=== PATIENT | female | born 1955 | race Caucasian/White ===

== ENCOUNTER 2018-11-06 07:09 | Emergency (ER) | payer MEDICARE, MEDICAID ==
--- NOTE | 2018-11-06 07:17 | EDM.PDOC ---
ED HPI GENERAL MEDICAL PROBLEM - General Chief Complaint: Lower Extremity Injury/Pain Stated Complaint: LEFT FOOT SWOLLEN Time Seen by Provider: 11/06/18 07:16 Source of Information: Reports: EMS History Limitations: Reports: No Limitations, Altered Mental Status - History of Present Illness INITIAL COMMENTS - FREE TEXT/NARRATIVE: History of present illness: []Patient is a resident at [facility] who was sent over on the [employer] [employer] for evaluation of her left foot has swelling. Review of systems: As per history of present illness and below otherwise all systems reviewed and negative. Past medical history: As per history of present illness and as reviewed below otherwise noncontributory. Surgical history: As per history of present illness and as reviewed below otherwise noncontributory. Social history: No reported history of drug or alcohol abuse. Family history: As per history of present illness and as reviewed below otherwise noncontributory. Physical exam: General: Well developed, thin in NAD HEENT: Atraumatic, normocephalic, pupils reactive, negative for conjunctival pallor or scleral icterus, mucous membranes moist, throat clear, neck supple, nontender, trachea midline. Lungs: Clear to auscultation, breath sounds equal bilaterally, chest nontender. Heart: S1S2, regular, negative for clicks, rubs, or JVD. Abdomen: NABS, Soft, nondistended, nontender. Negative for masses or hepatosplenomegaly. Negative for costovertebral tenderness. Pelvis: Stable nontender. Genitourinary: Deferred. Rectal: Deferred. Extremities: Ecchymosis on right big toe, left foot is edematous and mildly erythematous not warm to touch pulses are and visible contractures Neuro: Awake, Motor and sensory unremarkable throughout. Exam nonfocal. Skin:warm and dry Diagnostics: Signs stable, x-ray left foot-rays -achilles bursitis no acute fracture on throughout , CBC Therapeutics: Tylenol with Codeine ED Course: Stable Impression: Left swelling, Prescriptions: none Plan: Take meds as directed, follow up with your primary care physician, return to ER if symptoms worsen or change. Definitive disposition and diagnosis as appropriate pending reevaluation and review of above. - Related Data Allergies Allergy/AdvReac Type Severity Reaction Status Date / Time Penicillins Allergy Rash Verified 11/06/18 07:16 venom-honey bee Allergy Anaphylactic Verified 11/06/18 07:16 [bee venom (honey bee)] Shock Home Meds: Home Meds Polyethylene Glycol 3350 [Miralax] 17 g PO BID 11/20/14 [History] fluvoxaMINE Maleate [Fluvoxamine Maleate] 50 mg PO BID 11/20/14 [History] Acetaminophen [Arthritis Pain Relief] 650 mg PO Q4HR PRN 11/06/18 [History] Bisacodyl [Gentle Laxative] 10 mg RC ASDIRECTED PRN 11/06/18 [History] Cholecalciferol (Vitamin D3) [Vitamin D3] 1,000 unit PO DAILY 11/06/18 [History] ClonazePAM [KlonoPIN] 1 tab PO BID 11/06/18 [History] Docusate Sodium [Colace] 100 mg PO DAILY 11/06/18 [History] Multivitamin [Multivitamins] 1 each PO DAILY 11/06/18 [History] traZODone HCl [Trazodone HCl] 25 mg PO BEDTIME 11/06/18 [History] Review of Systems - Review of Systems Review Of Systems: See Below ED EXAM, GENERAL - Physical Exam Exam: See Below Course - Vital Signs Last Recorded V/S: Last Vital Signs Temp 98.3 F 11/06/18 07:14 Pulse 98 11/06/18 07:14 Resp 20 11/06/18 07:14 BP 130/56 L 11/06/18 07:14 Pulse Ox 92 L 11/06/18 07:14 - Orders/Labs/Meds Labs: Laboratory Tests 11/06/18 Range/Units 07:36 WBC 10.89 (4.0-11.0) K/uL RBC 4.21 L (4.30-5.90) M/uL Hgb 13.2 (12.0-16.0) g/dL Hct 40.8 (36.0-46.0) % MCV 96.9 (80.0-98.0) fL MCH 31.4 (27.0-32.0) pg MCHC 32.4 (31.0-37.0) g/dL RDW Std Deviation 46.6 (28.0-62.0) fl RDW Coeff of John 13 (11.0-15.0) % Plt Count 123 L (150-400) K/uL MPV 10.00 (7.40-12.00) fL Neut % (Auto) 71.6 (48.0-80.0) % Lymph % (Auto) 17.6 (16.0-40.0) % [place] % (Auto) 7.3 (0.0-15.0) % Eos % (Auto) 3.2 (0.0-7.0) % Baso % (Auto) 0.3 (0.0-1.5) % Neut # (Auto) 7.8 H (1.4-5.7) K/uL Lymph # (Auto) 1.9 (0.6-2.4) K/uL [place] # (Auto) 0.8 (0.0-0.8) K/uL Eos # (Auto) 0.4 (0.0-0.7) K/uL Baso # (Auto) 0.0 (0.0-0.1) K/uL Nucleated RBC % 0.0 /100WBC Nucleated RBCs # 0 K/uL Meds: Medications Discontinued Medications Generic Name Dose Route Start Last Admin Trade Name Freq PRN Reason Stop Dose Admin Acetaminophen/Codeine Phosphate 15 ml 11/06/18 08:35 Tylenol/Codeine 120-12 Mg/5 Ml PO 11/06/18 08:36 ONETIME ONE Departure - Departure Time of Disposition: 08:40 Disposition: DC/Tfer to [facility] Condition: Good, Fair Clinical Impression: Swelling of left foot - Discharge Information *PRESCRIPTION DRUG MONITORING PROGRAM REVIEWED*: Not Applicable *COPY OF PRESCRIPTION DRUG MONITORING REPORT IN PATIENT [place]: Not Applicable Referrals: PCP,None [Primary Care Provider] - Forms: ED Department Discharge Additional Instructions: The following information is given to patients seen in the emergency department who are being discharged to home. This information is to outline your options for follow-up care. We provide all patients seen in our emergency department with a follow-up referral. The need for follow-up, as well as the timing and circumstances, are variable depending upon the specifics of your emergency department visit. If you don't have a primary care physician on staff, we will provide you with a referral. We always advise you to contact your personal physician following an emergency department visit to inform them of the circumstance of the visit and for follow-up with them and/or the need for any referrals to a consulting specialist. The emergency department will also refer you to a specialist when appropriate. This referral assures that you have the opportunity for follow-up care with a specialist. All of these measure are taken in an effort to provide you with optimal care, which includes your follow-up. Under all circumstances we always encourage you to contact your private physician who remains a resource for coordinating your care. When calling for follow-up care, please make the office aware that this follow-up is from your recent emergency room visit. If for any reason you are refused follow-up, please contact the [facility] Emergency Department at and asked to speak to the emergency department charge nurse. Take meds as directed, follow up with your primary care physician, return to ER if symptoms worsen or change. [facility] [address] [place] [id number]
--- NOTE | 2018-11-06 08:24 | CR ---
INDICATION: Left foot pain and swelling. COMPARISON: None. TECHNIQUE: Two views of the left foot. FINDINGS: The bones are demineralized. Small plantar calcaneal spur. No acute fracture or dislocation. Swelling in the region of the distal Achilles tendon could be due to bursitis or Achilles tendon pathology. Diffuse soft tissue swelling. IMPRESSION: 1. Opacity/swelling in the region of the distal Achilles tendon could be due to bursitis or perhaps Achilles tendon pathology. 2. Diffuse soft tissue swelling and markedly demineralized bones. 3. No acute fracture. Dictated by Christopher Pérez MD @ Nov 06 2018 8:19AM Signed by Dr. Christopher Pérez @ Nov 06 2018 8:22AM
[2018-11-06] MEDS ORDERED: Acetaminophen/Codeine 120-12 MG/5 ML Soln 5 ML UD Cup PO ONE (08:35)
[2018-11-06 09:23] VITALS: BP 107/52; PULSE 94
== END 2018-11-06 09:17 ==
LOC: MW.ED 07:09
DX: M79.89 Other specified soft tissue disorders (principal); M79.81 Nontraumatic hematoma of soft tissue; Z88.0 Allergy status to penicillin; Z91.030 Bee allergy status; Z79.899 Other long term (current) drug therapy
CPT/HCPCS: 36415; 73620; 85025; 99283; A9270

== ENCOUNTER 2019-12-29 15:23 | Inpatient (IN) | payer MEDICARE, MEDICAID ==
--- NOTE | 2019-12-29 16:06 | EDM.PDOC ---
<Jj Tarango - Last Filed: 12/29/19 20:24> ED HPI GENERAL MEDICAL PROBLEM - General Chief Complaint: Respiratory Problem Stated Complaint: UNKNOWN BELKIS PATIENT Time Seen by Provider: 12/29/19 15:53 - Related Data Allergies Allergy/AdvReac Type Severity Reaction Status Date / Time Penicillins Allergy Rash Verified 11/06/18 07:16 venom-honey bee Allergy Anaphylactic Verified 11/06/18 07:16 [bee venom (honey bee)] Shock Home Meds: Home Meds fluvoxaMINE Maleate [Fluvoxamine Maleate] 50 mg PO BID 11/20/14 [History] polyethylene glycoL 3350 [Miralax] 17 g PO BID 11/20/14 [History] Acetaminophen [Arthritis Pain Relief] 650 mg PO Q4HR PRN 11/06/18 [History] Bisacodyl [Gentle Laxative] 10 mg RC ASDIRECTED PRN 11/06/18 [History] Cholecalciferol (Vitamin D3) [Vitamin D3] 1,000 unit PO DAILY 11/06/18 [History] ClonazePAM [KlonoPIN] 1 tab PO BID 11/06/18 [History] Docusate Sodium [Colace] 100 mg PO DAILY 11/06/18 [History] Multivitamin [Multivitamins] 1 each PO DAILY 11/06/18 [History] traZODone HCl [Trazodone HCl] 25 mg PO BEDTIME 11/06/18 [History] Departure - Departure Time of Disposition: 20:24 Disposition: Admitted As Inpatient 67 Condition: Good Clinical Impression: UTI (urinary tract infection), Hypoxia - Discharge Information *PRESCRIPTION DRUG MONITORING PROGRAM REVIEWED*: Not Applicable *COPY OF PRESCRIPTION DRUG MONITORING REPORT IN PATIENT [place]: Not Applicable <Ricardo Slater - Last Filed: 12/30/19 06:59> ED HPI GENERAL MEDICAL PROBLEM - General Source of Information: Reports: Patient History Limitations: Reports: Other (dementia) - History of Present Illness INITIAL COMMENTS - FREE TEXT/NARRATIVE: 63-year-old female past medical history bipolar disorder, anxiety, depression, PTSD, intellectual disability presents from [facility] for fever, tac hypnea, tachycardia, rash to abdomen. Patient answers yes when asked her name, but does not answer any other questions. Past Medical History Psychiatric History: Reports: Anxiety, Bipolar, Mood Swings, PTSD Endocrine/Metabolic History: Reports: Hypothyroidism Hematologic History: Reports: Anemia Social & Family History - Family History Family Medical History: No Pertinent Family History ED ROS GENERAL - Review of Systems Review Of Systems: Unable To Obtain Reason Not Obtained: nonverbal ED EXAM, GENERAL - Physical Exam Exam: See Below Exam Limited By: Other (intellectual disability) General Appearance: Alert, No Apparent Distress Throat/Mouth: No Airway Compromise Head: Atraumatic, Normocephalic Neck: Normal Inspection Respiratory/Chest: No Respiratory Distress, Lungs Clear, Normal Breath Sounds, No Accessory Muscle Use Cardiovascular: Normal Peripheral Pulses, Regular Rate, Rhythm GI/Abdominal: Soft, Non-Tender Extremities: Normal Inspection Neurological: Alert Skin Exam: Warm, Dry, Intact, Normal Color #1 Interpretation EKG Date: 12/29/19 Time: 16:52 Rhythm: Other (sinus tach) Rate (Beats/Min): 101 [place]: Normal P-Wave: Present QRS: Normal ST-T: Normal QT: Prolonged (514) UT/PQ Interval: 142 Comparison: NA - No Prior EKG Course - Vital Signs Last Recorded V/S: Last Vital Signs Temp 98.1 F 12/30/19 04:40 Pulse 108 H 12/30/19 04:40 Resp 26 H 12/30/19 04:40 BP 122/56 L 12/30/19 04:40 Pulse Ox 91 L 12/30/19 04:40 - Orders/Labs/Meds Orders: Active Orders 24 hr Category Date Time Status Patient Status [ADT] Routine ADT 12/29/19 20:23 Active Cardiac Monitoring [RC] . DIRECTED Care 12/29/19 16:20 Active EKG Documentation Completion [RC] STAT Care 12/29/19 16:20 Active Buckner Catheter Insertion [Insert Urinary Catheter] [OM. Care 12/29/19 18:45 Ordered PC] Q24H Pulse Oximetry [RC] ASDIRECTED Care 12/29/19 16:20 Active Urinary Catheter Assessment [RC] ASDIRECTED Care 12/29/19 18:41 Active CULTURE BLOOD [BC] Stat Lab 12/29/19 17:01 Results CULTURE BLOOD [BC] Stat Lab 12/29/19 17:06 Received Sodium Chloride 0.9% [Saline Flush] Med 12/29/19 16:20 Active 10 ml FLUSH ASDIRECTED PRN Sodium Chloride 0.9% [Saline Flush] Med 12/29/19 16:20 Active 2.5 ml FLUSH ASDIRECTED PRN Blood Culture x2 Reflex Set [OM.PC] Stat Ot 12/29/19 16:21 Ordered Saline Lock Insert [OM.PC] Stat Ot 12/29/19 16:20 Ordered Medication Orders Bisacodyl (Dulcolax) 10 mg RECTAL Q3D PRN PRN Reason: Constipation Cholecalciferol (Vitamin D3) 25 mcg PO DAILY [facility] Clonazepam (Klonopin) 0.5 mg PO BID [facility] Docusate Sodium (Colace) 100 mg PO DAILY [facility] Fluvoxamine Maleate (Fluvoxamine) 50 mg PO BID [facility] Heparin Sodium (Porcine) (Heparin Sodium) 5,000 units SUBCUT Q8H [facility] Last Admin: 12/30/19 02:46 Dose: 5,000 units Documented by: BART Azithromycin 500 mg/ Sodium (Chloride) 250 mls @ 250 mls/hr IV Q24H [facility] Last Admin: 12/30/19 02:46 Dose: 250 mls/hr Documented by: BART Cefepime HCl 1 gm/ Premix 50 mls @ 100 mls/hr IV Q8H [facility] Last Admin: 12/30/19 02:46 Dose: 100 mls/hr Documented by: BART Non-Formulary Medication (Acetaminophen) 650 mg PO Q4HR PRN PRN Reason: Pain Polyethylene Glycol (Miralax) 17 gm PO BID [facility] Sodium Chloride (Saline Flush) 10 ml FLUSH ASDIRECTED PRN PRN Reason: Keep Vein Open Last Admin: 12/29/19 16:44 Dose: 10 ml Documented by: SAL Sodium Chloride (Saline Flush) 2.5 ml FLUSH ASDIRECTED PRN PRN Reason: Keep Vein Open Last Admin: 12/29/19 16:44 Dose: 2.5 ml Documented by: SAL Trazodone HCl (Trazodone) 25 mg PO BEDTIME [facility] Labs: Laboratory Tests 12/29/19 12/29/19 12/29/19 Range/Units 16:43 16:43 16:43 WBC 11.94 H (4.0-11.0) K/uL RBC 4.28 L (4.30-5.90) M/uL Hgb 13.7 (12.0-16.0) g/dL Hct 41.6 (36.0-46.0) % MCV 97.2 (80.0-98.0) fL MCH 32.0 (27.0-32.0) pg MCHC 32.9 (31.0-37.0) g/dL RDW Std Deviation 46.4 (28.0-62.0) fl RDW Coeff of John 13 (11.0-15.0) % Plt Count 104 L (150-400) K/uL MPV 10.70 (7.40-12.00) fL Neut % (Auto) 84.6 H (48.0-80.0) % Lymph % (Auto) 9.4 L (16.0-40.0) % [place] % (Auto) 5.2 (0.0-15.0) % Eos % (Auto) 0.5 (0.0-7.0) % Baso % (Auto) 0.3 (0.0-1.5) % Neut # (Auto) 10.1 H (1.4-5.7) K/uL Lymph # (Auto) 1.1 (0.6-2.4) K/uL [place] # (Auto) 0.6 (0.0-0.8) K/uL Eos # (Auto) 0.1 (0.0-0.7) K/uL Baso # (Auto) 0.0 (0.0-0.1) K/uL Nucleated RBC % 0.0 /100WBC Nucleated RBCs # 0 K/uL INR 1.01 APTT 23.3 (18.6-31.3) SEC Lactate 1.5 (0.20-2.00) mmol/L Sodium (136-145) mmol/L Potassium (3.5-5.1) mmol/L Chloride (98-107) mmol/L Carbon Dioxide (21.0-32.0) mmol/L BUN (7.0-18.0) mg/dL Creatinine (0.6-1.0) mg/dL Est Cr Clr Drug Dosing Estimated GFR (MDRD) ml/min Glucose (74-106) mg/dL Calcium (8.5-10.1) mg/dL Magnesium (1.8-2.4) mg/dL Total Bilirubin (0.2-1.0) mg/dL AST (15-37) IU/L ALT (14-63) IU/L Alkaline Phosphatase (46-116) U/L Troponin I (0.000-0.056) ng/mL C-Reactive Protein (0.00-0.90) mg/dL B-Natriuretic Peptide (<100) PG/ML Total Protein (6.4-8.2) g/dL Albumin (3.4-5.0) g/dL Globulin (2.6-4.0) g/dL Albumin/Globulin Ratio (0.9-1.6) Lipase (73-393) U/L Urine Color Urine Appearance Urine pH (5.0-8.0) Ur Specific [place] (1.001-1.035) Urine Protein (NEGATIVE) mg/dL Urine Glucose (UA) (NEGATIVE) mg/dL Urine Ketones (NEGATIVE) mg/dL Urine Occult Blood (NEGATIVE) Urine Nitrite (NEGATIVE) Urine Bilirubin (NEGATIVE) Urine Urobilinogen (<2.0) EU/dL Ur Leukocyte Esterase (NEGATIVE) Urine RBC (0-2/HPF) Urine WBC (0-5/HPF) Ur Epithelial Cells (NONE-FEW) Urine Bacteria (NEGATIVE) SARS-CoV-2 RNA ([place]) (NEGATIVE) 12/29/19 12/29/19 12/29/19 Range/Units 16:43 16:43 18:44 WBC (4.0-11.0) K/uL RBC (4.30-5.90) M/uL Hgb (12.0-16.0) g/dL Hct (36.0-46.0) % MCV (80.0-98.0) fL MCH (27.0-32.0) pg MCHC (31.0-37.0) g/dL RDW Std Deviation (28.0-62.0) fl RDW Coeff of John (11.0-15.0) % Plt Count (150-400) K/uL MPV (7.40-12.00) fL Neut % (Auto) (48.0-80.0) % Lymph % (Auto) (16.0-40.0) % [place] % (Auto) (0.0-15.0) % Eos % (Auto) (0.0-7.0) % Baso % (Auto) (0.0-1.5) % Neut # (Auto) (1.4-5.7) K/uL Lymph # (Auto) (0.6-2.4) K/uL [place] # (Auto) (0.0-0.8) K/uL Eos # (Auto) (0.0-0.7) K/uL Baso # (Auto) (0.0-0.1) K/uL Nucleated RBC % /100WBC Nucleated RBCs # K/uL INR APTT (18.6-31.3) SEC Lactate (0.20-2.00) mmol/L Sodium 142 (136-145) mmol/L Potassium 4.2 (3.5-5.1) mmol/L Chloride 108 H (98-107) mmol/L Carbon Dioxide 26.3 (21.0-32.0) mmol/L BUN 18 (7.0-18.0) mg/dL Creatinine 0.7 (0.6-1.0) mg/dL Est Cr Clr Drug Dosing TNP Estimated GFR (MDRD) > 60.0 ml/min Glucose 126 H (74-106) mg/dL Calcium 9.0 (8.5-10.1) mg/dL Magnesium 2.2 (1.8-2.4) mg/dL Total Bilirubin 0.7 (0.2-1.0) mg/dL AST 65 H (15-37) IU/L ALT 40 (14-63) IU/L Alkaline Phosphatase 70 (46-116) U/L Troponin I 0.554 H* (0.000-0.056) ng/mL C-Reactive Protein 21.40 H (0.00-0.90) mg/dL B-Natriuretic Peptide 426 H (<100) PG/ML Total Protein 7.6 (6.4-8.2) g/dL Albumin 3.4 (3.4-5.0) g/dL Globulin 4.2 H (2.6-4.0) g/dL Albumin/Globulin Ratio 0.8 L (0.9-1.6) Lipase 109 (73-393) U/L Urine Color YELLOW Urine Appearance CLEAR Urine pH 6.5 (5.0-8.0) Ur Specific [place] 1.025 (1.001-1.035) Urine Protein 30 H (NEGATIVE) mg/dL Urine Glucose (UA) 100 H (NEGATIVE) mg/dL Urine Ketones 15 H (NEGATIVE) mg/dL Urine Occult Blood SMALL H (NEGATIVE) Urine Nitrite POSITIVE H (NEGATIVE) Urine Bilirubin NEGATIVE (NEGATIVE) Urine Urobilinogen 0.2 (<2.0) EU/dL Ur Leukocyte Esterase TRACE H (NEGATIVE) Urine RBC 2-3 (0-2/HPF) Urine WBC 2-3 (0-5/HPF) Ur Epithelial Cells RARE (NONE-FEW) Urine Bacteria 3+ H (NEGATIVE) SARS-CoV-2 RNA ([place]) (NEGATIVE) 12/29/19 12/29/19 Range/Units 18:52 18:57 WBC (4.0-11.0) K/uL RBC (4.30-5.90) M/uL Hgb (12.0-16.0) g/dL Hct (36.0-46.0) % MCV (80.0-98.0) fL MCH (27.0-32.0) pg MCHC (31.0-37.0) g/dL RDW Std Deviation (28.0-62.0) fl RDW Coeff of John (11.0-15.0) % Plt Count (150-400) K/uL MPV (7.40-12.00) fL Neut % (Auto) (48.0-80.0) % Lymph % (Auto) (16.0-40.0) % [place] % (Auto) (0.0-15.0) % Eos % (Auto) (0.0-7.0) % Baso % (Auto) (0.0-1.5) % Neut # (Auto) (1.4-5.7) K/uL Lymph # (Auto) (0.6-2.4) K/uL [place] # (Auto) (0.0-0.8) K/uL Eos # (Auto) (0.0-0.7) K/uL Baso # (Auto) (0.0-0.1) K/uL Nucleated RBC % /100WBC Nucleated RBCs # K/uL INR APTT (18.6-31.3) SEC Lactate (0.20-2.00) mmol/L Sodium (136-145) mmol/L Potassium (3.5-5.1) mmol/L Chloride (98-107) mmol/L Carbon Dioxide (21.0-32.0) mmol/L BUN (7.0-18.0) mg/dL Creatinine (0.6-1.0) mg/dL Est Cr Clr Drug Dosing Estimated GFR (MDRD) ml/min Glucose (74-106) mg/dL Calcium (8.5-10.1) mg/dL Magnesium (1.8-2.4) mg/dL Total Bilirubin (0.2-1.0) mg/dL AST (15-37) IU/L ALT (14-63) IU/L Alkaline Phosphatase (46-116) U/L Troponin I 0.498 H* (0.000-0.056) ng/mL C-Reactive Protein (0.00-0.90) mg/dL B-Natriuretic Peptide (<100) PG/ML Total Protein (6.4-8.2) g/dL Albumin (3.4-5.0) g/dL Globulin (2.6-4.0) g/dL Albumin/Globulin Ratio (0.9-1.6) Lipase (73-393) U/L Urine Color Urine Appearance Urine pH (5.0-8.0) Ur Specific [place] (1.001-1.035) Urine Protein (NEGATIVE) mg/dL Urine Glucose (UA) (NEGATIVE) mg/dL Urine Ketones (NEGATIVE) mg/dL Urine Occult Blood (NEGATIVE) Urine Nitrite (NEGATIVE) Urine Bilirubin (NEGATIVE) Urine Urobilinogen (<2.0) EU/dL Ur Leukocyte Esterase (NEGATIVE) Urine RBC (0-2/HPF) Urine WBC (0-5/HPF) Ur Epithelial Cells (NONE-FEW) Urine Bacteria (NEGATIVE) SARS-CoV-2 RNA ([place]) NEGATIVE (NEGATIVE) Meds: Medications Generic Name Dose Route Start Last Admin Trade Name Freq PRN Reason Stop Dose Admin Bisacodyl 10 mg 12/29/19 23:18 Dulcolax RECTAL Q3D PRN Constipation Cholecalciferol 25 mcg 12/30/19 09:00 Vitamin D3 PO DAILY [facility] Clonazepam 0.5 mg 12/30/19 09:00 Klonopin PO BID [facility] Docusate Sodium 100 mg 12/30/19 09:00 Colace PO DAILY [facility] Fluvoxamine Maleate 50 mg 12/30/19 09:00 Fluvoxamine PO BID [facility] Heparin Sodium (Porcine) 5,000 units 12/30/19 00:00 12/30/19 02:46 Heparin Sodium SUBCUT 5,000 units Q8H ANDREZ Administration Azithromycin 500 mg/ Sodium 250 mls @ 250 mls/hr 12/29/19 23:00 12/30/19 02:46 Chloride IV 250 mls/hr Q24H ANDREZ Administration Cefepime HCl 1 gm/ Premix 50 mls @ 100 mls/hr 12/30/19 01:00 12/30/19 02:46 IV 100 mls/hr Q8H ANDREZ Administration Non-Formulary Medication 650 mg 12/29/19 23:18 Acetaminophen PO Q4HR PRN Pain Polyethylene Glycol 17 gm 12/30/19 09:00 Miralax PO BID ANDREZ Sodium Chloride 10 ml 12/29/19 16:20 12/29/19 16:44 Saline Flush FLUSH 10 ml ASDIRECTED PRN Administration Keep Vein Open Sodium Chloride 2.5 ml 12/29/19 16:20 12/29/19 16:44 Saline Flush FLUSH 2.5 ml ASDIRECTED PRN Administration Keep Vein Open Trazodone HCl 25 mg 12/30/19 21:00 Trazodone PO BEDTIME ANDREZ Discontinued Medications Generic Name Dose Route Start Last Admin Trade Name Freq PRN Reason Stop Dose Admin Azithromycin 500 mg 12/29/19 23:00 Zithromax IV Q24H ANDREZ Sodium Chloride 1,000 mls @ 999 mls/hr 12/29/19 16:20 12/29/19 16:43 Normal Saline IV 12/29/19 17:20 999 mls/hr .Bolus ONE Administration Cefepime HCl 2 gm/ Premix 50 mls @ 100 mls/hr 12/29/19 17:10 12/29/19 18:32 IV 12/29/19 17:39 100 mls/hr ONETIME ONE Administration - Re-Assessments/Exams Free Text/Narrative Re-Assessment/Exam: 12/29/19 18:44 Labs remarkable for elevated troponin, leukocytosis, chest x-ray is remarkable for developing infiltrate. We will follow up urinalysis and Covid swab. Second troponin ordered to make sure that it is not uptrending. If troponin remains stable, patient should be able to be admitted at our hospital for IV antibiotics and work-up of likely sepsis. 12/29/19 18:45 Of note patient does become hypoxic to the low 80s anytime she ripped off her nasal cannula. She easily oxygen needs to 94-95% w/ 4-L nc in place 12/29/19 19:05 Patient care signed out to night team physician pending repeat troponin, COVID- 19 testing, urinalysis, disposition. Sepsis Event Note (ED) - Evaluation Sepsis Screening Result: No Definite Risk - My Orders Last 24 Hours: My Active Orders 12/29/19 16:20 Cardiac Monitoring [RC] . DIRECTED EKG Documentation Completion [RC] STAT Pulse Oximetry [RC] ASDIRECTED Sodium Chloride 0.9% [Saline Flush] 10 ml FLUSH ASDIRECTED PRN Sodium Chloride 0.9% [Saline Flush] 2.5 ml FLUSH ASDIRECTED PRN Saline Lock Insert [OM.PC] Stat 12/29/19 16:21 Blood Culture x2 Reflex Set [OM.PC] Stat 12/29/19 17:01 CULTURE BLOOD [BC] Stat 12/29/19 17:06 CULTURE BLOOD [BC] Stat 12/29/19 18:41 Urinary Catheter Assessment [RC] ASDIRECTED 12/29/19 18:45 Buckner Catheter Insertion [Insert Urinary Catheter] [OM.PC] Q24H - Assessment/Plan Last 24 Hours: My Active Orders 12/29/19 16:20 Cardiac Monitoring [RC] . DIRECTED EKG Documentation Completion [RC] STAT Pulse Oximetry [RC] ASDIRECTED Sodium Chloride 0.9% [Saline Flush] 10 ml FLUSH ASDIRECTED PRN Sodium Chloride 0.9% [Saline Flush] 2.5 ml FLUSH ASDIRECTED PRN Saline Lock Insert [OM.PC] Stat 12/29/19 16:21 Blood Culture x2 Reflex Set [OM.PC] Stat 12/29/19 17:01 CULTURE BLOOD [BC] Stat 12/29/19 17:06 CULTURE BLOOD [BC] Stat 12/29/19 18:41 Urinary Catheter Assessment [RC] ASDIRECTED 12/29/19 18:45 Buckner Catheter Insertion [Insert Urinary Catheter] [OM.PC] Q24H
[2019-12-29] MEDS ORDERED: Sodium Chloride 0.9% 1,000 ML IV ONE (16:20)
[2019-12-29] MEDS ORDERED: Sodium Chloride 0.9% 10 ML Syringe FLUSH PRN (16:20)
[2019-12-29] MEDS ORDERED: Sodium Chloride 0.9% 2.5 ML Syringe FLUSH PRN (16:20)
--- NOTE | 2019-12-29 16:50 | CR ---
Indication: Tachypnea and fever Comparison: Single view chest April 03, 2014 Technique: Single AP view chest Findings: There is hyperinflation and chronic interstitial change. There are increased interstitial markings likely representing pulmonary edema. Airspace opacity in the left lung base is appreciated which may represent developing infiltrate. The cardiomediastinal silhouette is within normal limits. The bony thorax is grossly intact. Impression: Increased interstitial markings likely representing pulmonary edema with questionable developing infiltrate within the left lung base. Dictated by Bill Holt MD @ Dec 29 2019 4:46PM Signed by Dr. iBll Holt @ Dec 29 2019 4:48PM
[2019-12-29] MEDS ORDERED: Cefepime 2 GM in Premix Bag 1 BAG IV ONE (17:10)
[2019-12-29 17:25] LABS: BLOOD UREA NITROGEN,BUN 18 mg/dL (7.0-18.0); CARBON DIOXIDE,CO2 26.3 mmol/L (21.0-32.0); CHLORIDE,CL 108 mmol/L (98-107); GLUCOSE RANDOM 126 mg/dL (74-106); LIPASE 109 U/L (73-393); POTASSIUM,K 4.2 mmol/L (3.5-5.1); SODIUM,NA 142 mmol/L (136-145)
--- NOTE | 2019-12-29 20:26 | PCM.SN.2 ---
- Free Text/Narrative Note: Patient signed out to me from previous provider. Patient admitted for fever tachycardia tachypnea. Patient was found to have a UTI was started on antibiotics by previous provider. Patient also had elevated troponin. Troponin is downtrending. Previous provider believe this is demand ischemia has no EKG changes. We spoke to the hospitalist who will admit patient. We may hospitalist aware of positive troponins again patient has no EKG changes and troponin again is downtrending. Patient remained stable at this time.
[2019-12-29] MEDS ORDERED: Azithromycin 500 MG Vial IV SCH (23:00)
[2019-12-29] MEDS ORDERED: Bisacodyl 10 MG Supp RECTAL PRN (23:18)
--- NOTE | 2019-12-29 23:41 | PCM.HP.2 ---
H&P History of Present Illness - General Date of Service: 12/29/19 Admit Problem/Dx: Admission Diagnosis/Problem Admission Diagnosis/Problem UTI, Urinary tract infectious disease - History of Present Illness Initial Comments - Free Text/Narative: 64 yo female with pmh of bipolar disorder and intellectual disability, nonverbal at baseline who presents to the ED from [facility] with complaint of fever. In the ED patient was discovered to have UTI and given cefepime - Related Data Allergies/Adverse Reactions: Allergies Allergy/AdvReac Type Severity Reaction Status Date / Time Penicillins Allergy Rash Verified 11/06/18 07:16 venom-honey bee Allergy Anaphylactic Verified 11/06/18 07:16 [bee venom (honey bee)] Shock Home Medications: Home Meds fluvoxaMINE Maleate [Fluvoxamine Maleate] 50 mg PO BID 11/20/14 [History] polyethylene glycoL 3350 [Miralax] 17 g PO BID 11/20/14 [History] Acetaminophen [Arthritis Pain Relief] 650 mg PO Q4HR PRN 11/06/18 [History] Bisacodyl [Gentle Laxative] 10 mg RC ASDIRECTED PRN 11/06/18 [History] Cholecalciferol (Vitamin D3) [Vitamin D3] 1,000 unit PO DAILY 11/06/18 [History] Docusate Sodium [Colace] 100 mg PO DAILY 11/06/18 [History] Multivitamin [Multivitamins] 1 each PO DAILY 11/06/18 [History] RX: ClonazePAM [KlonoPIN] 1 tab PO BID 11/06/18 [History] traZODone HCl [Trazodone HCl] 25 mg PO BEDTIME 11/06/18 [History] Past Medical History Musculoskeletal History: Reports: Osteoarthritis Other Musculoskeletal History: difficulty walking,muscle weakness,hip pain Psychiatric History: Reports: Anxiety, Bipolar, Mood Swings, PTSD Other Psychiatric History: insomnia, restless legs syndrome Endocrine/Metabolic History: Reports: Hypothyroidism Hematologic History: Reports: Anemia Social & Family History - Family History Family Medical History: No Pertinent Family History - Caffeine Use Caffeine Use: Reports: None - Recreational Drug Use Recreational Drug Use: No H&P Review of Systems - Review of Systems: Review Of Systems: Comprehensive ROS is negative, except as noted in HPI. Exam - Exam Exam: See Below - Vital Signs Vital Signs: Last Vital Signs Temp 36.7 C 12/29/19 21:57 Pulse 105 H 12/29/19 21:57 Resp 40 H 12/29/19 21:57 BP 125/63 12/29/19 21:57 Pulse Ox 92 L 12/29/19 21:57 Weight: 55.338 kg - Exam General: Alert, Oriented HEENT: Mucosa Moist & [place] Lungs: Clear to Auscultation, Normal Respiratory Effort Cardiovascular: Regular Rate, Regular Rhythm GI/Abdominal Exam: Normal Bowel Sounds, Soft, Non-Tender Extremities: Non-Tender, No Pedal Edema Skin: Warm, Dry, Rash (petichial rash on trunk) - Patient Data Lab Results Last 24 hrs: Laboratory Results - last 24 hr 12/29/19 12/29/19 12/29/19 Range/Units 16:43 16:43 16:43 WBC 11.94 H (4.0-11.0) K/uL RBC 4.28 L (4.30-5.90) M/uL Hgb 13.7 (12.0-16.0) g/dL Hct 41.6 (36.0-46.0) % MCV 97.2 (80.0-98.0) fL MCH 32.0 (27.0-32.0) pg MCHC 32.9 (31.0-37.0) g/dL RDW Std Deviation 46.4 (28.0-62.0) fl RDW Coeff of John 13 (11.0-15.0) % Plt Count 104 L (150-400) K/uL MPV 10.70 (7.40-12.00) fL Neut % (Auto) 84.6 H (48.0-80.0) % Lymph % (Auto) 9.4 L (16.0-40.0) % [place] % (Auto) 5.2 (0.0-15.0) % Eos % (Auto) 0.5 (0.0-7.0) % Baso % (Auto) 0.3 (0.0-1.5) % Neut # (Auto) 10.1 H (1.4-5.7) K/uL Lymph # (Auto) 1.1 (0.6-2.4) K/uL [place] # (Auto) 0.6 (0.0-0.8) K/uL Eos # (Auto) 0.1 (0.0-0.7) K/uL Baso # (Auto) 0.0 (0.0-0.1) K/uL Nucleated RBC % 0.0 /100WBC Nucleated RBCs # 0 K/uL INR 1.01 APTT 23.3 (18.6-31.3) SEC Lactate 1.5 (0.20-2.00) mmol/L Sodium (136-145) mmol/L Potassium (3.5-5.1) mmol/L Chloride (98-107) mmol/L Carbon Dioxide (21.0-32.0) mmol/L BUN (7.0-18.0) mg/dL Creatinine (0.6-1.0) mg/dL Est Cr Clr Drug Dosing Estimated GFR (MDRD) ml/min Glucose (74-106) mg/dL Calcium (8.5-10.1) mg/dL Magnesium (1.8-2.4) mg/dL Total Bilirubin (0.2-1.0) mg/dL AST (15-37) IU/L ALT (14-63) IU/L Alkaline Phosphatase (46-116) U/L Troponin I (0.000-0.056) ng/mL C-Reactive Protein (0.00-0.90) mg/dL B-Natriuretic Peptide (<100) PG/ML Total Protein (6.4-8.2) g/dL Albumin (3.4-5.0) g/dL Globulin (2.6-4.0) g/dL Albumin/Globulin Ratio (0.9-1.6) Lipase (73-393) U/L Urine Color Urine Appearance Urine pH (5.0-8.0) Ur Specific [place] (1.001-1.035) Urine Protein (NEGATIVE) mg/dL Urine Glucose (UA) (NEGATIVE) mg/dL Urine Ketones (NEGATIVE) mg/dL Urine Occult Blood (NEGATIVE) Urine Nitrite (NEGATIVE) Urine Bilirubin (NEGATIVE) Urine Urobilinogen (<2.0) EU/dL Ur Leukocyte Esterase (NEGATIVE) Urine RBC (0-2/HPF) Urine WBC (0-5/HPF) Ur Epithelial Cells (NONE-FEW) Urine Bacteria (NEGATIVE) SARS-CoV-2 RNA ([place]) (NEGATIVE) 12/29/19 12/29/19 12/29/19 Range/Units 16:43 16:43 18:44 WBC (4.0-11.0) K/uL RBC (4.30-5.90) M/uL Hgb (12.0-16.0) g/dL Hct (36.0-46.0) % MCV (80.0-98.0) fL MCH (27.0-32.0) pg MCHC (31.0-37.0) g/dL RDW Std Deviation (28.0-62.0) fl RDW Coeff of John (11.0-15.0) % Plt Count (150-400) K/uL MPV (7.40-12.00) fL Neut % (Auto) (48.0-80.0) % Lymph % (Auto) (16.0-40.0) % [place] % (Auto) (0.0-15.0) % Eos % (Auto) (0.0-7.0) % Baso % (Auto) (0.0-1.5) % Neut # (Auto) (1.4-5.7) K/uL Lymph # (Auto) (0.6-2.4) K/uL [place] # (Auto) (0.0-0.8) K/uL Eos # (Auto) (0.0-0.7) K/uL Baso # (Auto) (0.0-0.1) K/uL Nucleated RBC % /100WBC Nucleated RBCs # K/uL INR APTT (18.6-31.3) SEC Lactate (0.20-2.00) mmol/L Sodium 142 (136-145) mmol/L Potassium 4.2 (3.5-5.1) mmol/L Chloride 108 H (98-107) mmol/L Carbon Dioxide 26.3 (21.0-32.0) mmol/L BUN 18 (7.0-18.0) mg/dL Creatinine 0.7 (0.6-1.0) mg/dL Est Cr Clr Drug Dosing TNP Estimated GFR (MDRD) > 60.0 ml/min Glucose 126 H (74-106) mg/dL Calcium 9.0 (8.5-10.1) mg/dL Magnesium 2.2 (1.8-2.4) mg/dL Total Bilirubin 0.7 (0.2-1.0) mg/dL AST 65 H (15-37) IU/L ALT 40 (14-63) IU/L Alkaline Phosphatase 70 (46-116) U/L Troponin I 0.554 H* (0.000-0.056) ng/mL C-Reactive Protein 21.40 H (0.00-0.90) mg/dL B-Natriuretic Peptide 426 H (<100) PG/ML Total Protein 7.6 (6.4-8.2) g/dL Albumin 3.4 (3.4-5.0) g/dL Globulin 4.2 H (2.6-4.0) g/dL Albumin/Globulin Ratio 0.8 L (0.9-1.6) Lipase 109 (73-393) U/L Urine Color YELLOW Urine Appearance CLEAR Urine pH 6.5 (5.0-8.0) Ur Specific [place] 1.025 (1.001-1.035) Urine Protein 30 H (NEGATIVE) mg/dL Urine Glucose (UA) 100 H (NEGATIVE) mg/dL Urine Ketones 15 H (NEGATIVE) mg/dL Urine Occult Blood SMALL H (NEGATIVE) Urine Nitrite POSITIVE H (NEGATIVE) Urine Bilirubin NEGATIVE (NEGATIVE) Urine Urobilinogen 0.2 (<2.0) EU/dL Ur Leukocyte Esterase TRACE H (NEGATIVE) Urine RBC 2-3 (0-2/HPF) Urine WBC 2-3 (0-5/HPF) Ur Epithelial Cells RARE (NONE-FEW) Urine Bacteria 3+ H (NEGATIVE) SARS-CoV-2 RNA ([place]) (NEGATIVE) 12/29/19 12/29/19 Range/Units 18:52 18:57 WBC (4.0-11.0) K/uL RBC (4.30-5.90) M/uL Hgb (12.0-16.0) g/dL Hct (36.0-46.0) % MCV (80.0-98.0) fL MCH (27.0-32.0) pg MCHC (31.0-37.0) g/dL RDW Std Deviation (28.0-62.0) fl RDW Coeff of John (11.0-15.0) % Plt Count (150-400) K/uL MPV (7.40-12.00) fL Neut % (Auto) (48.0-80.0) % Lymph % (Auto) (16.0-40.0) % [place] % (Auto) (0.0-15.0) % Eos % (Auto) (0.0-7.0) % Baso % (Auto) (0.0-1.5) % Neut # (Auto) (1.4-5.7) K/uL Lymph # (Auto) (0.6-2.4) K/uL [place] # (Auto) (0.0-0.8) K/uL Eos # (Auto) (0.0-0.7) K/uL Baso # (Auto) (0.0-0.1) K/uL Nucleated RBC % /100WBC Nucleated RBCs # K/uL INR APTT (18.6-31.3) SEC Lactate (0.20-2.00) mmol/L Sodium (136-145) mmol/L Potassium (3.5-5.1) mmol/L Chloride (98-107) mmol/L Carbon Dioxide (21.0-32.0) mmol/L BUN (7.0-18.0) mg/dL Creatinine (0.6-1.0) mg/dL Est Cr Clr Drug Dosing Estimated GFR (MDRD) ml/min Glucose (74-106) mg/dL Calcium (8.5-10.1) mg/dL Magnesium (1.8-2.4) mg/dL Total Bilirubin (0.2-1.0) mg/dL AST (15-37) IU/L ALT (14-63) IU/L Alkaline Phosphatase (46-116) U/L Troponin I 0.498 H* (0.000-0.056) ng/mL C-Reactive Protein (0.00-0.90) mg/dL B-Natriuretic Peptide (<100) PG/ML Total Protein (6.4-8.2) g/dL Albumin (3.4-5.0) g/dL Globulin (2.6-4.0) g/dL Albumin/Globulin Ratio (0.9-1.6) Lipase (73-393) U/L Urine Color Urine Appearance Urine pH (5.0-8.0) Ur Specific [place] (1.001-1.035) Urine Protein (NEGATIVE) mg/dL Urine Glucose (UA) (NEGATIVE) mg/dL Urine Ketones (NEGATIVE) mg/dL Urine Occult Blood (NEGATIVE) Urine Nitrite (NEGATIVE) Urine Bilirubin (NEGATIVE) Urine Urobilinogen (<2.0) EU/dL Ur Leukocyte Esterase (NEGATIVE) Urine RBC (0-2/HPF) Urine WBC (0-5/HPF) Ur Epithelial Cells (NONE-FEW) Urine Bacteria (NEGATIVE) SARS-CoV-2 RNA ([place]) NEGATIVE (NEGATIVE) Result Diagrams: 01/02/20 05:30 01/02/20 05:30 Tj Results Last 24 hrs: Microbiology 12/29/19 17:01 Anaerobic Blood Culture - Final Blood - Venous Sepsis Event Note - Evaluation Sepsis Screening Result: Sepsis Risk - Focused Exam Vital Signs: Vital Signs Temp Pulse Resp BP Pulse Ox 12/29/19 21:57 36.7 C 105 H 40 H 125/63 92 L 12/29/19 20:35 36.7 C 103 H 20 116/76 94 L 12/29/19 18:47 102 H 95 12/29/19 18:12 106 H 94 L 12/29/19 16:57 103 H 88 L 12/29/19 16:00 94 L 12/29/19 15:56 99 122/65 96 12/29/19 15:48 36.7 C 99 16 122/65 88 L Problem List Initiated/Reviewed/Updated: Yes Orders Last 24hrs: Active Orders 24 hr Category Date Time Status Patient Status [ADT] Routine ADT 12/29/19 20:23 Active Cardiac Monitoring [RC] . DIRECTED Care 12/29/19 16:20 Active EKG Documentation Completion [RC] STAT Care 12/29/19 16:20 Active [place] Catheter Insertion [Insert Urinary Catheter] [OM. Care 12/29/19 18:45 Ordered PC] Q24H Pulse Oximetry [RC] ASDIRECTED Care 12/29/19 16:20 Active Urinary Catheter Assessment [RC] ASDIRECTED Care 12/29/19 18:41 Active CULTURE BLOOD [BC] Stat Lab 12/29/19 17:01 Results CULTURE BLOOD [BC] Stat Lab 12/29/19 17:06 Received Acetaminophen Med 12/29/19 23:18 Ordered 650 mg PO Q4HR PRN Azithromycin [Zithromax] Med 12/29/19 23:30 Ordered 500 mg IV Q24H Cholecalciferol (Vitamin D3) [Vitamin D3] Med 12/30/19 09:00 Ordered 1,000 unit PO DAILY ClonazePAM [KlonoPIN] Med 12/30/19 09:00 Ordered 0.5 mg PO BID Docusate Sodium [Colace] Med 12/30/19 09:00 Ordered 100 mg PO DAILY Sodium Chloride 0.9% [Saline Flush] Med 12/29/19 16:20 Active 10 ml FLUSH ASDIRECTED PRN Sodium Chloride 0.9% [Saline Flush] Med 12/29/19 16:20 Active 2.5 ml FLUSH ASDIRECTED PRN bisacodyL [Dulcolax] Med 12/29/19 23:18 Ordered 10 mg RECTAL ASDIRECTED PRN fluvoxaMINE Maleate [Fluvoxamine Maleate] Med 12/30/19 09:00 Ordered 50 mg PO BID polyethylene glycoL 3350 [MiraLAX] Med 12/30/19 09:00 Ordered 17 gm PO BID traZODone Med 12/30/19 21:00 Ordered 25 mg PO BEDTIME Blood Culture x2 Reflex Set [OM.PC] Stat Oth 12/29/19 16:21 Ordered Saline Lock Insert [OM.PC] Stat Oth 12/29/19 16:20 Ordered Medication Orders Azithromycin (Zithromax) 500 mg IV Q24H ANDREZ Bisacodyl (Dulcolax) 10 mg RECTAL ASDIRECTED PRN PRN Reason: Constipation Clonazepam (Klonopin) 0.5 mg PO BID ANDREZ Docusate Sodium (Colace) 100 mg PO DAILY ANDREZ Non-Formulary Medication (Acetaminophen) 650 mg PO Q4HR PRN PRN Reason: Pain Non-Formulary Medication (Fluvoxamine Maleate [Fluvoxamine Maleate]) 50 mg PO BID ANDREZ Non-Formulary Medication (Cholecalciferol (Vitamin D3) [Vitamin D3]) 1,000 unit PO DAILY ANDREZ Polyethylene Glycol (Miralax) 17 gm PO BID ANDREZ Sodium Chloride (Saline Flush) 10 ml FLUSH ASDIRECTED PRN PRN Reason: Keep Vein Open Last Admin: 12/29/19 16:44 Dose: 10 ml Documented by: SAL Sodium Chloride (Saline Flush) 2.5 ml FLUSH ASDIRECTED PRN PRN Reason: Keep Vein Open Last Admin: 12/29/19 16:44 Dose: 2.5 ml Documented by: SAL Trazodone HCl (Trazodone) 25 mg PO BEDTIME [facility] Assessment/Plan Comment:: 66 yo female admitted for sepsis with UTI and suspected pneumonia. Treating with cefepime and azithromycin.
[2019-12-30] MEDS: Azithromycin 500 MG in Sodium Chloride 0.9% 250 ML IV SCH (02:46)
[2019-12-30] MEDS: Cefepime 1 GM in Premix Bag 1 BAG IV SCH ×3 (02:46→16:29)
[2019-12-30] MEDS: Heparin Sodium 5,000 Units/ML Vial SUBCUT SCH ×3 (02:46→16:29)
[2019-12-30 08:08] LABS: BLOOD UREA NITROGEN,BUN 16 mg/dL (7.0-18.0); CARBON DIOXIDE,CO2 26.6 mmol/L (21.0-32.0); CHLORIDE,CL 112 mmol/L (98-107); GLUCOSE RANDOM 103 mg/dL (74-106); POTASSIUM,K 4.1 mmol/L (3.5-5.1); SODIUM,NA 145 mmol/L (136-145)
[2019-12-30] MEDS ORDERED: Sodium Chloride 0.45% 1,000 ML IV SCH (08:15)
[2019-12-30] MEDS ORDERED: Sodium Chloride 0.9% 1,000 ML IV SCH (08:15)
--- NOTE | 2019-12-30 08:18 | PCM.PN ---
- General Info Date of Service: 12/30/19 Admission Dx/Problem (Free Text): Admission Diagnosis/Problem Admission Diagnosis/Problem UTI, Urinary tract infectious disease Subjective Update: Patient answering yes and no this morning but does not appear to understand que stions as she is not answering appropriately. Unable to obtain ROS. - Patient Data Vitals - Most Recent: Last Vital Signs Temp 98.1 F 12/30/19 04:40 Pulse 108 H 12/30/19 04:40 Resp 26 H 12/30/19 04:40 BP 122/56 L 12/30/19 04:40 Pulse Ox 91 L 12/30/19 04:40 Weight - Most Recent: 55.338 kg I&O - Last 24 Hours: Intake & Output 12/29/19 12/30/19 12/30/19 22:59 06:59 14:59 Intake Total 300 Output Total 200 Balance 100 Lab Results Last 24 Hours: Laboratory Results - last 24 hr 12/29/19 12/29/19 12/29/19 Range/Units 16:43 16:43 16:43 WBC 11.94 H (4.0-11.0) K/uL RBC 4.28 L (4.30-5.90) M/uL Hgb 13.7 (12.0-16.0) g/dL Hct 41.6 (36.0-46.0) % MCV 97.2 (80.0-98.0) fL MCH 32.0 (27.0-32.0) pg MCHC 32.9 (31.0-37.0) g/dL RDW Std Deviation 46.4 (28.0-62.0) fl RDW Coeff of John 13 (11.0-15.0) % Plt Count 104 L (150-400) K/uL MPV 10.70 (7.40-12.00) fL Neut % (Auto) 84.6 H (48.0-80.0) % Lymph % (Auto) 9.4 L (16.0-40.0) % [place] % (Auto) 5.2 (0.0-15.0) % Eos % (Auto) 0.5 (0.0-7.0) % Baso % (Auto) 0.3 (0.0-1.5) % Neut # (Auto) 10.1 H (1.4-5.7) K/uL Lymph # (Auto) 1.1 (0.6-2.4) K/uL [place] # (Auto) 0.6 (0.0-0.8) K/uL Eos # (Auto) 0.1 (0.0-0.7) K/uL Baso # (Auto) 0.0 (0.0-0.1) K/uL Nucleated RBC % 0.0 /100WBC Nucleated RBCs # 0 K/uL INR 1.01 APTT 23.3 (18.6-31.3) SEC Lactate 1.5 (0.20-2.00) mmol/L Sodium (136-145) mmol/L Potassium (3.5-5.1) mmol/L Chloride (98-107) mmol/L Carbon Dioxide (21.0-32.0) mmol/L BUN (7.0-18.0) mg/dL Creatinine (0.6-1.0) mg/dL Est Cr Clr Drug Dosing Estimated GFR (MDRD) ml/min Glucose (74-106) mg/dL Calcium (8.5-10.1) mg/dL Magnesium (1.8-2.4) mg/dL Total Bilirubin (0.2-1.0) mg/dL AST (15-37) IU/L ALT (14-63) IU/L Alkaline Phosphatase (46-116) U/L Troponin I (0.000-0.056) ng/mL C-Reactive Protein (0.00-0.90) mg/dL B-Natriuretic Peptide (<100) PG/ML Total Protein (6.4-8.2) g/dL Albumin (3.4-5.0) g/dL Globulin (2.6-4.0) g/dL Albumin/Globulin Ratio (0.9-1.6) Lipase (73-393) U/L Urine Color Urine Appearance Urine pH (5.0-8.0) Ur Specific [place] (1.001-1.035) Urine Protein (NEGATIVE) mg/dL Urine Glucose (UA) (NEGATIVE) mg/dL Urine Ketones (NEGATIVE) mg/dL Urine Occult Blood (NEGATIVE) Urine Nitrite (NEGATIVE) Urine Bilirubin (NEGATIVE) Urine Urobilinogen (<2.0) EU/dL Ur Leukocyte Esterase (NEGATIVE) Urine RBC (0-2/HPF) Urine WBC (0-5/HPF) Ur Epithelial Cells (NONE-FEW) Urine Bacteria (NEGATIVE) SARS-CoV-2 RNA ([place]) (NEGATIVE) 12/29/19 12/29/19 12/29/19 Range/Units 16:43 16:43 18:44 WBC (4.0-11.0) K/uL RBC (4.30-5.90) M/uL Hgb (12.0-16.0) g/dL Hct (36.0-46.0) % MCV (80.0-98.0) fL MCH (27.0-32.0) pg MCHC (31.0-37.0) g/dL RDW Std Deviation (28.0-62.0) fl RDW Coeff of John (11.0-15.0) % Plt Count (150-400) K/uL MPV (7.40-12.00) fL Neut % (Auto) (48.0-80.0) % Lymph % (Auto) (16.0-40.0) % [place] % (Auto) (0.0-15.0) % Eos % (Auto) (0.0-7.0) % Baso % (Auto) (0.0-1.5) % Neut # (Auto) (1.4-5.7) K/uL Lymph # (Auto) (0.6-2.4) K/uL [place] # (Auto) (0.0-0.8) K/uL Eos # (Auto) (0.0-0.7) K/uL Baso # (Auto) (0.0-0.1) K/uL Nucleated RBC % /100WBC Nucleated RBCs # K/uL INR APTT (18.6-31.3) SEC Lactate (0.20-2.00) mmol/L Sodium 142 (136-145) mmol/L Potassium 4.2 (3.5-5.1) mmol/L Chloride 108 H (98-107) mmol/L Carbon Dioxide 26.3 (21.0-32.0) mmol/L BUN 18 (7.0-18.0) mg/dL Creatinine 0.7 (0.6-1.0) mg/dL Est Cr Clr Drug Dosing TNP Estimated GFR (MDRD) > 60.0 ml/min Glucose 126 H (74-106) mg/dL Calcium 9.0 (8.5-10.1) mg/dL Magnesium 2.2 (1.8-2.4) mg/dL Total Bilirubin 0.7 (0.2-1.0) mg/dL AST 65 H (15-37) IU/L ALT 40 (14-63) IU/L Alkaline Phosphatase 70 (46-116) U/L Troponin I 0.554 H* (0.000-0.056) ng/mL C-Reactive Protein 21.40 H (0.00-0.90) mg/dL B-Natriuretic Peptide 426 H (<100) PG/ML Total Protein 7.6 (6.4-8.2) g/dL Albumin 3.4 (3.4-5.0) g/dL Globulin 4.2 H (2.6-4.0) g/dL Albumin/Globulin Ratio 0.8 L (0.9-1.6) Lipase 109 (73-393) U/L Urine Color YELLOW Urine Appearance CLEAR Urine pH 6.5 (5.0-8.0) Ur Specific [place] 1.025 (1.001-1.035) Urine Protein 30 H (NEGATIVE) mg/dL Urine Glucose (UA) 100 H (NEGATIVE) mg/dL Urine Ketones 15 H (NEGATIVE) mg/dL Urine Occult Blood SMALL H (NEGATIVE) Urine Nitrite POSITIVE H (NEGATIVE) Urine Bilirubin NEGATIVE (NEGATIVE) Urine Urobilinogen 0.2 (<2.0) EU/dL Ur Leukocyte Esterase TRACE H (NEGATIVE) Urine RBC 2-3 (0-2/HPF) Urine WBC 2-3 (0-5/HPF) Ur Epithelial Cells RARE (NONE-FEW) Urine Bacteria 3+ H (NEGATIVE) SARS-CoV-2 RNA ([place]) (NEGATIVE) 12/29/19 12/29/19 12/30/19 Range/Units 18:52 18:57 01:12 WBC (4.0-11.0) K/uL RBC (4.30-5.90) M/uL Hgb (12.0-16.0) g/dL Hct (36.0-46.0) % MCV (80.0-98.0) fL MCH (27.0-32.0) pg MCHC (31.0-37.0) g/dL RDW Std Deviation (28.0-62.0) fl RDW Coeff of John (11.0-15.0) % Plt Count (150-400) K/uL MPV (7.40-12.00) fL Neut % (Auto) (48.0-80.0) % Lymph % (Auto) (16.0-40.0) % [place] % (Auto) (0.0-15.0) % Eos % (Auto) (0.0-7.0) % Baso % (Auto) (0.0-1.5) % Neut # (Auto) (1.4-5.7) K/uL Lymph # (Auto) (0.6-2.4) K/uL [place] # (Auto) (0.0-0.8) K/uL Eos # (Auto) (0.0-0.7) K/uL Baso # (Auto) (0.0-0.1) K/uL Nucleated RBC % /100WBC Nucleated RBCs # K/uL INR APTT (18.6-31.3) SEC Lactate (0.20-2.00) mmol/L Sodium (136-145) mmol/L Potassium (3.5-5.1) mmol/L Chloride (98-107) mmol/L Carbon Dioxide (21.0-32.0) mmol/L BUN (7.0-18.0) mg/dL Creatinine (0.6-1.0) mg/dL Est Cr Clr Drug Dosing Estimated GFR (MDRD) ml/min Glucose (74-106) mg/dL Calcium (8.5-10.1) mg/dL Magnesium (1.8-2.4) mg/dL Total Bilirubin (0.2-1.0) mg/dL AST (15-37) IU/L ALT (14-63) IU/L Alkaline Phosphatase (46-116) U/L Troponin I 0.498 H* 0.405 H* (0.000-0.056) ng/mL C-Reactive Protein (0.00-0.90) mg/dL B-Natriuretic Peptide (<100) PG/ML Total Protein (6.4-8.2) g/dL Albumin (3.4-5.0) g/dL Globulin (2.6-4.0) g/dL Albumin/Globulin Ratio (0.9-1.6) Lipase (73-393) U/L Urine Color Urine Appearance Urine pH (5.0-8.0) Ur Specific [place] (1.001-1.035) Urine Protein (NEGATIVE) mg/dL Urine Glucose (UA) (NEGATIVE) mg/dL Urine Ketones (NEGATIVE) mg/dL Urine Occult Blood (NEGATIVE) Urine Nitrite (NEGATIVE) Urine Bilirubin (NEGATIVE) Urine Urobilinogen (<2.0) EU/dL Ur Leukocyte Esterase (NEGATIVE) Urine RBC (0-2/HPF) Urine WBC (0-5/HPF) Ur Epithelial Cells (NONE-FEW) Urine Bacteria (NEGATIVE) SARS-CoV-2 RNA ([place]) NEGATIVE (NEGATIVE) 12/30/19 12/30/19 12/30/19 Range/Units 07:18 07:18 07:18 WBC 9.37 (4.0-11.0) K/uL RBC 3.81 L (4.30-5.90) M/uL Hgb 12.2 (12.0-16.0) g/dL Hct 37.4 (36.0-46.0) % MCV 98.2 H (80.0-98.0) fL MCH 32.0 (27.0-32.0) pg MCHC 32.6 (31.0-37.0) g/dL RDW Std Deviation 47.0 (28.0-62.0) fl RDW Coeff of John 13 (11.0-15.0) % Plt Count 91 L (150-400) K/uL MPV 10.60 (7.40-12.00) fL Neut % (Auto) 77.5 (48.0-80.0) % Lymph % (Auto) 14.1 L (16.0-40.0) % [place] % (Auto) 5.1 (0.0-15.0) % Eos % (Auto) 3.1 (0.0-7.0) % Baso % (Auto) 0.2 (0.0-1.5) % Neut # (Auto) 7.3 H (1.4-5.7) K/uL Lymph # (Auto) 1.3 (0.6-2.4) K/uL [place] # (Auto) 0.5 (0.0-0.8) K/uL Eos # (Auto) 0.3 (0.0-0.7) K/uL Baso # (Auto) 0.0 (0.0-0.1) K/uL Nucleated RBC % 0.0 /100WBC Nucleated RBCs # 0 K/uL INR APTT (18.6-31.3) SEC Lactate (0.20-2.00) mmol/L Sodium 145 (136-145) mmol/L Potassium 4.1 (3.5-5.1) mmol/L Chloride 112 H (98-107) mmol/L Carbon Dioxide 26.6 (21.0-32.0) mmol/L BUN 16 (7.0-18.0) mg/dL Creatinine 0.6 (0.6-1.0) mg/dL Est Cr Clr Drug Dosing TNP Estimated GFR (MDRD) > 60.0 ml/min Glucose 103 (74-106) mg/dL Calcium 8.3 L (8.5-10.1) mg/dL Magnesium (1.8-2.4) mg/dL Total Bilirubin 0.7 (0.2-1.0) mg/dL AST 55 H (15-37) IU/L ALT 38 (14-63) IU/L Alkaline Phosphatase 59 (46-116) U/L Troponin I 0.257 H* (0.000-0.056) ng/mL C-Reactive Protein (0.00-0.90) mg/dL B-Natriuretic Peptide (<100) PG/ML Total Protein 6.1 L (6.4-8.2) g/dL Albumin 2.8 L (3.4-5.0) g/dL Globulin 3.3 (2.6-4.0) g/dL Albumin/Globulin Ratio 0.9 (0.9-1.6) Lipase (73-393) U/L Urine Color Urine Appearance Urine pH (5.0-8.0) Ur Specific [place] (1.001-1.035) Urine Protein (NEGATIVE) mg/dL Urine Glucose (UA) (NEGATIVE) mg/dL Urine Ketones (NEGATIVE) mg/dL Urine Occult Blood (NEGATIVE) Urine Nitrite (NEGATIVE) Urine Bilirubin (NEGATIVE) Urine Urobilinogen (<2.0) EU/dL Ur Leukocyte Esterase (NEGATIVE) Urine RBC (0-2/HPF) Urine WBC (0-5/HPF) Ur Epithelial Cells (NONE-FEW) Urine Bacteria (NEGATIVE) SARS-CoV-2 RNA ([place]) (NEGATIVE) Tj Results Last 24 Hours: Microbiology 12/29/19 17:01 Anaerobic Blood Culture - Final Blood - Venous Med Orders - Current: Current Medications Acetaminophen (Tylenol) 650 mg PO Q4HR PRN PRN Reason: Pain Bisacodyl (Dulcolax) 10 mg RECTAL Q3D PRN PRN Reason: Constipation Cholecalciferol (Vitamin D3) 25 mcg PO DAILY [facility] Clonazepam (Klonopin) 0.5 mg PO BID [facility] Docusate Sodium (Colace) 100 mg PO DAILY [facility] Fluvoxamine Maleate (Fluvoxamine) 50 mg PO BID [facility] Heparin Sodium (Porcine) (Heparin Sodium) 5,000 units SUBCUT Q8H [facility] Last Admin: 12/30/19 02:46 Dose: 5,000 units Documented by: Azithromycin 500 mg/ Sodium (Chloride) 250 mls @ 250 mls/hr IV Q24H [facility] Last Admin: 12/30/19 02:46 Dose: 250 mls/hr Documented by: Cefepime HCl 1 gm/ Premix 50 mls @ 100 mls/hr IV Q8H [facility] Last Admin: 12/30/19 02:46 Dose: 100 mls/hr Documented by: Sodium Chloride (Sodium Chloride 0.45%) 1,000 mls @ 100 mls/hr IV Q10H [facility] Polyethylene Glycol (Miralax) 17 gm PO BID [facility] Sodium Chloride (Saline Flush) 2.5 ml FLUSH ASDIRECTED PRN PRN Reason: Keep Vein Open Trazodone HCl (Trazodone) 25 mg PO BEDTIME [facility] Discontinued Medications Azithromycin (Zithromax) 500 mg IV Q24H [facility] Sodium Chloride (Normal Saline) 1,000 mls @ 999 mls/hr IV .Bolus ONE Stop: 12/29/19 17:20 Last Admin: 12/29/19 16:43 Dose: 999 mls/hr Documented by: Cefepime HCl 2 gm/ Premix 50 mls @ 100 mls/hr IV ONETIME ONE Stop: 12/29/19 17:39 Last Admin: 12/29/19 18:32 Dose: 100 mls/hr Documented by: Sodium Chloride (Normal Saline) 1,000 mls @ 100 mls/hr IV Q10H [facility] Sodium Chloride (Saline Flush) 10 ml FLUSH ASDIRECTED PRN PRN Reason: Keep Vein Open Last Admin: 12/29/19 16:44 Dose: 10 ml Documented by: Sodium Chloride (Saline Flush) 2.5 ml FLUSH ASDIRECTED PRN PRN Reason: Keep Vein Open Last Admin: 12/29/19 16:44 Dose: 2.5 ml Documented by: - Exam Quality Assessment: Supplemental Oxygen, Urine Catheter, DVT Prophylaxis General: Alert, Cooperative, No Acute Distress. No: Oriented Lungs: Normal Respiratory Effort, Crackles (Noted to left upper and lower lobes along with right lower). No: Wheezing Cardiovascular: Regular Rate, Regular Rhythm, No Murmurs GI/Abdominal Exam: Normal Bowel Sounds, Soft, Non-Tender Extremities: Normal Inspection, Normal Range of Motion, Non-Tender, No Pedal Edema Skin: Warm Wound/Incisions: Healing Well Neurological: No New Focal Deficit Psy/Mental Status: Alert, Normal Affect, Normal Mood Sepsis Event Note - Evaluation Sepsis Screening Result: No Definite Risk - Focused Exam Vital Signs: Vital Signs Temp Pulse Resp BP Pulse Ox Pulse Ox 12/30/19 04:40 98.1 F 108 H 26 H 122/56 L 91 L 12/29/19 23:52 97.1 F 113 H 28 H 127/63 91 L 12/29/19 23:42 92 L 12/29/19 21:57 98.1 F 105 H 40 H 125/63 92 L 12/29/19 20:35 98.1 F 103 H 20 116/76 94 L - Problem List & Annotations (1) Acute respiratory failure with hypoxia SNOMED Code(s): 50388915, 164500360 Code(s): J96.01 - ACUTE RESPIRATORY FAILURE WITH HYPOXIA Status: Acute Current Visit: Yes (2) Community acquired pneumonia SNOMED Code(s): 274139882 Code(s): J18.9 - PNEUMONIA, UNSPECIFIED ORGANISM Status: Acute Current Visit: Yes (3) UTI (urinary tract infection) SNOMED Code(s): 19971956 Code(s): N39.0 - URINARY TRACT INFECTION, SITE NOT SPECIFIED Status: Acute Current Visit: Yes (4) Altered mental status SNOMED Code(s): 768300930 Code(s): R41.82 - ALTERED MENTAL STATUS, UNSPECIFIED Status: Acute Current Visit: No Onset Date: 04/03/14 (5) Hypothyroidism SNOMED Code(s): 66459874 Code(s): E03.9 - HYPOTHYROIDISM, UNSPECIFIED Status: Acute Current Visit: Yes (6) Intellectual disability SNOMED Code(s): 972408228 Code(s): F79 - UNSPECIFIED INTELLECTUAL DISABILITIES Status: Acute Current Visit: Yes (7) Bipolar 1 disorder SNOMED Code(s): 151217743 Code(s): F31.9 - BIPOLAR DISORDER, UNSPECIFIED Status: Acute Current Visit: Yes - Problem List Review Problem List Initiated/Reviewed/Updated: Yes - My Orders Last 24 Hours: My Active Orders 12/30/19 08:09 Sodium Chloride 0.9% [Saline Flush] 2.5 ml FLUSH ASDIRECTED PRN Saline Lock Insert [OM.PC] Routine 12/30/19 08:10 Intake and Output [RC] QSHIFT 12/30/19 08:15 Sodium Chloride 0.45% 1,000 ml IV Q10H - Plan Plan:: 66 yo female admitted for sepsis with UTI and suspected pneumonia. 1. Sepsis secondary to UTI and suspected severe CAP - Continue treating with cefepime and azithromycin. - Repeat lactic acid 0.7 down from 1.5 - Blood cultures and urine culture pending - Chest x-ray revealed signs of pulmonary edema, will monitor fluid status closely - Continues to be on 2 to 2-1/2 L nasal cannula of oxygen - Unable to meaningfully perform I-S or cough and deep breathe due to intellectual disabilities - Thrombocytopenia noted does have petechial rash on abdomen. Will monitor closely -Buckner catheter in for close monitoring of urine output. Had approximately 200 mls out since admission. 2. Pulmonary edema - Monitor fluid status closely hold off on IV fluids unless needed for hypotension. - Obtain ECHO -No history of CHF noted. 3. Bipolar/intellectual disability -Continue home medications VTE prophylaxis: Heparin CODE STATUS DNR/DNI Dispo 2 to 3 days
[2019-12-30] MEDS ORDERED: Docusate Sodium 100 MG Cap PO SCH (09:00)
[2019-12-30] MEDS: Docusate Sodium Liquid 100 MG/10 ML UD Cup PO SCH ×2 (09:10→11:51)
[2019-12-30] MEDS: Polyethylene Glycol 3350 Powder 17 GM Packet PO SCH ×3 (09:10→22:07)
[2019-12-30] MEDS: Cholecalciferol (Vitamin D3) 25 MCG Tab PO SCH ×2 (09:11→11:52)
[2019-12-30] MEDS: fluvoxaMINE 50 MG Tab PO SCH ×3 (09:11→22:07)
[2019-12-30] MEDS: ClonazePAM 0.5 MG Tab PO SCH ×3 (09:11→22:07)
[2019-12-30] MEDS ORDERED: Sodium Chloride 0.9% 250 ML IV SCH (13:00)
--- NOTE | 2019-12-30 15:49 | PCM.SN.2 ---
- Free Text/Narrative Note: Repeat blood pressure after receiving 250 mL normal saline bolus was 115/60, heart rate remained slightly tachycardic at 106. Patient remained alert. Perfusing well cap refill less than 3 seconds. No significant tachypnea noted.
[2019-12-30] MEDS: traZODone 50 MG Tab PO SCH (22:07)
[2019-12-31] MEDS: Azithromycin 500 MG in Sodium Chloride 0.9% 250 ML IV SCH (00:01)
[2019-12-31] MEDS: Heparin Sodium 5,000 Units/ML Vial SUBCUT SCH ×3 (00:11→18:00)
[2019-12-31] MEDS: Cefepime 1 GM in Premix Bag 1 BAG IV SCH ×3 (01:25→17:59)
[2019-12-31 06:19] LABS: BLOOD UREA NITROGEN,BUN 22 mg/dL (7.0-18.0); CARBON DIOXIDE,CO2 23.3 mmol/L (21.0-32.0); CHLORIDE,CL 111 mmol/L (98-107); GLUCOSE RANDOM 83 mg/dL (74-106); POTASSIUM,K 3.7 mmol/L (3.5-5.1); SODIUM,NA 144 mmol/L (136-145)
--- NOTE | 2019-12-31 07:58 | PCM.PN ---
- General Info Date of Service: 12/31/19 Admission Dx/Problem (Free Text): Admission Diagnosis/Problem Admission Diagnosis/Problem UTI, Urinary tract infectious disease Subjective Update: Nonverbal. Does not appear to be in distress. Awake and alert this morning - Patient Data Vitals - Most Recent: Last Vital Signs Temp 98.2 F 12/31/19 04:00 Pulse 103 H 12/31/19 04:00 Resp 20 12/31/19 04:00 BP 119/59 L 12/31/19 04:00 Pulse Ox 93 L 12/31/19 04:00 Weight - Most Recent: 55.338 kg I&O - Last 24 Hours: Intake & Output 12/30/19 12/31/19 12/31/19 22:59 06:59 14:59 Intake Total 50 300 Output Total 200 250 Balance -150 50 Lab Results Last 24 Hours: Laboratory Results - last 24 hr 12/30/19 12/30/19 12/30/19 Range/Units 07:18 07:18 11:25 WBC (4.0-11.0) K/uL RBC (4.30-5.90) M/uL Hgb (12.0-16.0) g/dL Hct (36.0-46.0) % MCV (80.0-98.0) fL MCH (27.0-32.0) pg MCHC (31.0-37.0) g/dL RDW Std Deviation (28.0-62.0) fl RDW Coeff of John (11.0-15.0) % Plt Count (150-400) K/uL MPV (7.40-12.00) fL Neut % (Auto) (48.0-80.0) % Lymph % (Auto) (16.0-40.0) % [place] % (Auto) (0.0-15.0) % Eos % (Auto) (0.0-7.0) % Baso % (Auto) (0.0-1.5) % Neut # (Auto) (1.4-5.7) K/uL Lymph # (Auto) (0.6-2.4) K/uL [place] # (Auto) (0.0-0.8) K/uL Eos # (Auto) (0.0-0.7) K/uL Baso # (Auto) (0.0-0.1) K/uL Nucleated RBC % /100WBC Nucleated RBCs # K/uL Lactate 0.7 (0.20-2.00) mmol/L Sodium 145 (136-145) mmol/L Potassium 4.1 (3.5-5.1) mmol/L Chloride 112 H (98-107) mmol/L Carbon Dioxide 26.6 (21.0-32.0) mmol/L BUN 16 (7.0-18.0) mg/dL Creatinine 0.6 (0.6-1.0) mg/dL Est Cr Clr Drug Dosing TNP Estimated GFR (MDRD) > 60.0 ml/min Glucose 103 (74-106) mg/dL Calcium 8.3 L (8.5-10.1) mg/dL Total Bilirubin 0.7 (0.2-1.0) mg/dL AST 55 H (15-37) IU/L ALT 38 (14-63) IU/L Alkaline Phosphatase 59 (46-116) U/L Troponin I 0.257 H* (0.000-0.056) ng/mL Total Protein 6.1 L (6.4-8.2) g/dL Albumin 2.8 L (3.4-5.0) g/dL Globulin 3.3 (2.6-4.0) g/dL Albumin/Globulin Ratio 0.9 (0.9-1.6) SARS-CoV-2 RNA ([place]) (NEGATIVE) 12/30/19 12/31/19 12/31/19 Range/Units 21:00 05:31 05:31 WBC 7.73 (4.0-11.0) K/uL RBC 3.62 L (4.30-5.90) M/uL Hgb 11.5 L (12.0-16.0) g/dL Hct 35.4 L (36.0-46.0) % MCV 97.8 (80.0-98.0) fL MCH 31.8 (27.0-32.0) pg MCHC 32.5 (31.0-37.0) g/dL RDW Std Deviation 46.2 (28.0-62.0) fl RDW Coeff of John 13 (11.0-15.0) % Plt Count 115 L (150-400) K/uL MPV 11.10 (7.40-12.00) fL Neut % (Auto) 74.8 (48.0-80.0) % Lymph % (Auto) 16.4 (16.0-40.0) % [place] % (Auto) 5.4 (0.0-15.0) % Eos % (Auto) 3.0 (0.0-7.0) % Baso % (Auto) 0.4 (0.0-1.5) % Neut # (Auto) 5.8 H (1.4-5.7) K/uL Lymph # (Auto) 1.3 (0.6-2.4) K/uL [place] # (Auto) 0.4 (0.0-0.8) K/uL Eos # (Auto) 0.2 (0.0-0.7) K/uL Baso # (Auto) 0.0 (0.0-0.1) K/uL Nucleated RBC % 0.0 /100WBC Nucleated RBCs # 0 K/uL Lactate (0.20-2.00) mmol/L Sodium 144 (136-145) mmol/L Potassium 3.7 (3.5-5.1) mmol/L Chloride 111 H (98-107) mmol/L Carbon Dioxide 23.3 (21.0-32.0) mmol/L BUN 22 H (7.0-18.0) mg/dL Creatinine 0.6 (0.6-1.0) mg/dL Est Cr Clr Drug Dosing TNP Estimated GFR (MDRD) > 60.0 ml/min Glucose 83 (74-106) mg/dL Calcium 8.7 (8.5-10.1) mg/dL Total Bilirubin (0.2-1.0) mg/dL AST (15-37) IU/L ALT (14-63) IU/L Alkaline Phosphatase (46-116) U/L Troponin I (0.000-0.056) ng/mL Total Protein (6.4-8.2) g/dL Albumin (3.4-5.0) g/dL Globulin (2.6-4.0) g/dL Albumin/Globulin Ratio (0.9-1.6) SARS-CoV-2 RNA ([place]) NEGATIVE (NEGATIVE) Tj Results Last 24 Hours: Microbiology 12/29/19 17:06 Aerobic Blood Culture - Preliminary Blood - Venous - Lab Draw NO GROWTH AFTER 1 DAY Anaerobic Blood Culture - Preliminary NO GROWTH AFTER 1 DAY 12/29/19 17:01 Aerobic Blood Culture - Preliminary Blood - Venous NO GROWTH AFTER 1 DAY Anaerobic Blood Culture - Final Med Orders - Current: Current Medications Acetaminophen (Tylenol) 650 mg PO Q4HR PRN PRN Reason: Pain Bisacodyl (Dulcolax) 10 mg RECTAL Q3D PRN PRN Reason: Constipation Cholecalciferol (Vitamin D3) 25 mcg PO DAILY [facility] [place] Last Admin: 12/30/19 11:52 Dose: Not Given Documented by: Clonazepam (Klonopin) 0.5 mg PO BID [facility] [place] Last Admin: 12/30/19 22:07 Dose: Not Given Documented by: Docusate Sodium (Colace 50 Mg/5 Ml Liquid) 100 mg PO DAILY [facility] [place] Last Admin: 12/30/19 11:51 Dose: Not Given Documented by: Fluvoxamine Maleate (Fluvoxamine) 50 mg PO BID [facility] [place] Last Admin: 12/30/19 22:07 Dose: Not Given Documented by: Heparin Sodium (Porcine) (Heparin Sodium) 5,000 units SUBCUT Q8H [facility] [place] Last Admin: 12/31/19 00:11 Dose: 5,000 units Documented by: Azithromycin 500 mg/ Sodium (Chloride) 250 mls @ 250 mls/hr IV Q24H [facility] [place] Last Admin: 12/31/19 00:01 Dose: 250 mls/hr Documented by: Cefepime HCl 1 gm/ Premix 50 mls @ 100 mls/hr IV Q8H [facility] [place] Last Admin: 12/31/19 01:25 Dose: 100 mls/hr Documented by: Polyethylene Glycol (Miralax) 17 gm PO BID [facility] [place] Last Admin: 12/30/19 22:07 Dose: Not Given Documented by: Sodium Chloride (Saline Flush) 2.5 ml FLUSH ASDIRECTED PRN PRN Reason: Keep Vein Open Trazodone HCl (Trazodone) 25 mg PO BEDTIME [facility] [place] Last Admin: 12/30/19 22:07 Dose: Not Given Documented by: Discontinued Medications Azithromycin (Zithromax) 500 mg IV Q24H [facility] [place] Docusate Sodium (Colace) 100 mg PO DAILY [facility] [place] Sodium Chloride (Normal Saline) 1,000 mls @ 999 mls/hr IV .Bolus ONE Stop: 12/29/19 17:20 Last Admin: 12/29/19 16:43 Dose: 999 mls/hr Documented by: Cefepime HCl 2 gm/ Premix 50 mls @ 100 mls/hr IV ONETIME ONE Stop: 12/29/19 17:39 Last Admin: 12/29/19 18:32 Dose: 100 mls/hr Documented by: Sodium Chloride (Normal Saline) 1,000 mls @ 100 mls/hr IV Q10H [facility] Sodium Chloride (Sodium Chloride 0.45%) 1,000 mls @ 100 mls/hr IV Q10H [facility] Last Admin: 12/30/19 09:12 Dose: 100 mls/hr Documented by: Sodium Chloride (Normal Saline) 250 mls @ 999 mls/hr IV BOLUS [facility]REZ Stop: 12/30/19 13:16 Last Admin: 12/30/19 13:08 Dose: 999 mls/hr Documented by: Sodium Chloride (Saline Flush) 10 ml FLUSH ASDIRECTED PRN PRN Reason: Keep Vein Open Last Admin: 12/29/19 16:44 Dose: 10 ml Documented by: Sodium Chloride (Saline Flush) 2.5 ml FLUSH ASDIRECTED PRN PRN Reason: Keep Vein Open Last Admin: 12/29/19 16:44 Dose: 2.5 ml Documented by: - Exam General: Alert, Cooperative, No Acute Distress. No: Oriented Lungs: Crackles (Left upper and lower lobes), Other (Noted to not have oxygen on appears she had taken this off. Oxygen sats noted to be 82% oxygen replaced and sats improved to mid 90s.) Cardiovascular: Regular Rate, Regular Rhythm, No Murmurs GI/Abdominal Exam: Normal Bowel Sounds, Soft, Non-Tender Back Exam: Normal Inspection, Full Range of Motion Extremities: Normal Inspection, Normal Range of Motion, Non-Tender, No Pedal Edema Skin: Rash (Petechial rash to abdomen improving) Neurological: No New Focal Deficit Psy/Mental Status: Alert, Normal Affect, Normal Mood Sepsis Event Note - Evaluation Sepsis Screening Result: Sepsis Risk - Focused Exam Vital Signs: Vital Signs Temp Pulse Resp BP Pulse Ox Pulse Ox 12/31/19 04:00 98.2 F 103 H 20 119/59 L 93 L 12/31/19 00:00 36.7 F L 104 H 20 123/60 96 12/30/19 21:24 82 L 12/30/19 20:30 96.7 F L 108 H 20 131/61 92 L - Problem List & Annotations (1) Acute respiratory failure with hypoxia SNOMED Code(s): 31131655, 049204000 Code(s): J96.01 - ACUTE RESPIRATORY FAILURE WITH HYPOXIA Status: Acute Current Visit: Yes (2) Community acquired pneumonia SNOMED Code(s): 620599908 Code(s): J18.9 - PNEUMONIA, UNSPECIFIED ORGANISM Status: Acute Current Visit: Yes (3) UTI (urinary tract infection) SNOMED Code(s): 76020172 Code(s): N39.0 - URINARY TRACT INFECTION, SITE NOT SPECIFIED Status: Acute Current Visit: Yes (4) Altered mental status SNOMED Code(s): 965555292 Code(s): R41.82 - ALTERED MENTAL STATUS, UNSPECIFIED Status: Acute Current Visit: No Onset Date: 04/03/14 (5) Hypothyroidism SNOMED Code(s): 66223142 Code(s): E03.9 - HYPOTHYROIDISM, UNSPECIFIED Status: Acute Current Visit: Yes (6) Intellectual disability SNOMED Code(s): 336951655 Code(s): F79 - UNSPECIFIED INTELLECTUAL DISABILITIES Status: Acute Current Visit: Yes (7) Bipolar 1 disorder SNOMED Code(s): 481315719 Code(s): F31.9 - BIPOLAR DISORDER, UNSPECIFIED Status: Acute Current Visit: Yes (8) Sepsis SNOMED Code(s): 91050228 Code(s): A41.9 - SEPSIS, UNSPECIFIED ORGANISM Status: Acute Current Visit: Yes - Problem List Review Problem List Initiated/Reviewed/Updated: Yes - My Orders Last 24 Hours: My Active Orders 12/30/19 08:09 Sodium Chloride 0.9% [Saline Flush] 2.5 ml FLUSH ASDIRECTED PRN Saline Lock Insert [OM.PC] Routine 12/30/19 08:10 Intake and Output [RC] Q12H 12/30/19 11:20 Echo Comp wo Cont [US] Urgent 01/01/20 05:11 BMP [BASIC METABOLIC PANEL,BMP] [CHEM] AM CBC WITH AUTO DIFF [HEME] AM - Plan Plan:: 66 yo female admitted for sepsis with UTI and suspected pneumonia. 1. Sepsis secondary to UTI and suspected severe CAP - Continue treating with cefepime and azithromycin. - Blood cultures negative x1 day and urine culture reveals E. coli resistant to fluoroquinolones and ampicillin. -Refuses to keep nasal cannula well placed on blow-by oxygen to keep sats greater than 90%. - Unable to meaningfully perform I-S or cough and deep breathe due to intellectual disabilities - Thrombocytopenia noted does have petechial rash on abdomen. Improved today 115,000 from 91,000 -Buckner catheter in for close monitoring of urine output. Consider removing when urine output improves. -Urine appears concentrated today we will give 250 mill bolus did eat breakfast and take pills today hoping oral intake will improve -Repeat Covid negative. 2. Pulmonary edema - Monitor fluid status closely hold off on IV fluids unless needed for hypotension. - ECHO pending -No history of CHF noted. 3. Bipolar/intellectual disability -Continue home medications VTE prophylaxis: Heparin CODE STATUS DNR/DNI Dispo 2 to 3 days We will update Sister Cindy today regarding patient condition.
[2019-12-31] MEDS ORDERED: Sodium Chloride 0.9% 250 ML IV ONE (08:26)
[2019-12-31] MEDS: Sodium Chloride 0.9% 2.5 ML Syringe FLUSH PRN (10:00)
[2019-12-31] MEDS: Polyethylene Glycol 3350 Powder 17 GM Packet PO SCH (10:11)
[2019-12-31] MEDS: Docusate Sodium Liquid 100 MG/10 ML UD Cup PO SCH (10:11)
[2019-12-31] MEDS: ClonazePAM 0.5 MG Tab PO SCH (10:16)
[2019-12-31] MEDS: fluvoxaMINE 50 MG Tab PO SCH (10:18)
[2019-12-31] MEDS: Cholecalciferol (Vitamin D3) 25 MCG Tab PO SCH (10:18)
--- NOTE | 2019-12-31 16:10 | PCM.SN.2 ---
- Free Text/Narrative Note: Echo report received this afternoon. EF reported at 65 to 70%. Moderate RV dilation with moderate RV dysfunction with septal flattening consistent with RV pressure overload right ventricular systolic pressure is mildly elevated at 38.9. Erazo sign is present with preservation of RV apical contractility, per report. Consider pulmonary embolism. Results discussed with Dr. Rajput, CTA of the chest ordered. Multiple attempts to call Sister Cindy to obtain consent for contrast CT of chest. Nursing will continue to attempt to contact her regarding consent. Patient remains on blow-by oxygen satting 91 to 92%. Blood pressure stable heart rate mildly tachycardic low 100s.
[2019-12-31] MEDS ORDERED: Iopamidol 755 MG/ML 500 ML Multipack Bottle IVPUSH STA (16:54)
--- NOTE | 2019-12-31 17:26 | CT ---
Indication: Hypoxia Technique: Volumetric multidetector CT images of the chest were obtained after the administration of IV contrast. 75 cc Isovue 370 Comparison: None available. Findings: The thoracic inlet and thyroid gland are unremarkable. The thoracic aorta is non aneurysmal with minimal scattered atherosclerotic calcifications. There is no central filling defect to suggest pulmonary embolism. There is no mediastinal, hilar or axillary adenopathy. There is mild thickening of the central bronchi. There are trace right greater than left basilar pleural effusions with adjacent compressive atelectasis versus infiltrates. There is no evidence of pulmonary mass or suspicious pulmonary nodule. The partially visualized upper abdominal viscera are within normal limits. The thoracic vertebral body heights are grossly maintained with mild dextroscoliotic deformity of the AP alignment. The sagittal alignment is grossly preserved. Impression: Central bronchial thickening with right greater than left basilar pleural effusions with adjacent compressive atelectasis versus infiltrates. Otherwise, no evidence of pulmonary embolus is appreciated. Please note that all CT scans at this facility use dose modulation, iterative reconstruction, and/or weight-based dosing when appropriate to reduce radiation dose to as low as reasonably achievable. Dictated by Bill Holt MD @ Dec 31 2019 5:10PM Signed by Dr. Bill Holt @ Dec 31 2019 5:24PM
[2020-01-01] MEDS: Heparin Sodium 5,000 Units/ML Vial SUBCUT SCH ×5 (00:03→23:07)
[2020-01-01] MEDS: Azithromycin 500 MG in Sodium Chloride 0.9% 250 ML IV SCH ×2 (00:03→23:31)
[2020-01-01] MEDS: Polyethylene Glycol 3350 Powder 17 GM Packet PO SCH ×3 (00:32→21:10)
[2020-01-01] MEDS: ClonazePAM 0.5 MG Tab PO SCH ×3 (00:32→21:10)
[2020-01-01] MEDS: fluvoxaMINE 50 MG Tab PO SCH ×3 (00:32→21:12)
[2020-01-01] MEDS: traZODone 50 MG Tab PO SCH ×2 (00:33→21:11)
[2020-01-01] MEDS: Cefepime 1 GM in Premix Bag 1 BAG IV SCH ×3 (01:17→17:47)
[2020-01-01 06:43] LABS: BLOOD UREA NITROGEN,BUN 23 mg/dL (7.0-18.0); CHLORIDE,CL 112 mmol/L (98-107); GLUCOSE RANDOM 79 mg/dL (74-106); POTASSIUM,K 3.6 mmol/L (3.5-5.1); SODIUM,NA 146 mmol/L (136-145)
[2020-01-01] MEDS: Docusate Sodium Liquid 100 MG/10 ML UD Cup PO SCH (11:13)
--- NOTE | 2020-01-01 11:49 | PCM.PN ---
- General Info Date of Service: 01/01/20 - Review of Systems Systems Review Comment:: more alert today, nonverbal - Patient Data Vitals - Most Recent: Last Vital Signs Temp 36.2 C 01/01/20 09:00 Pulse 88 01/01/20 09:00 Resp 18 01/01/20 09:00 BP 109/61 01/01/20 09:00 Pulse Ox 93 L 01/01/20 09:00 Weight - Most Recent: 55.338 kg I&O - Last 24 Hours: Intake & Output 12/31/19 01/01/20 01/01/20 22:59 06:59 14:59 Intake Total 180 Output Total 300 200 Balance -120 -200 Lab Results Last 24 Hours: Laboratory Results - last 24 hr 01/01/20 01/01/20 Range/Units 05:35 05:35 WBC 6.41 (4.0-11.0) K/uL RBC 3.59 L (4.30-5.90) M/uL Hgb 11.2 L (12.0-16.0) g/dL Hct 35.2 L (36.0-46.0) % MCV 98.1 H (80.0-98.0) fL MCH 31.2 (27.0-32.0) pg MCHC 31.8 (31.0-37.0) g/dL RDW Std Deviation 45.8 (28.0-62.0) fl RDW Coeff of John 13 (11.0-15.0) % Plt Count 144 L (150-400) K/uL MPV 10.40 (7.40-12.00) fL Neut % (Auto) 66.6 (48.0-80.0) % Lymph % (Auto) 21.4 (16.0-40.0) % [place] % (Auto) 6.1 (0.0-15.0) % Eos % (Auto) 5.0 (0.0-7.0) % Baso % (Auto) 0.9 (0.0-1.5) % Neut # (Auto) 4.3 (1.4-5.7) K/uL Lymph # (Auto) 1.4 (0.6-2.4) K/uL [place] # (Auto) 0.4 (0.0-0.8) K/uL Eos # (Auto) 0.3 (0.0-0.7) K/uL Baso # (Auto) 0.1 (0.0-0.1) K/uL Nucleated RBC % 0.0 /100WBC Nucleated RBCs # 0 K/uL Sodium 146 H (136-145) mmol/L Potassium 3.6 (3.5-5.1) mmol/L Chloride 112 H (98-107) mmol/L Carbon Dioxide 24.0 (21.0-32.0) mmol/L BUN 23 H (7.0-18.0) mg/dL Creatinine 0.6 (0.6-1.0) mg/dL Est Cr Clr Drug Dosing TNP Estimated GFR (MDRD) > 60.0 ml/min Glucose 79 (74-106) mg/dL Calcium 8.6 (8.5-10.1) mg/dL Tj Results Last 24 Hours: Microbiology 12/29/19 17:06 Aerobic Blood Culture - Preliminary Blood - Venous - Lab Draw NO GROWTH AFTER 2 DAYS Anaerobic Blood Culture - Preliminary NO GROWTH AFTER 2 DAYS 12/29/19 17:01 Aerobic Blood Culture - Preliminary Blood - Venous NO GROWTH AFTER 2 DAYS Anaerobic Blood Culture - Final 12/29/19 18:44 Urine Culture - Final Urine, Clean Catch Escherichia Coli Normal Urogenital Daina Med Orders - Current: Current Medications Acetaminophen (Tylenol) 650 mg PO Q4HR PRN PRN Reason: Pain Bisacodyl (Dulcolax) 10 mg RECTAL Q3D PRN PRN Reason: Constipation Cholecalciferol (Vitamin D3) 25 mcg PO DAILY [facility] Last Admin: 12/31/19 10:18 Dose: 25 mcg Documented by: Clonazepam (Klonopin) 0.5 mg PO BID [facility] Last Admin: 01/01/20 00:32 Dose: Not Given Documented by: Docusate Sodium (Colace 50 Mg/5 Ml Liquid) 100 mg PO DAILY [facility] Last Admin: 01/01/20 11:13 Dose: 100 mg Documented by: Fluvoxamine Maleate (Fluvoxamine) 50 mg PO BID [facility] Last Admin: 01/01/20 00:32 Dose: Not Given Documented by: Heparin Sodium (Porcine) (Heparin Sodium) 5,000 units SUBCUT Q8H [facility] Last Admin: 01/01/20 00:33 Dose: Not Given Documented by: Azithromycin 500 mg/ Sodium (Chloride) 250 mls @ 250 mls/hr IV Q24H [facility] Last Admin: 01/01/20 00:03 Dose: 250 mls/hr Documented by: Cefepime HCl 1 gm/ Premix 50 mls @ 100 mls/hr IV Q8H [facility] Last Admin: 01/01/20 11:07 Dose: 100 mls/hr Documented by: Polyethylene Glycol (Miralax) 17 gm PO BID [facility] Last Admin: 01/01/20 11:12 Dose: 17 gm Documented by: Sodium Chloride (Saline Flush) 2.5 ml FLUSH ASDIRECTED PRN PRN Reason: Keep Vein Open Last Admin: 12/31/19 10:00 Dose: 2.5 ml Documented by: Trazodone HCl (Trazodone) 25 mg PO BEDTIME [facility] Last Admin: 01/01/20 00:33 Dose: Not Given Documented by: Discontinued Medications Azithromycin (Zithromax) 500 mg IV Q24H [facility] Docusate Sodium (Colace) 100 mg PO DAILY [facility] Sodium Chloride (Normal Saline) 1,000 mls @ 999 mls/hr IV .Bolus ONE Stop: 12/29/19 17:20 Last Admin: 12/29/19 16:43 Dose: 999 mls/hr Documented by: Cefepime HCl 2 gm/ Premix 50 mls @ 100 mls/hr IV ONETIME ONE Stop: 12/29/19 17:39 Last Admin: 12/29/19 18:32 Dose: 100 mls/hr Documented by: Sodium Chloride (Normal Saline) 1,000 mls @ 100 mls/hr IV Q10H [facility] Sodium Chloride (Sodium Chloride 0.45%) 1,000 mls @ 100 mls/hr IV Q10H [facility] Last Admin: 12/30/19 09:12 Dose: 100 mls/hr Documented by: Sodium Chloride (Normal Saline) 250 mls @ 999 mls/hr IV BOLUS [facility] Stop: 12/30/19 13:16 Last Admin: 12/30/19 13:08 Dose: 999 mls/hr Documented by: Sodium Chloride (Normal Saline) 250 mls @ 999 mls/hr IV ONETIME ONE Stop: 12/31/19 08:41 Last Admin: 12/31/19 08:28 Dose: 999 mls/hr Documented by: Iopamidol (Isovue Multipack-370 (76%)) 100 ml IVPUSH ONETIME [facility] Stop: 12/31/19 16:55 Last Admin: 12/31/19 17:00 Dose: 75 ml Documented by: Sodium Chloride (Saline Flush) 10 ml FLUSH ASDIRECTED PRN PRN Reason: Keep Vein Open Last Admin: 12/29/19 16:44 Dose: 10 ml Documented by: Sodium Chloride (Saline Flush) 2.5 ml FLUSH ASDIRECTED PRN PRN Reason: Keep Vein Open Last Admin: 12/29/19 16:44 Dose: 2.5 ml Documented by: - Exam General: Cooperative, No Acute Distress Neck: Supple Lungs: Clear to Auscultation, Normal Respiratory Effort Cardiovascular: Regular Rate, Regular Rhythm GI/Abdominal Exam: Soft, Non-Tender, No Distention Extremities: Non-Tender, No Pedal Edema Skin: Warm, Dry, Intact Neurological: No New Focal Deficit Sepsis Event Note - Evaluation Sepsis Screening Result: No Definite Risk - Focused Exam Vital Signs: Vital Signs Temp Pulse Resp BP Pulse Ox Pulse Ox 01/01/20 09:00 36.2 C 88 18 109/61 93 L 93 L 01/01/20 04:00 72 18 117/56 L 90 L 01/01/20 01:19 94 20 122/69 89 L 01/01/20 00:00 36.3 C 96 20 86 L - Problem List Review Problem List Initiated/Reviewed/Updated: Yes - My Orders Last 24 Hours: My Active Orders 01/02/20 05:11 CBC WITH AUTO DIFF [HEME] AM COMPREHENSIVE METABOLIC PN,CMP [CHEM] AM - Plan Plan:: 66 yo female admitted for sepsis with UTI and suspected pneumonia. 1. Sepsis secondary to [place] UTI and suspected severe CAP - Continue treating with cefepime and azithromycin. - Refuses to keep nasal cannula well placed on blow-by oxygen to keep sats greater than 90%. - CT chest reports bronchial thickening with bibasilar pleural effusion with associated infiltrates - Echo: high RV pressures, EF 60% - Buckner catheter in for close monitoring of urine output. Consider removing when urine output improves. 3. Bipolar/intellectual disability -Continue home medications VTE prophylaxis: Heparin CODE STATUS DNR/DNI Dispo 2 to 3 days We will update Sister Cindy today regarding patient condition.
[2020-01-01] MEDS: Cholecalciferol (Vitamin D3) 25 MCG Tab PO SCH (11:57)
[2020-01-01] MEDS: Acetaminophen 325 MG Tab PO PRN (17:48)
[2020-01-02] MEDS: Cefepime 1 GM in Premix Bag 1 BAG IV SCH ×3 (00:43→17:07)
[2020-01-02 06:52] LABS: BLOOD UREA NITROGEN,BUN 23 mg/dL (7.0-18.0); CARBON DIOXIDE,CO2 25.9 mmol/L (21.0-32.0); CHLORIDE,CL 114 mmol/L (98-107); GLUCOSE RANDOM 97 mg/dL (74-106); POTASSIUM,K 3.5 mmol/L (3.5-5.1); SODIUM,NA 148 mmol/L (136-145)
[2020-01-02] MEDS: Heparin Sodium 5,000 Units/ML Vial SUBCUT SCH ×3 (09:39→23:38)
[2020-01-02] MEDS: Docusate Sodium Liquid 100 MG/10 ML UD Cup PO SCH (09:46)
[2020-01-02] MEDS: ClonazePAM 0.5 MG Tab PO SCH ×2 (09:47→20:12)
[2020-01-02] MEDS: Cholecalciferol (Vitamin D3) 25 MCG Tab PO SCH ×3 (09:47→13:03)
[2020-01-02] MEDS: fluvoxaMINE 50 MG Tab PO SCH ×4 (09:48→20:12)
[2020-01-02] MEDS: Polyethylene Glycol 3350 Powder 17 GM Packet PO SCH ×2 (11:46→20:18)
--- NOTE | 2020-01-02 11:48 | PCM.PN ---
- General Info Date of Service: 01/02/20 - Review of Systems Systems Review Comment:: more awake today, denies any pain - Patient Data Vitals - Most Recent: Last Vital Signs Temp 37.1 C 01/02/20 09:00 Pulse 75 01/02/20 09:00 Resp 16 01/02/20 09:00 BP 128/58 L 01/02/20 09:00 Pulse Ox 93 L 01/02/20 09:00 Weight - Most Recent: 55.338 kg I&O - Last 24 Hours: Intake & Output 01/01/20 01/02/20 01/02/20 22:59 06:59 14:59 Intake Total 450 350 Output Total 225 250 Balance 225 100 Lab Results Last 24 Hours: Laboratory Results - last 24 hr 01/02/20 01/02/20 Range/Units 05:30 05:30 WBC 6.23 (4.0-11.0) K/uL RBC 3.42 L (4.30-5.90) M/uL Hgb 10.8 L (12.0-16.0) g/dL Hct 33.5 L (36.0-46.0) % MCV 98.0 (80.0-98.0) fL MCH 31.6 (27.0-32.0) pg MCHC 32.2 (31.0-37.0) g/dL RDW Std Deviation 45.7 (28.0-62.0) fl RDW Coeff of John 13 (11.0-15.0) % Plt Count 165 (150-400) K/uL MPV 10.50 (7.40-12.00) fL Neut % (Auto) 65.6 (48.0-80.0) % Lymph % (Auto) 21.8 (16.0-40.0) % [place] % (Auto) 5.5 (0.0-15.0) % Eos % (Auto) 6.6 (0.0-7.0) % Baso % (Auto) 0.5 (0.0-1.5) % Neut # (Auto) 4.1 (1.4-5.7) K/uL Lymph # (Auto) 1.4 (0.6-2.4) K/uL [place] # (Auto) 0.3 (0.0-0.8) K/uL Eos # (Auto) 0.4 (0.0-0.7) K/uL Baso # (Auto) 0.0 (0.0-0.1) K/uL Nucleated RBC % 0.0 /100WBC Nucleated RBCs # 0 K/uL Sodium 148 H (136-145) mmol/L Potassium 3.5 (3.5-5.1) mmol/L Chloride 114 H (98-107) mmol/L Carbon Dioxide 25.9 (21.0-32.0) mmol/L BUN 23 H (7.0-18.0) mg/dL Creatinine 0.6 (0.6-1.0) mg/dL Est Cr Clr Drug Dosing TNP Estimated GFR (MDRD) > 60.0 ml/min Glucose 97 (74-106) mg/dL Calcium 8.8 (8.5-10.1) mg/dL Total Bilirubin 0.7 (0.2-1.0) mg/dL AST 29 (15-37) IU/L ALT 33 (14-63) IU/L Alkaline Phosphatase 54 (46-116) U/L Total Protein 6.2 L (6.4-8.2) g/dL Albumin 2.6 L (3.4-5.0) g/dL Globulin 3.6 (2.6-4.0) g/dL Albumin/Globulin Ratio 0.7 L (0.9-1.6) Tj Results Last 24 Hours: Microbiology 12/29/19 17:06 Aerobic Blood Culture - Preliminary Blood - Venous - Lab Draw NO GROWTH AFTER 3 DAYS Anaerobic Blood Culture - Preliminary NO GROWTH AFTER 3 DAYS 12/29/19 17:01 Aerobic Blood Culture - Preliminary Blood - Venous NO GROWTH AFTER 3 DAYS Anaerobic Blood Culture - Final Med Orders - Current: Current Medications Acetaminophen (Tylenol) 650 mg PO Q4HR PRN PRN Reason: Pain Last Admin: 01/01/20 17:48 Dose: 650 mg Documented by: Bisacodyl (Dulcolax) 10 mg RECTAL Q3D PRN PRN Reason: Constipation Cholecalciferol (Vitamin D3) 25 mcg PO DAILY [facility] Last Admin: 01/02/20 11:47 Dose: Not Given Documented by: Clonazepam (Klonopin) 0.5 mg PO BID [facility] Last Admin: 01/02/20 09:47 Dose: 0.5 mg Documented by: Docusate Sodium (Colace 50 Mg/5 Ml Liquid) 100 mg PO DAILY [facility] Last Admin: 01/02/20 09:46 Dose: 100 mg Documented by: Fluvoxamine Maleate (Fluvoxamine) 50 mg PO BID [facility] Last Admin: 01/02/20 11:47 Dose: Not Given Documented by: Heparin Sodium (Porcine) (Heparin Sodium) 5,000 units SUBCUT Q8H [facility] Last Admin: 01/02/20 09:39 Dose: 5,000 units Documented by: Azithromycin 500 mg/ Sodium (Chloride) 250 mls @ 250 mls/hr IV Q24H [facility] Last Admin: 01/01/20 23:31 Dose: 250 mls/hr Documented by: Cefepime HCl 1 gm/ Premix 50 mls @ 100 mls/hr IV Q8H [facility] Last Admin: 01/02/20 09:39 Dose: 100 mls/hr Documented by: Polyethylene Glycol (Miralax) 17 gm PO BID [facility] Last Admin: 01/02/20 11:46 Dose: Not Given Documented by: Sodium Chloride (Saline Flush) 2.5 ml FLUSH ASDIRECTED PRN PRN Reason: Keep Vein Open Last Admin: 12/31/19 10:00 Dose: 2.5 ml Documented by: Trazodone HCl (Trazodone) 25 mg PO BEDTIME [facility] Last Admin: 01/01/20 21:11 Dose: 25 mg Documented by: Discontinued Medications Azithromycin (Zithromax) 500 mg IV Q24H [facility] Docusate Sodium (Colace) 100 mg PO DAILY [facility] Sodium Chloride (Normal Saline) 1,000 mls @ 999 mls/hr IV .Bolus ONE Stop: 12/29/19 17:20 Last Admin: 12/29/19 16:43 Dose: 999 mls/hr Documented by: Cefepime HCl 2 gm/ Premix 50 mls @ 100 mls/hr IV ONETIME ONE Stop: 12/29/19 17:39 Last Admin: 12/29/19 18:32 Dose: 100 mls/hr Documented by: Sodium Chloride (Normal Saline) 1,000 mls @ 100 mls/hr IV Q10H [facility] Sodium Chloride (Sodium Chloride 0.45%) 1,000 mls @ 100 mls/hr IV Q10H [facility] Last Admin: 12/30/19 09:12 Dose: 100 mls/hr Documented by: Sodium Chloride (Normal Saline) 250 mls @ 999 mls/hr IV BOLUS [facility]RE[facility] Stop: 12/30/19 13:16 Last Admin: 12/30/19 13:08 Dose: 999 mls/hr Documented by: Sodium Chloride (Normal Saline) 250 mls @ 999 mls/hr IV ONETIME ONE Stop: 12/31/19 08:41 Last Admin: 12/31/19 08:28 Dose: 999 mls/hr Documented by: Iopamidol (Isovue Multipack-370 (76%)) 100 ml IVPUSH ONETIME STA Stop: 12/31/19 16:55 Last Admin: 12/31/19 17:00 Dose: 75 ml Documented by: Sodium Chloride (Saline Flush) 10 ml FLUSH ASDIRECTED PRN PRN Reason: Keep Vein Open Last Admin: 12/29/19 16:44 Dose: 10 ml Documented by: Sodium Chloride (Saline Flush) 2.5 ml FLUSH ASDIRECTED PRN PRN Reason: Keep Vein Open Last Admin: 12/29/19 16:44 Dose: 2.5 ml Documented by: - Exam General: Cooperative, No Acute Distress Lungs: Normal Respiratory Effort, Decreased Breath Sounds Cardiovascular: Regular Rate, Regular Rhythm Extremities: Non-Tender, No Pedal Edema Skin: Warm, Dry, Intact Neurological: No New Focal Deficit Sepsis Event Note - Evaluation Sepsis Screening Result: Sepsis Risk - Focused Exam Vital Signs: Vital Signs Temp Pulse Resp BP Pulse Ox Pulse Ox 01/02/20 09:00 37.1 C 75 16 128/58 L 93 L 93 L 01/02/20 03:53 19 95 01/02/20 03:50 37 C 85 19 117/58 L 89 L 01/02/20 00:34 37.2 C 73 18 128/69 97 - Problem List Review Problem List Initiated/Reviewed/Updated: Yes - My Orders Last 24 Hours: My Active Orders 01/03/20 05:11 BASIC METABOLIC PANEL,BMP [CHEM] AM CBC WITH AUTO DIFF [HEME] AM - Plan Plan:: 66 yo female admitted for sepsis with UTI and suspected pneumonia. 1. Sepsis secondary to [place] UTI and suspected severe CAP - Continue treating with cefepime and azithromycin. - Refuses to keep nasal cannula well placed on blow-by oxygen to keep sats greater than 90%. - CT chest reports bronchial thickening with bibasilar pleural effusion with associated infiltrates - Echo: high RV pressures, EF 60% - Buckner catheter in for close monitoring of urine output. Consider removing when urine output improves. 3. Bipolar/intellectual disability -Continue home medications VTE prophylaxis: Heparin CODE STATUS DNR/DNI
[2020-01-02] MEDS: Acetaminophen 325 MG Tab PO PRN (18:34)
[2020-01-02] MEDS: traZODone 50 MG Tab PO SCH (20:12)
[2020-01-02] MEDS: Azithromycin 500 MG in Sodium Chloride 0.9% 250 ML IV SCH (23:35)
[2020-01-03] MEDS: Cefepime 1 GM in Premix Bag 1 BAG IV SCH ×3 (00:41→16:30)
[2020-01-03 06:11] LABS: BLOOD UREA NITROGEN,BUN 19 mg/dL (7.0-18.0); CARBON DIOXIDE,CO2 27.2 mmol/L (21.0-32.0); CHLORIDE,CL 111 mmol/L (98-107); GLUCOSE RANDOM 102 mg/dL (74-106); POTASSIUM,K 3.6 mmol/L (3.5-5.1); SODIUM,NA 147 mmol/L (136-145)
[2020-01-03] MEDS: Heparin Sodium 5,000 Units/ML Vial SUBCUT SCH ×2 (08:55→16:29)
[2020-01-03] MEDS: Cholecalciferol (Vitamin D3) 25 MCG Tab PO SCH (09:49)
[2020-01-03] MEDS: Docusate Sodium Liquid 100 MG/10 ML UD Cup PO SCH (09:50)
[2020-01-03] MEDS: ClonazePAM 0.5 MG Tab PO SCH ×3 (09:50→22:22)
[2020-01-03] MEDS: fluvoxaMINE 50 MG Tab PO SCH ×3 (09:50→22:21)
--- NOTE | 2020-01-03 09:57 | ECHO ---
EXAM DATE: 12/29/19 PATIENT'S AGE: 64 The ECHO report has been scanned into [employer] and can be seen in this patient's EMR (Electronic Medical Record) under the REPORTS section. The report has also been scanned into PACS. [employer]
[2020-01-03] MEDS: Polyethylene Glycol 3350 Powder 17 GM Packet PO SCH ×2 (09:58→22:10)
[2020-01-03] MEDS ORDERED: Sodium Chloride 0.45% 500 ML IV SCH (11:15)
--- NOTE | 2020-01-03 15:06 | PCM.PN ---
- General Info Date of Service: 01/03/20 Admission Dx/Problem (Free Text): Admission Diagnosis/Problem Admission Diagnosis/Problem UTI, Urinary tract infectious disease Subjective Update: Nonverbal this morning. Denies any pain - Patient Data Vitals - Most Recent: Last Vital Signs Temp 98.2 F 01/03/20 11:42 Pulse 89 01/03/20 11:42 Resp 16 01/03/20 11:42 BP 105/59 L 01/03/20 11:42 Pulse Ox 97 01/03/20 11:42 Weight - Most Recent: 55.338 kg I&O - Last 24 Hours: Intake & Output 01/03/20 01/03/20 01/03/20 06:59 14:59 22:59 Intake Total 240 Output Total 250 Balance -10 Lab Results Last 24 Hours: Laboratory Results - last 24 hr 01/03/20 01/03/20 Range/Units 05:20 05:20 WBC 6.59 (4.0-11.0) K/uL RBC 3.43 L (4.30-5.90) M/uL Hgb 10.9 L (12.0-16.0) g/dL Hct 33.7 L (36.0-46.0) % MCV 98.3 H (80.0-98.0) fL MCH 31.8 (27.0-32.0) pg MCHC 32.3 (31.0-37.0) g/dL RDW Std Deviation 45.8 (28.0-62.0) fl RDW Coeff of John 13 (11.0-15.0) % Plt Count 197 (150-400) K/uL MPV 10.10 (7.40-12.00) fL Neut % (Auto) 63.3 (48.0-80.0) % Lymph % (Auto) 23.4 (16.0-40.0) % [place] % (Auto) 5.9 (0.0-15.0) % Eos % (Auto) 7.1 H (0.0-7.0) % Baso % (Auto) 0.3 (0.0-1.5) % Neut # (Auto) 4.2 (1.4-5.7) K/uL Lymph # (Auto) 1.5 (0.6-2.4) K/uL [place] # (Auto) 0.4 (0.0-0.8) K/uL Eos # (Auto) 0.5 (0.0-0.7) K/uL Baso # (Auto) 0.0 (0.0-0.1) K/uL Nucleated RBC % 0.0 /100WBC Nucleated RBCs # 0 K/uL Sodium 147 H (136-145) mmol/L Potassium 3.6 (3.5-5.1) mmol/L Chloride 111 H (98-107) mmol/L Carbon Dioxide 27.2 (21.0-32.0) mmol/L BUN 19 H (7.0-18.0) mg/dL Creatinine 0.6 (0.6-1.0) mg/dL Est Cr Clr Drug Dosing TNP Estimated GFR (MDRD) > 60.0 ml/min Glucose 102 (74-106) mg/dL Calcium 8.9 (8.5-10.1) mg/dL Tj Results Last 24 Hours: Microbiology 12/29/19 17:06 Aerobic Blood Culture - Preliminary Blood - Venous - Lab Draw NO GROWTH AFTER 4 DAYS Anaerobic Blood Culture - Preliminary NO GROWTH AFTER 4 DAYS 12/29/19 17:01 Aerobic Blood Culture - Preliminary Blood - Venous NO GROWTH AFTER 4 DAYS Anaerobic Blood Culture - Final Med Orders - Current: Current Medications Acetaminophen (Tylenol) 650 mg PO Q4HR PRN PRN Reason: Pain Last Admin: 01/02/20 18:34 Dose: 650 mg Documented by: Bisacodyl (Dulcolax) 10 mg RECTAL Q3D PRN PRN Reason: Constipation Cholecalciferol (Vitamin D3) 25 mcg PO DAILY [facility] Last Admin: 01/03/20 09:49 Dose: 25 mcg Documented by: Clonazepam (Klonopin) 0.5 mg PO BID [facility] Last Admin: 01/03/20 09:50 Dose: 0.5 mg Documented by: Docusate Sodium (Colace 50 Mg/5 Ml Liquid) 100 mg PO DAILY [facility] Last Admin: 01/03/20 09:50 Dose: Not Given Documented by: Fluvoxamine Maleate (Fluvoxamine) 50 mg PO BID [facility] Last Admin: 01/03/20 09:50 Dose: 50 mg Documented by: Heparin Sodium (Porcine) (Heparin Sodium) 5,000 units SUBCUT Q8H [facility] Last Admin: 01/03/20 08:55 Dose: 5,000 units Documented by: Azithromycin 500 mg/ Sodium (Chloride) 250 mls @ 250 mls/hr IV Q24H [facility] Last Admin: 01/02/20 23:35 Dose: 250 mls/hr Documented by: Cefepime HCl 1 gm/ Premix 50 mls @ 100 mls/hr IV Q8H [facility] Last Admin: 01/03/20 08:55 Dose: 100 mls/hr Documented by: Sodium Chloride (Sodium Chloride 0.45%) 500 mls @ 100 mls/hr IV Q10H [facility] Stop: 01/03/20 16:14 Last Admin: 01/03/20 11:52 Dose: 100 mls/hr Documented by: Polyethylene Glycol (Miralax) 17 gm PO BID [facility] Last Admin: 01/03/20 09:58 Dose: Not Given Documented by: Sodium Chloride (Saline Flush) 2.5 ml FLUSH ASDIRECTED PRN PRN Reason: Keep Vein Open Last Admin: 12/31/19 10:00 Dose: 2.5 ml Documented by: Trazodone HCl (Trazodone) 25 mg PO BEDTIME [facility] Last Admin: 01/02/20 20:12 Dose: 25 mg Documented by: Discontinued Medications Azithromycin (Zithromax) 500 mg IV Q24H [facility] Docusate Sodium (Colace) 100 mg PO DAILY [facility] Sodium Chloride (Normal Saline) 1,000 mls @ 999 mls/hr IV .Bolus ONE Stop: 12/29/19 17:20 Last Admin: 12/29/19 16:43 Dose: 999 mls/hr Documented by: Cefepime HCl 2 gm/ Premix 50 mls @ 100 mls/hr IV ONETIME ONE Stop: 12/29/19 17:39 Last Admin: 12/29/19 18:32 Dose: 100 mls/hr Documented by: Sodium Chloride (Normal Saline) 1,000 mls @ 100 mls/hr IV Q10H [facility] Sodium Chloride (Sodium Chloride 0.45%) 1,000 mls @ 100 mls/hr IV Q10H [facility] Last Admin: 12/30/19 09:12 Dose: 100 mls/hr Documented by: Sodium Chloride (Normal Saline) 250 mls @ 999 mls/hr IV BOLUS [facility]RE[facility] Stop: 12/30/19 13:16 Last Admin: 12/30/19 13:08 Dose: 999 mls/hr Documented by: Sodium Chloride (Normal Saline) 250 mls @ 999 mls/hr IV ONETIME ONE Stop: 12/31/19 08:41 Last Admin: 12/31/19 08:28 Dose: 999 mls/hr Documented by: Iopamidol (Isovue Multipack-370 (76%)) 100 ml IVPUSH ONETIME STA Stop: 12/31/19 16:55 Last Admin: 12/31/19 17:00 Dose: 75 ml Documented by: Sodium Chloride (Saline Flush) 10 ml FLUSH ASDIRECTED PRN PRN Reason: Keep Vein Open Last Admin: 12/29/19 16:44 Dose: 10 ml Documented by: Sodium Chloride (Saline Flush) 2.5 ml FLUSH ASDIRECTED PRN PRN Reason: Keep Vein Open Last Admin: 12/29/19 16:44 Dose: 2.5 ml Documented by: - Exam General: Alert, Cooperative, No Acute Distress. No: Oriented HEENT: Pupils Equal, Pupils Reactive Neck: Supple Lungs: Clear to Auscultation, Normal Respiratory Effort. No: Crackles Cardiovascular: Regular Rate, Regular Rhythm GI/Abdominal Exam: Normal Bowel Sounds, Soft, Non-Tender Back Exam: Normal Inspection, Full Range of Motion Extremities: Normal Inspection, Normal Range of Motion, Non-Tender, No Pedal Edema Neurological: No New Focal Deficit Psy/Mental Status: Alert, Normal Affect, Normal Mood Sepsis Event Note - Evaluation Sepsis Screening Result: No Definite Risk - Focused Exam Vital Signs: Vital Signs Temp Pulse Resp BP Pulse Ox Pulse Ox 01/03/20 11:42 98.2 F 89 16 105/59 L 97 01/03/20 10:00 93 L 01/03/20 09:00 98.4 F 89 18 123/59 L 92 L 01/03/20 03:33 96 F L 74 20 108/50 L 96 - Problem List & Annotations (1) Acute respiratory failure with hypoxia SNOMED Code(s): 29963919, 452722204 Code(s): J96.01 - ACUTE RESPIRATORY FAILURE WITH HYPOXIA Status: Acute Current Visit: Yes (2) Community acquired pneumonia SNOMED Code(s): 471842946 Code(s): J18.9 - PNEUMONIA, UNSPECIFIED ORGANISM Status: Acute Current Visit: Yes (3) UTI (urinary tract infection) SNOMED Code(s): 89052908 Code(s): N39.0 - URINARY TRACT INFECTION, SITE NOT SPECIFIED Status: Acute Current Visit: Yes (4) Altered mental status SNOMED Code(s): 734477776 Code(s): R41.82 - ALTERED MENTAL STATUS, UNSPECIFIED Status: Acute Current Visit: No Onset Date: 04/03/14 (5) Hypothyroidism SNOMED Code(s): 83727385 Code(s): E03.9 - HYPOTHYROIDISM, UNSPECIFIED Status: Acute Current Visit: Yes (6) Intellectual disability SNOMED Code(s): 727773680 Code(s): F79 - UNSPECIFIED INTELLECTUAL DISABILITIES Status: Acute Current Visit: Yes (7) Bipolar 1 disorder SNOMED Code(s): 925822326 Code(s): F31.9 - BIPOLAR DISORDER, UNSPECIFIED Status: Acute Current Visit: Yes (8) Sepsis SNOMED Code(s): 56202197 Code(s): A41.9 - SEPSIS, UNSPECIFIED ORGANISM Status: Acute Current Visit: Yes - Problem List Review Problem List Initiated/Reviewed/Updated: Yes - My Orders Last 24 Hours: My Active Orders 01/03/20 11:15 Sodium Chloride 0.45% 500 ml IV Q10H 01/03/20 18:00 BASIC METABOLIC PANEL,BMP [CHEM] Routine - Plan Plan:: 66 yo female admitted for sepsis with UTI and suspected pneumonia. 1. Suspected severe CAP -Sepsis resolved - Continue treating with cefepime and azithromycin. - Refuses to keep nasal cannula well placed on blow-by oxygen to keep sats greater than 90%. - Attempted to wean off blow-by oxygen this morning but sats dropped to 83% on room air. - CT chest reports bronchial thickening with bibasilar pleural effusion with associated infiltrates - Echo: high RV pressures, EF 60% -We will speak with family regarding chronic needs for oxygen. Does have some right-sided heart failure. May need oxygen going back to [place] but patient is unwilling to keep on. 2. E.coli UTI -Continue cefepime -Buckner remains in place due to low urine output. -Consider removing in a.m. 3. Hypernatremia -May be due to poor fluid intake. -We will give half NS 500 mils over the next few hours - recheck sodium this evening 4. Bipolar/intellectual disability -Continue home medications VTE prophylaxis: Heparin CODE STATUS DNR/DNI Dispo: 2 days, return to [facility] facility when medically stable.
[2020-01-03 18:36] LABS: BLOOD UREA NITROGEN,BUN 18 mg/dL (7.0-18.0); CARBON DIOXIDE,CO2 26.8 mmol/L (21.0-32.0); CHLORIDE,CL 107 mmol/L (98-107); GLUCOSE RANDOM 93 mg/dL (74-106); POTASSIUM,K 4.1 mmol/L (3.5-5.1); SODIUM,NA 141 mmol/L (136-145)
[2020-01-03] MEDS: traZODone 50 MG Tab PO SCH ×2 (22:09→22:22)
[2020-01-03] MEDS: Sodium Chloride 0.9% 2.5 ML Syringe FLUSH PRN (22:24)
[2020-01-03] MEDS: Azithromycin 500 MG in Sodium Chloride 0.9% 250 ML IV SCH (22:50)
[2020-01-04] MEDS: Heparin Sodium 5,000 Units/ML Vial SUBCUT SCH ×3 (00:03→15:13)
[2020-01-04] MEDS: Cefepime 1 GM in Premix Bag 1 BAG IV SCH ×3 (00:03→16:34)
[2020-01-04 05:52] LABS: BLOOD UREA NITROGEN,BUN 18 mg/dL (7.0-18.0); CARBON DIOXIDE,CO2 27.5 mmol/L (21.0-32.0); CHLORIDE,CL 108 mmol/L (98-107); GLUCOSE RANDOM 91 mg/dL (74-106); POTASSIUM,K 3.6 mmol/L (3.5-5.1); SODIUM,NA 144 mmol/L (136-145)
[2020-01-04] MEDS: Polyethylene Glycol 3350 Powder 17 GM Packet PO SCH ×2 (09:00→20:58)
[2020-01-04] MEDS: ClonazePAM 0.5 MG Tab PO SCH ×3 (09:00→20:58)
[2020-01-04] MEDS: Docusate Sodium Liquid 100 MG/10 ML UD Cup PO SCH (09:00)
[2020-01-04] MEDS: Cholecalciferol (Vitamin D3) 25 MCG Tab PO SCH ×2 (09:00→09:06)
[2020-01-04] MEDS: fluvoxaMINE 50 MG Tab PO SCH ×3 (09:00→20:58)
[2020-01-04] MEDS ORDERED: Furosemide 40 MG/4 ML VIAL IVPUSH ONE (10:40)
--- NOTE | 2020-01-04 12:01 | PCM.PN ---
- General Info Date of Service: 01/04/20 Admission Dx/Problem (Free Text): Admission Diagnosis/Problem Admission Diagnosis/Problem UTI, Urinary tract infectious disease Subjective Update: Doing well this morning. Nonverbal. No complaints of pain, shakes her head no when asked. Functional Status: Reports: Pain Controlled, Tolerating Diet (Not eating much but does have times of eating good amounts with nursing helping her.) - Patient Data Vitals - Most Recent: Last Vital Signs Temp 97.2 F 01/04/20 11:02 Pulse 89 01/04/20 08:00 Resp 17 01/04/20 11:02 BP 114/59 L 01/04/20 11:02 Pulse Ox 98 01/04/20 08:00 Weight - Most Recent: 55.338 kg I&O - Last 24 Hours: Intake & Output 01/03/20 01/04/20 01/04/20 22:59 06:59 14:59 Intake Total 860 Output Total 250 100 Balance 610 -100 Lab Results Last 24 Hours: Laboratory Results - last 24 hr 01/03/20 01/04/20 01/04/20 Range/Units 18:01 05:24 05:24 WBC 7.76 (4.0-11.0) K/uL RBC 3.38 L (4.30-5.90) M/uL Hgb 10.7 L (12.0-16.0) g/dL Hct 32.9 L (36.0-46.0) % MCV 97.3 (80.0-98.0) fL MCH 31.7 (27.0-32.0) pg MCHC 32.5 (31.0-37.0) g/dL RDW Std Deviation 44.4 (28.0-62.0) fl RDW Coeff of John 13 (11.0-15.0) % Plt Count 225 (150-400) K/uL MPV 9.80 (7.40-12.00) fL Neut % (Auto) 79.7 (48.0-80.0) % Lymph % (Auto) 12.6 L (16.0-40.0) % [place] % (Auto) 5.2 (0.0-15.0) % Eos % (Auto) 2.2 (0.0-7.0) % Baso % (Auto) 0.3 (0.0-1.5) % Neut # (Auto) 6.2 H (1.4-5.7) K/uL Lymph # (Auto) 1.0 (0.6-2.4) K/uL [place] # (Auto) 0.4 (0.0-0.8) K/uL Eos # (Auto) 0.2 (0.0-0.7) K/uL Baso # (Auto) 0.0 (0.0-0.1) K/uL Nucleated RBC % 0.0 /100WBC Nucleated RBCs # 0 K/uL Sodium 141 144 (136-145) mmol/L Potassium 4.1 3.6 (3.5-5.1) mmol/L Chloride 107 108 H (98-107) mmol/L Carbon Dioxide 26.8 27.5 (21.0-32.0) mmol/L BUN 18 18 (7.0-18.0) mg/dL Creatinine 0.5 L 0.5 L (0.6-1.0) mg/dL Est Cr Clr Drug Dosing TNP TNP Estimated GFR (MDRD) > 60.0 > 60.0 ml/min Glucose 93 91 (74-106) mg/dL Calcium 9.3 9.0 (8.5-10.1) mg/dL Magnesium 2.0 (1.8-2.4) mg/dL Tj Results Last 24 Hours: Microbiology 12/29/19 17:06 Aerobic Blood Culture - Final Blood - Venous - Lab Draw NO GROWTH AFTER 5 DAYS Anaerobic Blood Culture - Final NO GROWTH AFTER 5 DAYS 12/29/19 17:01 Aerobic Blood Culture - Final Blood - Venous NO GROWTH AFTER 5 DAYS Anaerobic Blood Culture - Final Med Orders - Current: Current Medications Acetaminophen (Tylenol) 650 mg PO Q4HR PRN PRN Reason: Pain Last Admin: 01/02/20 18:34 Dose: 650 mg Documented by: Bisacodyl (Dulcolax) 10 mg RECTAL Q3D PRN PRN Reason: Constipation Cholecalciferol (Vitamin D3) 25 mcg PO DAILY [facility] Last Admin: 01/04/20 09:06 Dose: Not Given Documented by: Clonazepam (Klonopin) 0.5 mg PO BID [facility] Last Admin: 01/04/20 09:06 Dose: Not Given Documented by: Docusate Sodium (Colace 50 Mg/5 Ml Liquid) 100 mg PO DAILY [facility] Last Admin: 01/04/20 09:00 Dose: Not Given Documented by: Fluvoxamine Maleate (Fluvoxamine) 50 mg PO BID [facility] Last Admin: 01/04/20 09:05 Dose: Not Given Documented by: Heparin Sodium (Porcine) (Heparin Sodium) 5,000 units SUBCUT Q8H [facility] Last Admin: 01/04/20 08:52 Dose: 5,000 units Documented by: Azithromycin 500 mg/ Sodium (Chloride) 250 mls @ 250 mls/hr IV Q24H [facility] Last Admin: 01/03/20 22:50 Dose: 250 mls/hr Documented by: Cefepime HCl 1 gm/ Premix 50 mls @ 100 mls/hr IV Q8H [facility] Last Admin: 01/04/20 09:08 Dose: 100 mls/hr Documented by: Polyethylene Glycol (Miralax) 17 gm PO BID [facility] Last Admin: 01/04/20 09:00 Dose: Not Given Documented by: Sodium Chloride (Saline Flush) 2.5 ml FLUSH ASDIRECTED PRN PRN Reason: Keep Vein Open Last Admin: 01/03/20 22:24 Dose: 2.5 ml Documented by: Trazodone HCl (Trazodone) 25 mg PO BEDTIME [facility] Last Admin: 01/03/20 22:22 Dose: Not Given Documented by: Discontinued Medications Azithromycin (Zithromax) 500 mg IV Q24H [facility] Docusate Sodium (Colace) 100 mg PO DAILY [facility] Furosemide (Lasix) 20 mg IVPUSH NOW ONE Stop: 01/04/20 10:41 Last Admin: 01/04/20 11:28 Dose: 20 mg Documented by: Sodium Chloride (Normal Saline) 1,000 mls @ 999 mls/hr IV .Bolus ONE Stop: 12/29/19 17:20 Last Admin: 12/29/19 16:43 Dose: 999 mls/hr Documented by: Cefepime HCl 2 gm/ Premix 50 mls @ 100 mls/hr IV ONETIME ONE Stop: 12/29/19 17:39 Last Admin: 12/29/19 18:32 Dose: 100 mls/hr Documented by: Sodium Chloride (Normal Saline) 1,000 mls @ 100 mls/hr IV Q10H [facility] Sodium Chloride (Sodium Chloride 0.45%) 1,000 mls @ 100 mls/hr IV Q10H [facility] Last Admin: 12/30/19 09:12 Dose: 100 mls/hr Documented by: Sodium Chloride (Normal Saline) 250 mls @ 999 mls/hr IV BOLUS ANDREZ Stop: 12/30/19 13:16 Last Admin: 12/30/19 13:08 Dose: 999 mls/hr Documented by: Sodium Chloride (Normal Saline) 250 mls @ 999 mls/hr IV ONETIME ONE Stop: 12/31/19 08:41 Last Admin: 12/31/19 08:28 Dose: 999 mls/hr Documented by: Sodium Chloride (Sodium Chloride 0.45%) 500 mls @ 100 mls/hr IV Q10H [facility] Stop: 01/03/20 16:14 Last Admin: 01/03/20 11:52 Dose: 100 mls/hr Documented by: Iopamidol (Isovue Multipack-370 (76%)) 100 ml IVPUSH ONETIME STA Stop: 12/31/19 16:55 Last Admin: 12/31/19 17:00 Dose: 75 ml Documented by: Sodium Chloride (Saline Flush) 10 ml FLUSH ASDIRECTED PRN PRN Reason: Keep Vein Open Last Admin: 12/29/19 16:44 Dose: 10 ml Documented by: Sodium Chloride (Saline Flush) 2.5 ml FLUSH ASDIRECTED PRN PRN Reason: Keep Vein Open Last Admin: 12/29/19 16:44 Dose: 2.5 ml Documented by: - Exam General: Alert, Cooperative, No Acute Distress. No: Oriented Lungs: Normal Respiratory Effort, Crackles (Bibasilar) Cardiovascular: Regular Rate, Regular Rhythm GI/Abdominal Exam: Normal Bowel Sounds, Soft, Non-Tender Extremities: Normal Inspection, Normal Range of Motion, Non-Tender, No Pedal Edema Skin: Warm, Dry, Ecchymosis (Bruises to arms from IV folks.) Neurological: No New Focal Deficit Psy/Mental Status: Alert, Normal Affect, Normal Mood Sepsis Event Note - Evaluation Sepsis Screening Result: No Definite Risk - Focused Exam Vital Signs: Vital Signs Temp Pulse Resp BP Pulse Ox 01/04/20 11:02 97.2 F 17 114/59 L 01/04/20 08:00 97.5 F 89 16 125/81 98 01/04/20 04:00 97.9 F 79 20 115/66 95 01/04/20 00:16 98 F 69 20 116/78 94 L - Problem List & Annotations (1) Acute respiratory failure with hypoxia SNOMED Code(s): 26078088, 207803878 Code(s): J96.01 - ACUTE RESPIRATORY FAILURE WITH HYPOXIA Status: Acute Current Visit: Yes (2) Community acquired pneumonia SNOMED Code(s): 311299453 Code(s): J18.9 - PNEUMONIA, UNSPECIFIED ORGANISM Status: Acute Current Visit: Yes (3) UTI (urinary tract infection) SNOMED Code(s): 77058607 Code(s): N39.0 - URINARY TRACT INFECTION, SITE NOT SPECIFIED Status: Acute Current Visit: Yes (4) Altered mental status SNOMED Code(s): 783424251 Code(s): R41.82 - ALTERED MENTAL STATUS, UNSPECIFIED Status: Acute Current Visit: No Onset Date: 04/03/14 (5) Hypothyroidism SNOMED Code(s): 09176923 Code(s): E03.9 - HYPOTHYROIDISM, UNSPECIFIED Status: Acute Current Visit: Yes (6) Intellectual disability SNOMED Code(s): 840588750 Code(s): F79 - UNSPECIFIED INTELLECTUAL DISABILITIES Status: Acute Cu rrent Visit: Yes (7) Bipolar 1 disorder SNOMED Code(s): 275320817 Code(s): F31.9 - BIPOLAR DISORDER, UNSPECIFIED Status: Acute Current Visit: Yes (8) Sepsis SNOMED Code(s): 51483024 Code(s): A41.9 - SEPSIS, UNSPECIFIED ORGANISM Status: Acute Current Visit: Yes - Problem List Review Problem List Initiated/Reviewed/Updated: Yes - My Orders Last 24 Hours: My Active Orders 01/04/20 09:29 Remove Buckner Catheter [Urinary Catheter Removal] [RC] PER UNIT ROUTINE 01/05/20 05:11 BASIC METABOLIC PANEL,BMP [CHEM] AM CBC WITH AUTO DIFF [HEME] AM MG [MAGNESIUM] [CHEM] AM 01/06/20 05:11 BASIC METABOLIC PANEL,BMP [CHEM] AM CBC WITH AUTO DIFF [HEME] AM MG [MAGNESIUM] [CHEM] AM - Plan Plan:: 66 yo female admitted for sepsis with UTI and suspected pneumonia. 1. Suspected severe CAP - Continue treating with cefepime and azithromycin. -Weaned off blow-by this morning we will continue to monitor -We will trial Lasix 20 mg IV this afternoon due to bibasilar pleural effusions. - CT chest reports bronchial thickening with bibasilar pleural effusion with associated infiltrates - Echo: high RV pressures, EF 60% 2. E.coli UTI -Continue cefepime -We will remove Buckner today 3. Hypernatremia -May be due to poor fluid intake. -We will give half NS 500 mils over the next few hours - recheck sodium this evening 4. Bipolar/intellectual disability -Continue home medications VTE prophylaxis: Heparin CODE STATUS DNR/DNI Dispo: 2 days[facility]. I did speak with sister, Cindy, regarding oxygen needs and findings on echo as well as CT of pulmonary edema and pleural effusions. She explained that Carleen was otherwise normal until the age of 4 when she had seizures from high fevers and then had some intellectual disabilities after that. She then later in her life was found unresponsive after an aspiration event and was quite sick and since then had had likely an anoxic brain injury. She would like her to see bridge inspector regarding findings on echo. She at this time does not want to place her on palliative or comfort measures. She will await cardiology consultation as an outpatient. We did discuss that she may be discharged back to [place] tomorrow as long as she remains medically stable.
[2020-01-04] MEDS: traZODone 50 MG Tab PO SCH (20:58)
[2020-01-04] MEDS: Azithromycin 500 MG in Sodium Chloride 0.9% 250 ML IV SCH (22:31)
[2020-01-04] MEDS: Sodium Chloride 0.9% 2.5 ML Syringe FLUSH PRN (22:32)
[2020-01-05] MEDS: Heparin Sodium 5,000 Units/ML Vial SUBCUT SCH ×2 (00:29→10:22)
[2020-01-05] MEDS: Cefepime 1 GM in Premix Bag 1 BAG IV SCH ×2 (00:30→10:27)
[2020-01-05 04:14] VITALS: BP 104/62
[2020-01-05 06:20] LABS: BLOOD UREA NITROGEN,BUN 22 mg/dL (7.0-18.0); CARBON DIOXIDE,CO2 29.7 mmol/L (21.0-32.0); CHLORIDE,CL 106 mmol/L (98-107); GLUCOSE RANDOM 77 mg/dL (74-106); POTASSIUM,K 3.6 mmol/L (3.5-5.1); SODIUM,NA 144 mmol/L (136-145)
--- NOTE | 2020-01-05 08:27 | PCM.DCSUM1 ---
Discharge Summary - Hospital Course Brief History: 64 yo female with pmh of bipolar disorder and intellectual disability, nonverbal at baseline who presents to the ED from [facility] with complaint of fever. In the ED patient was discovered to have UTI and given cefepime - Discharge Data Discharge Date: 01/05/20 Discharge Disposition: DC/Tfer to SNF 03 Condition: Good - Referral to Home Health Primary Care Physician: Juan Akers MD - Discharge Diagnosis/Problem(s) (1) Acute respiratory failure with hypoxia SNOMED Code(s): 05028131, 827915286 ICD Code: J96.01 - ACUTE RESPIRATORY FAILURE WITH HYPOXIA Status: Acute (2) Community acquired pneumonia SNOMED Code(s): 027578853 ICD Code: J18.9 - PNEUMONIA, UNSPECIFIED ORGANISM Status: Acute (3) UTI (urinary tract infection) SNOMED Code(s): 47980570 ICD Code: N39.0 - URINARY TRACT INFECTION, SITE NOT SPECIFIED Status: Acute (4) Altered mental status SNOMED Code(s): 074561080 ICD Code: R41.82 - ALTERED MENTAL STATUS, UNSPECIFIED Status: Acute Onset Date: 04/03/14 (5) Hypothyroidism SNOMED Code(s): 81388977 ICD Code: E03.9 - HYPOTHYROIDISM, UNSPECIFIED Status: Acute (6) Intellectual disability SNOMED Code(s): 300974313 ICD Code: F79 - UNSPECIFIED INTELLECTUAL DISABILITIES Status: Acute (7) Bipolar 1 disorder SNOMED Code(s): 693353878 ICD Code: F31.9 - BIPOLAR DISORDER, UNSPECIFIED Status: Acute (8) Sepsis SNOMED Code(s): 89211971 ICD Code: A41.9 - SEPSIS, UNSPECIFIED ORGANISM Status: Acute - Patient Summary/Data Hospital Course: Admission diagnoses Sepsis UTI Severe CAP Acute hypoxic respiratory failure Discharge diagnoses UTI resolved Pneumonia fully treated Acute hypoxic respiratory failure resolved Right ventricular hypertrophy Other PMH Intellectual disabilities History of anoxic brain injury Carleen was admitted secondary to UTI acute hypoxic respiratory failure and severe CAP. She was treated with cefepime and azithromycin. She was given gentle IV fluids. Chest x-ray revealing pulmonary edema and possible opacities. She was placed on oxygen which she did not tolerate well via nasal cannula blow-by oxygen was started which she tolerated much better. Echo obtained due to findings pulmonary edema on chest x-ray. EF reported at 65 to 70%. Moderate RV dilation with moderate RV dysfunction with septal flattening consistent with RV pressure overload right ventricular systolic pressure is mildly elevated at 38.9. Erazo sign is present with preservation of RV apical contractility, per report. CTA was obtained to rule out pulmonary embolism. CTA chest was negative for pulmonary embolism. We will continue with antibiotics. I discussed findings of echo with sister, Cindy, nothing urgent to be evaluated but she does want to follow through with cardiology evaluation as an outpatient for echo findings. She has no significant history of cardiac disease. But did have a aspiration event causing anoxic brain injury quite a few years ago. She was weaned off oxygen during her stay and has been on room air satting low 90s for the last 24 hours. She has completed 7 days of cefepime as well as azithromycin. Covid swab negative today she will be discharged back to [place]. No changes to home medications. Oxygen as needed to keep sats greater than 90%. Cardiology follow-up to be established. She is to return to the ER or clinic if concerns should arise sooner. - Patient Instructions Diet: Pureed Activity: No Strenuous Activities Driving: Do Not Drive Showering/Bathing: May Shower Notify Provider of: Fever, Increased Pain, Swelling and Redness, Drainage, Nausea and/or Vomiting Other/Special Instructions: PT/OT to evaluate and treat. Oxygen 2 L NC to keep sats greater than 90% PRN sats less than 90% - Discharge Plan *PRESCRIPTION DRUG MONITORING PROGRAM REVIEWED*: Not Applicable *COPY OF PRESCRIPTION DRUG MONITORING REPORT IN PATIENT [place]: Not Applicable Prescriptions/Med Rec: ClonazePAM [KlonoPIN] 1 tab PO BID #15 traZODone HCl [Trazodone HCl] 25 mg PO BEDTIME #15 Home Medications: Home Meds fluvoxaMINE Maleate [Fluvoxamine Maleate] 50 mg PO BID 11/20/14 [History] polyethylene glycoL 3350 [Miralax] 17 g PO BID 11/20/14 [History] Acetaminophen [Arthritis Pain Relief] 650 mg PO Q4HR PRN 11/06/18 [History] Bisacodyl [Gentle Laxative] 10 mg RC ASDIRECTED PRN 11/06/18 [History] Cholecalciferol (Vitamin D3) [Vitamin D3] 1,000 unit PO DAILY 09/20/19 [History] Docusate Sodium [Colace] 100 mg PO DAILY 11/06/18 [History] Multivitamin [Multivitamins] 1 each PO DAILY 11/06/18 [History] ClonazePAM [KlonoPIN] 1 tab PO BID #15 01/05/20 [Rx] traZODone HCl [Trazodone HCl] 25 mg PO BEDTIME #15 01/05/20 [Rx] Oxygen Therapy Mode: Room Air Referrals: Juan Akers MD [Primary Care Provider] - 01/11/20 10:15 am Ruben Garibay MD [Physician] - - Discharge Summary/Plan Comment DC Time >30 min.: Yes (Discussing with Dr Akers and transferring to [place].) - Patient Data Vitals - Most Recent: Last Vital Signs Temp 97.3 F 01/05/20 03:49 Pulse 92 01/05/20 03:49 Resp 18 01/05/20 03:49 BP 104/62 01/05/20 03:49 Pulse Ox 91 L 01/05/20 03:49 Weight - Most Recent: 55.338 kg I&O - Last 24 hours: Intake & Output 01/04/20 01/05/20 01/05/20 22:59 06:59 14:59 Intake Total 50 420 Output Total 150 Balance -100 420 Lab Results - Last 24 hrs: Laboratory Results - last 24 hr 01/05/20 01/05/20 Range/Units 05:30 05:30 WBC 7.14 (4.0-11.0) K/uL RBC 3.75 L (4.30-5.90) M/uL Hgb 11.7 L (12.0-16.0) g/dL Hct 36.4 (36.0-46.0) % MCV 97.1 (80.0-98.0) fL MCH 31.2 (27.0-32.0) pg MCHC 32.1 (31.0-37.0) g/dL RDW Std Deviation 44.4 (28.0-62.0) fl RDW Coeff of John 13 (11.0-15.0) % Plt Count 263 (150-400) K/uL MPV 9.70 (7.40-12.00) fL Neut % (Auto) 68.5 (48.0-80.0) % Lymph % (Auto) 19.0 (16.0-40.0) % [place] % (Auto) 6.7 (0.0-15.0) % Eos % (Auto) 5.2 (0.0-7.0) % Baso % (Auto) 0.6 (0.0-1.5) % Neut # (Auto) 4.9 (1.4-5.7) K/uL Lymph # (Auto) 1.4 (0.6-2.4) K/uL [place] # (Auto) 0.5 (0.0-0.8) K/uL Eos # (Auto) 0.4 (0.0-0.7) K/uL Baso # (Auto) 0.0 (0.0-0.1) K/uL Nucleated RBC % 0.0 /100WBC Nucleated RBCs # 0 K/uL Sodium 144 (136-145) mmol/L Potassium 3.6 (3.5-5.1) mmol/L Chloride 106 (98-107) mmol/L Carbon Dioxide 29.7 (21.0-32.0) mmol/L BUN 22 H (7.0-18.0) mg/dL Creatinine 0.6 (0.6-1.0) mg/dL Est Cr Clr Drug Dosing TNP Estimated GFR (MDRD) > 60.0 ml/min Glucose 77 (74-106) mg/dL Calcium 9.4 (8.5-10.1) mg/dL Magnesium 2.2 (1.8-2.4) mg/dL Med Orders - Current: Current Medications Acetaminophen (Tylenol) 650 mg PO Q4HR PRN PRN Reason: Pain Last Admin: 01/02/20 18:34 Dose: 650 mg Documented by: Bisacodyl (Dulcolax) 10 mg RECTAL Q3D PRN PRN Reason: Constipation Cholecalciferol (Vitamin D3) 25 mcg PO DAILY [facility] Last Admin: 01/04/20 09:06 Dose: Not Given Documented by: Clonazepam (Klonopin) 0.5 mg PO BID [facility] Last Admin: 01/04/20 20:58 Dose: Not Given Documented by: Docusate Sodium (Colace 50 Mg/5 Ml Liquid) 100 mg PO DAILY [facility] Last Admin: 01/04/20 09:00 Dose: Not Given Documented by: Fluvoxamine Maleate (Fluvoxamine) 50 mg PO BID [facility] Last Admin: 01/04/20 20:58 Dose: Not Given Documented by: Heparin Sodium (Porcine) (Heparin Sodium) 5,000 units SUBCUT Q8H [facility] Last Admin: 01/05/20 00:29 Dose: 5,000 units Documented by: Azithromycin 500 mg/ Sodium (Chloride) 250 mls @ 250 mls/hr IV Q24H [facility] Last Admin: 01/04/20 22:31 Dose: 250 mls/hr Documented by: Cefepime HCl 1 gm/ Premix 50 mls @ 100 mls/hr IV Q8H [facility] Last Admin: 01/05/20 00:30 Dose: 100 mls/hr Documented by: Polyethylene Glycol (Miralax) 17 gm PO BID [facility] Last Admin: 01/04/20 20:58 Dose: Not Given Documented by: Sodium Chloride (Saline Flush) 2.5 ml FLUSH ASDIRECTED PRN PRN Reason: Keep Vein Open Last Admin: 01/04/20 22:32 Dose: 2.5 ml Documented by: Trazodone HCl (Trazodone) 25 mg PO BEDTIME [facility] Last Admin: 01/04/20 20:58 Dose: Not Given Documented by: Discontinued Medications Azithromycin (Zithromax) 500 mg IV Q24H [facility] Docusate Sodium (Colace) 100 mg PO DAILY [facility] Furosemide (Lasix) 20 mg IVPUSH NOW ONE Stop: 01/04/20 10:41 Last Admin: 01/04/20 11:28 Dose: 20 mg Documented by: Sodium Chloride (Normal Saline) 1,000 mls @ 999 mls/hr IV .Bolus ONE Stop: 12/29/19 17:20 Last Admin: 12/29/19 16:43 Dose: 999 mls/hr Documented by: Cefepime HCl 2 gm/ Premix 50 mls @ 100 mls/hr IV ONETIME ONE Stop: 12/29/19 17:39 Last Admin: 12/29/19 18:32 Dose: 100 mls/hr Documented by: Sodium Chloride (Normal Saline) 1,000 mls @ 100 mls/hr IV Q10H [facility] Sodium Chloride (Sodium Chloride 0.45%) 1,000 mls @ 100 mls/hr IV Q10H [facility] Last Admin: 12/30/19 09:12 Dose: 100 mls/hr Documented by: Sodium Chloride (Normal Saline) 250 mls @ 999 mls/hr IV BOLUS ANDREZ Stop: 12/30/19 13:16 Last Admin: 12/30/19 13:08 Dose: 999 mls/hr Documented by: Sodium Chloride (Normal Saline) 250 mls @ 999 mls/hr IV ONETIME ONE Stop: 12/31/19 08:41 Last Admin: 12/31/19 08:28 Dose: 999 mls/hr Documented by: Sodium Chloride (Sodium Chloride 0.45%) 500 mls @ 100 mls/hr IV Q10H [facility] Stop: 01/03/20 16:14 Last Admin: 01/03/20 11:52 Dose: 100 mls/hr Documented by: Iopamidol (Isovue Multipack-370 (76%)) 100 ml IVPUSH ONETIME STA Stop: 12/31/19 16:55 Last Admin: 12/31/19 17:00 Dose: 75 ml Documented by: Sodium Chloride (Saline Flush) 10 ml FLUSH ASDIRECTED PRN PRN Reason: Keep Vein Open Last Admin: 12/29/19 16:44 Dose: 10 ml Documented by: Sodium Chloride (Saline Flush) 2.5 ml FLUSH ASDIRECTED PRN PRN Reason: Keep Vein Open Last Admin: 12/29/19 16:44 Dose: 2.5 ml Documented by:
[2020-01-05 10:21] VITALS: PULSE 85
[2020-01-05] MEDS: ClonazePAM 0.5 MG Tab PO SCH (10:25)
[2020-01-05] MEDS: fluvoxaMINE 50 MG Tab PO SCH (10:26)
[2020-01-05] MEDS: Docusate Sodium Liquid 100 MG/10 ML UD Cup PO SCH (10:26)
[2020-01-05] MEDS: Cholecalciferol (Vitamin D3) 25 MCG Tab PO SCH (10:27)
[2020-01-05] MEDS: Polyethylene Glycol 3350 Powder 17 GM Packet PO SCH (10:29)
== END 2020-01-05 12:30 | DRG 871 ==
LOC: MW.ED 15:23 → MW.MS 20:23
PROVIDERS: ADMIT Internal Medicine; ATTEND Internal Medicine
DX: A41.51 Sepsis due to Escherichia coli [E. coli] (principal); R09.02 Hypoxemia; J96.01 Acute respiratory failure with hypoxia; J18.9 Pneumonia, unspecified organism; N39.0 Urinary tract infection, site not specified; E87.0 Hyperosmolality and hypernatremia; Z16.11 Resistance to penicillins; Z16.23 Resistance to quinolones and fluoroquinolones; J81.1 Chronic pulmonary edema; F41.9 Anxiety disorder, unspecified; R41.82 Altered mental status, unspecified; E03.9 Hypothyroidism, unspecified; F79 Unspecified intellectual disabilities; F31.9 Bipolar disorder, unspecified; I51.7 Cardiomegaly; M19.90 Unspecified osteoarthritis, unspecified site; G47.00 Insomnia, unspecified; G25.81 Restless legs syndrome; D64.9 Anemia, unspecified; R26.2 Difficulty in walking, not elsewhere classified; F43.10 Post-traumatic stress disorder, unspecified; M54.9 Dorsalgia, unspecified; B96.20 Unspecified Escherichia coli [E. coli] as the cause of diseases classified elsewhere; Z66 Do not resuscitate; D69.6 Thrombocytopenia, unspecified; Z20.828 Contact with and (suspected) exposure to other viral communicable diseases; Z99.81 Dependence on supplemental oxygen; Z87.820 Personal history of traumatic brain injury; Z79.899 Other long term (current) drug therapy; Z79.1 Long term (current) use of non-steroidal anti-inflammatories (NSAID); Z88.0 Allergy status to penicillin; Z91.030 Bee allergy status
CPT/HCPCS: 36415; 71045; 80053; 81001; 83605; 83690; 83735; 83880; 84484 ×2; 85025; 85610; 85730; 86140; 87040 ×2; 87086; 87186; 93005; 96365; 99285; J0692; J7030; U0002; 51702; 71275; 71275-26; 80048; 87088; 93010; 93306; 99221; 99231; 99232; 99239; 99283; A9270-GY; J0456; J1644; J1940; J7050; Q9967

== ENCOUNTER 2020-08-31 12:35 | Observation (INO) | payer MEDICARE, MEDICAID ==
[2020-08-31] MEDS ORDERED: Sodium Chloride 0.9% 1,000 ML IV ONE ×2 (12:46→15:49)
--- NOTE | 2020-08-31 12:48 | EDM.PDOC ---
ED HPI GENERAL MEDICAL PROBLEM - General Chief Complaint: Neuro Symptoms/Deficits Stated Complaint: SEIZURES Time Seen by Provider: 08/31/20 12:44 Source of Information: Reports: Patient History Limitations: Reports: No Limitations - History of Present Illness INITIAL COMMENTS - FREE TEXT/NARRATIVE: HISTORY AND PHYSICAL: History of present illness: Patient is a 65-year-old female who presents to the emergency room by ambulance from [facility] with concerns of seizure-like activity. Past medical history of intellectual disability who is nonverbal at baseline, anxiety, bipolar disorder, PTSD, hypothyroidism, tachycardia and anemia. The snf stated that she had 2 witnessed seizures, first one was about 15 seconds (states she was awake but shaking) and the second one started about 15 minutes afterwards (lasted about 1 minute in which her body was shaking but "very stiff" and her eyes rolled back in her head). The nurse stated she was hypotensive afterwards and decided to transfer her to the ED. Patient recently stopped taking her Clonazepam 2 weeks ago (was tappered off) due to her having a decreased oral intake. Upon patient arrival she is asleep and her vital signs are stable. As mentioned previously she is nonverbal. Her physical exam is on remarkable. Family member is said to be coming to help give a better HPI. [facility] Resident. CODE III: DNR. Primary care provider is Dr. Akers at [facility] Review of systems: As per history of present illness and below otherwise all systems reviewed and negative. Past medical history: As per history of present illness and as reviewed below otherwise noncontributory. Surgical history: As per history of present illness and as reviewed below otherwise noncontributory. Social history: See social history for further information Family history: As per history of present illness and as reviewed below otherwise noncontributory. Physical exam: General: Well developed and well nourished. Alert and appropriate for self, nonverbal and intellectually disabled. Nontoxic in appearance and in no acute distress. Vital signs are stable and have been reviewed by me. Nursing notes were reviewed. HEENT: Atraumatic, normocephalic, pupils equal and reactive bilaterally, negative for conjunctival pallor or scleral icterus, mucous membranes moist, TMs normal bilaterally, throat clear, neck supple, nontender, trachea midline. No drooling or trismus noted. No meningeal signs. No hot potato voice noted. Lungs: Clear to auscultation bilaterally. No wheezes, rales, or rhonchi. Chest nontender. Normal work of breathing, no accessory muscles used. Heart: S1S2, tachycardia and rhythm without overt murmur, gallops, or rubs. No JVD. No peripheral edema Abdomen: Soft, nondistended, nontender. Normoactive bowel sounds. Negative for masses or costovertebral tenderness. Skin: Intact, warm, dry. No lesions or rashes noted. Hematologic: No petechiae or purpra. Mucosa appropriate color and normal nail bed color and refill. Extremities: Atraumatic, moves all extremities per self without difficulty or deficits, negative for cords or calf pain. Neurovascular unremarkable. Neuro: Awake, alert, oriented. Cranial nerves II through XII unremarkable. Cerebellum unremarkable. Motor and sensory unremarkable throughout. Exam nonfocal. Psychiatric: Mood and affect are appropriate. Normal thought process. Answering questions appropriately. Notes: *This patient was seen and evaluated during the 2019 SARS-CoV-2 novel coronavirus pandemic period. Community viral transmission is ongoing at time of this encounter and the emergency department is operating under pandemic response procedures. Upon patient arrival she is asleep but arousable. Vital signs are stable. Physical exam is unremarkable. I did talk with the caregiver at [facility] who gave me report that is in the HPI. We will do lab work, head CT, chest x-ray and give a 500 bolus of NS. 1340: Patient is alert and interacting with staff. Vital signs are stable. Waiting lab results and imaging. Patient's lactate is elevated, likely from the seizure activity. No concerns for sepsis. Patient also has a urinary tract infection, will treat with antibiotics. Head CT shows no gross intracranial abnormalities. Left maxillary sinus disease. I have talked with the patient about today's findings, in addition to providing specific details for plan of care. Reassessment at the time of disposition demonstrates that the patient is in no acute distress. Due to the possible new onset of seizure and current UTI, will keep for observation. Dr Rajput, hospitalist on-call, is agreeable to plan of care and Diagnostics: CBC, CMP, troponin, EKG, chest x-ray, head CT Therapeutics: 500 NS, Rocephin Impression: UTI Seizure, new onset Plan: Observation admission to Med/Surg Definitive disposition and diagnosis as appropriate pending reevaluation and review of above. - Related Data Allergies Allergy/AdvReac Type Severity Reaction Status Date / Time Penicillins Allergy Rash Verified 08/31/20 12:41 venom-honey bee Allergy Anaphylactic Verified 08/31/20 12:41 [bee venom (honey bee)] Shock Home Meds: Home Meds fluvoxaMINE Maleate [Fluvoxamine Maleate] 50 mg PO BID 11/20/14 [History] polyethylene glycoL 3350 [Miralax] 17 g PO BID 11/20/14 [History] Acetaminophen [Arthritis Pain Relief] 650 mg PO Q4HR PRN 11/06/18 [History] Bisacodyl [Gentle Laxative] 10 mg RC ASDIRECTED PRN 11/06/18 [History] Cholecalciferol (Vitamin D3) [Vitamin D3] 1,000 unit PO DAILY 11/06/18 [History] Docusate Sodium [Colace] 100 mg PO DAILY 11/06/18 [History] Multivitamin [Multivitamins] 1 each PO DAILY 11/06/18 [History] Furosemide [Lasix] 40 mg PO DAILY 08/31/20 [History] Past Medical History Cardiovascular History: Reports: Other (See Below) Other Cardiovascular History: tachycardia, hypotension Gastrointestinal History: Reports: Chronic Constipation Genitourinary History: Reports: Urinary Incontinence Musculoskeletal History: Reports: Osteoarthritis Other Musculoskeletal History: difficulty walking,muscle weakness,hip pain Neurological History: Reports: Speech Problems Psychiatric History: Reports: Anxiety, Bipolar, Mood Swings, PTSD Other Psychiatric History: insomnia, restless legs syndrome Endocrine/Metabolic History: Reports: Hypothyroidism Hematologic History: Reports: Anemia - Infectious Disease History Infectious Disease History: Reports: MRSA - Past Surgical History Cardiovascular Surgical History: Reports: None Social & Family History - Family History Family Medical History: No Pertinent Family History - Caffeine Use Caffeine Use: Reports: None ED ROS GENERAL - Review of Systems Review Of Systems: Comprehensive ROS is negative, except as noted in HPI. ED EXAM, NEURO - Physical Exam Exam: See Below (See dictation) Course - Vital Signs Last Recorded V/S: Last Vital Signs Temp 97.7 F 08/31/20 12:44 Pulse 89 08/31/20 16:13 Resp 16 08/31/20 16:13 BP 98/72 08/31/20 16:13 Pulse Ox 94 L 08/31/20 16:13 - Orders/Labs/Meds Orders: Active Orders 24 hr Category Date Time Status Admission Status [Patient Status] [ADT] Stat ADT 08/31/20 15:11 Active Cardiac Monitoring [RC] . DIRECTED Care 08/31/20 12:48 Active Cardiac Monitoring [RC] . DIRECTED Care 08/31/20 15:11 Active EKG Documentation Completion [RC] STAT Care 08/31/20 12:48 Active B-TYPE NATRIURETIC PEPTIDE,BNP [CHEM] Stat Lab 08/31/20 15:49 Ordered CULTURE URINE [MREF] Stat Lab 08/31/20 14:30 Received REFLEX LACTIC ACID YES OR NO [CHEM] Routine Lab 08/31/20 14:32 Received Sodium Chloride 0.9% [Normal Saline] 1,000 ml Med 08/31/20 15:49 Active IV STAT Medication Orders Sodium Chloride (Normal Saline) 1,000 mls @ 125 mls/hr IV STAT ONE Stop: 08/31/20 23:48 Last Admin: 08/31/20 16:01 Dose: 125 mls/hr Documented by: KRYSTLE Labs: Laboratory Tests 08/31/20 08/31/20 08/31/20 Range/Units 13:39 13:39 13:39 WBC 9.92 (4.0-11.0) K/uL RBC 4.15 L (4.30-5.90) M/uL Hgb 13.4 (12.0-16.0) g/dL Hct 39.3 (36.0-46.0) % MCV 94.7 (80.0-98.0) fL MCH 32.3 H (27.0-32.0) pg MCHC 34.1 (31.0-37.0) g/dL RDW Std Deviation 43.6 (28.0-62.0) fl RDW Coeff of John 13 (11.0-15.0) % Plt Count 176 (150-400) K/uL MPV 10.30 (7.40-12.00) fL Neut % (Auto) 87.7 H (48.0-80.0) % Lymph % (Auto) 6.9 L (16.0-40.0) % Mckean % (Auto) 5.0 (0.0-15.0) % Eos % (Auto) 0.2 (0.0-7.0) % Baso % (Auto) 0.2 (0.0-1.5) % Neut # (Auto) 8.7 H (1.4-5.7) K/uL Lymph # (Auto) 0.7 (0.6-2.4) K/uL Mckean # (Auto) 0.5 (0.0-0.8) K/uL Eos # (Auto) 0.0 (0.0-0.7) K/uL Baso # (Auto) 0.0 (0.0-0.1) K/uL Nucleated RBC % 0.0 /100WBC Nucleated RBCs # 0 K/uL Sodium 142 (136-145) mmol/L Potassium 3.5 (3.5-5.1) mmol/L Chloride 107 (98-107) mmol/L Carbon Dioxide 26.9 (21.0-32.0) mmol/L BUN 24 H (7.0-18.0) mg/dL Creatinine 0.7 (0.6-1.0) mg/dL Est Cr Clr Drug Dosing TNP Estimated GFR (MDRD) > 60.0 ml/min Glucose 115 H (74-106) mg/dL Lactic Acid 2.7 H* (0.4-2.0) mmol/L Calcium 8.9 (8.5-10.1) mg/dL Total Bilirubin 0.2 (0.2-1.0) mg/dL AST 36 (15-37) IU/L ALT 46 (14-63) IU/L Alkaline Phosphatase 66 (46-116) U/L Troponin I < 0.050 (0.000-0.056) ng/mL Total Protein 7.0 (6.4-8.2) g/dL Albumin 3.5 (3.4-5.0) g/dL Globulin 3.5 (2.6-4.0) g/dL Albumin/Globulin Ratio 1.0 (0.9-1.6) Urine Color Urine Appearance Urine pH (5.0-8.0) Ur Specific [place] (1.001-1.035) Urine Protein (NEGATIVE) mg/dL Urine Glucose (UA) (NEGATIVE) mg/dL Urine Ketones (NEGATIVE) mg/dL Urine Occult Blood (NEGATIVE) Urine Nitrite (NEGATIVE) Urine Bilirubin (NEGATIVE) Urine Urobilinogen (<2.0) EU/dL Ur Leukocyte Esterase (NEGATIVE) Urine RBC (0-2/HPF) Urine WBC (0-5/HPF) Ur Epithelial Cells (NONE-FEW) Urine Bacteria (NEGATIVE) SARS-CoV-2 RNA (ANNAMARIA) (NEGATIVE) 08/31/20 08/31/20 Range/Units 14:30 15:19 WBC (4.0-11.0) K/uL RBC (4.30-5.90) M/uL Hgb (12.0-16.0) g/dL Hct (36.0-46.0) % MCV (80.0-98.0) fL MCH (27.0-32.0) pg MCHC (31.0-37.0) g/dL RDW Std Deviation (28.0-62.0) fl RDW Coeff of John (11.0-15.0) % Plt Count (150-400) K/uL MPV (7.40-12.00) fL Neut % (Auto) (48.0-80.0) % Lymph % (Auto) (16.0-40.0) % Mckean % (Auto) (0.0-15.0) % Eos % (Auto) (0.0-7.0) % Baso % (Auto) (0.0-1.5) % Neut # (Auto) (1.4-5.7) K/uL Lymph # (Auto) (0.6-2.4) K/uL Mckean # (Auto) (0.0-0.8) K/uL Eos # (Auto) (0.0-0.7) K/uL Baso # (Auto) (0.0-0.1) K/uL Nucleated RBC % /100WBC Nucleated RBCs # K/uL Sodium (136-145) mmol/L Potassium (3.5-5.1) mmol/L Chloride (98-107) mmol/L Carbon Dioxide (21.0-32.0) mmol/L BUN (7.0-18.0) mg/dL Creatinine (0.6-1.0) mg/dL Est Cr Clr Drug Dosing Estimated GFR (MDRD) ml/min Glucose (74-106) mg/dL Lactic Acid (0.4-2.0) mmol/L Calcium (8.5-10.1) mg/dL Total Bilirubin (0.2-1.0) mg/dL AST (15-37) IU/L ALT (14-63) IU/L Alkaline Phosphatase (46-116) U/L Troponin I (0.000-0.056) ng/mL Total Protein (6.4-8.2) g/dL Albumin (3.4-5.0) g/dL Globulin (2.6-4.0) g/dL Albumin/Globulin Ratio (0.9-1.6) Urine Color YELLOW Urine Appearance CLEAR Urine pH 6.0 (5.0-8.0) Ur Specific [place] 1.025 (1.001-1.035) Urine Protein NEGATIVE (NEGATIVE) mg/dL Urine Glucose (UA) NEGATIVE (NEGATIVE) mg/dL Urine Ketones NEGATIVE (NEGATIVE) mg/dL Urine Occult Blood NEGATIVE (NEGATIVE) Urine Nitrite POSITIVE H (NEGATIVE) Urine Bilirubin NEGATIVE (NEGATIVE) Urine Urobilinogen 0.2 (<2.0) EU/dL Ur Leukocyte Esterase MODERATE H (NEGATIVE) Urine RBC 0-2 (0-2/HPF) Urine WBC 10-15 (0-5/HPF) Ur Epithelial Cells RARE (NONE-FEW) Urine Bacteria 3+ H (NEGATIVE) SARS-CoV-2 RNA (ANNAMARIA) NEGATIVE (NEGATIVE) Meds: Medications Generic Name Dose Route Start Last Admin Trade Name Jaime PRN Reason Stop Dose Admin Sodium Chloride 1,000 mls @ 125 mls/hr 08/31/20 15:49 08/31/20 16:01 Normal Saline IV 08/31/20 23:48 125 mls/hr STAT ONE Administration Discontinued Medications Generic Name Dose Route Start Last Admin Trade Name Jaime PRN Reason Stop Dose Admin Sodium Chloride 1,000 mls @ 999 mls/hr 08/31/20 12:46 08/31/20 13:29 Normal Saline IV 08/31/20 13:46 999 mls/hr STAT ONE Administration Ceftriaxone Sodium/Dextrose 1 50 mls @ 100 mls/hr 08/31/20 15:46 08/31/20 16:02 gm/ Premix IV 08/31/20 16:15 100 mls/hr ONETIME ONE Administration Departure - Departure Time of Disposition: 16:41 Disposition: Refer to Observation Clinical Impression: Seizure UTI (urinary tract infection) Qualifiers: Urinary tract infection type: acute cystitis Hematuria presence: without hematuria Qualified Code(s): N30.00 - Acute cystitis without hematuria - Discharge Information Referrals: PCP,None [Primary Care Provider] - Forms: ED Department Discharge Sepsis Event Note (ED) - Focused Exam Vital Signs: Vital Signs Temp Pulse Resp BP Pulse Ox 08/31/20 16:13 89 16 98/72 94 L 08/31/20 14:45 99 16 100/53 L 94 L 08/31/20 13:33 109 H 16 120/59 L 93 L 08/31/20 12:44 97.7 F 120 H 18 102/46 L 93 L - My Orders Last 24 Hours: My Active Orders 08/31/20 12:48 Cardiac Monitoring [RC] . DIRECTED EKG Documentation Completion [RC] STAT 08/31/20 14:30 CULTURE URINE [MREF] Stat 08/31/20 14:32 REFLEX LACTIC ACID YES OR NO [CHEM] Routine 08/31/20 15:11 Admission Status [Patient Status] [ADT] Stat Cardiac Monitoring [RC] . DIRECTED 08/31/20 15:49 B-TYPE NATRIURETIC PEPTIDE,BNP [CHEM] Stat Sodium Chloride 0.9% [Normal Saline] 1,000 ml IV STAT - Assessment/Plan Last 24 Hours: My Active Orders 08/31/20 12:48 Cardiac Monitoring [RC] . DIRECTED EKG Documentation Completion [RC] STAT 08/31/20 14:30 CULTURE URINE [MREF] Stat 08/31/20 14:32 REFLEX LACTIC ACID YES OR NO [CHEM] Routine 08/31/20 15:11 Admission Status [Patient Status] [ADT] Stat Cardiac Monitoring [RC] . DIRECTED 08/31/20 15:49 B-TYPE NATRIURETIC PEPTIDE,BNP [CHEM] Stat Sodium Chloride 0.9% [Normal Saline] 1,000 ml IV STAT
--- NOTE | 2020-08-31 13:26 | PCM.SN.2 ---
- Free Text/Narrative Note: EKG sinus tachycardia heart rate 114 LA 151 axis -37 anterior Q compared 07/24/2020 no acute change impression no acute injury
--- NOTE | 2020-08-31 13:37 | CR ---
HISTORY: Seizure activity. TECHNIQUE: One view chest. COMPARISON: 12/29/2019. FINDINGS: Patient is rotated to the left. No focal lung infiltrate or pulmonary edema. No pneumothorax or pleural effusion. Cardiac size and pulmonary vasculature are within normal limits. IMPRESSION: No acute disease. Dictated by Gamaliel Obregon MD @ 08/31/2020 1:36:[address] Gamaliel Obregon @ Aug 31 2020 1:36PM
--- NOTE | 2020-08-31 14:06 | CT ---
INDICATION: Seizures TECHNIQUE: CT head without contrast. COMPARISON: None FINDINGS: CSF spaces: Within normal limits for age. Brain parenchyma: The ramirez-white differentiation is normal. No sign of mass, hemorrhage, or midline shift. Skull base and calvarium: Left maxillary sinus disease the visualized orbits are grossly unremarkable. No skull fractures. IMPRESSION: No gross intracranial abnormalities. Left maxillary sinus disease. Please note that all CT scans at this facility use dose modulation, iterative reconstruction, and/or weight-based dosing when appropriate to reduce radiation dose to as low as reasonably achievable. Dictated by Christopher King MD @ 08/31/2020 2:05:[address] Christopher King @ Aug 31 2020 2:05PM
[2020-08-31 14:31] LABS: BLOOD UREA NITROGEN,BUN 24 mg/dL (7.0-18.0); CARBON DIOXIDE,CO2 26.9 mmol/L (21.0-32.0); CHLORIDE,CL 107 mmol/L (98-107); GLUCOSE RANDOM 115 mg/dL (74-106); POTASSIUM,K 3.5 mmol/L (3.5-5.1); SODIUM,NA 142 mmol/L (136-145)
[2020-08-31] MEDS ORDERED: cefTRIAXone 1 GM in Premix Bag 1 BAG IV ONE (15:46)
--- NOTE | 2020-08-31 16:19 | PCM.HP.2 ---
H&P History of Present Illness - General Date of Service: 08/31/20 Admit Problem/Dx: Admission Diagnosis/Problem Admission Diagnosis/Problem UTI, Urinary tract infectious disease Source of Information: Family, Old Records, Other ([facility] staff report) - History of Present Illness Initial Comments - Free Text/Narative: This 65-year-old female with past medical history of intellectual disability, anxiety, bipolar disorder, hypothyroidism, tachycardia, cardiomegaly and anemia presented to the ER from [facility] via ambulance with concerns of seizure-like activity. Patient nonverbal and unable to provide HPI, sister at bedside who knows only report from [place]. Reports that she has been otherwise doing well and recently they had tapered her off of clonazepam. Per reports from [place] patient had 2 witnessed seizures the first 1 is about 15 seconds reported that she was awake but shaking in the second started about 15 minutes after the first lasted about 1 minute and her whole body was shaking but very stiff and her eyes rolled back in her head. Patient was noted to have lower blood pressures and nursing staff opted to transfer her to the ER for further evaluation. Patient was noted to be postictal in the ER and woke up approximately 20 minutes later and she has been awake and alert continues to be nonverbal but family at bedside reports she is near normal. In the ER no leukocytosis noted WBC 9000. Sodium 142 potassium 3.5 BUN 24 creatinine 0.7. Glucose 115 lactic acid elevated at 2.7. Troponin negative UA positive nitrite positive leukocyte esterase WBCs 10-15 bacteria 3+. Vital signs in the ER shows tachycardia with hypotension initially of 102/46. After IV fluids heart rate dropped to 109 blood pressure 120/59 93% on room air. She was given 1 L IV fluids urine culture pending. Chest x-ray in the ER obtained which shows no acute cardiopulmonary disease. Head CT reveals no intracranial abnormalities. Left maxillary sinus disease. Patient will be admitted observation for UTI and seizure activity. I did speak with Dr. Kirkland physician at [place] who oversees her care at [facility]. He reports that telepsych was consulted and clonazepam was decreased very slowly and then tapered off due to recent decreased oral intake. - Related Data Allergies/Adverse Reactions: Allergies Allergy/AdvReac Type Severity Reaction Status Date / Time Penicillins Allergy Rash Verified 08/31/20 12:41 venom-honey bee Allergy Anaphylactic Verified 08/31/20 12:41 [bee venom (honey bee)] Shock Home Medications: Home Meds fluvoxaMINE Maleate [Fluvoxamine Maleate] 50 mg PO BID 11/20/14 [History] polyethylene glycoL 3350 [Miralax] 17 g PO BID 11/20/14 [History] Acetaminophen [Arthritis Pain Relief] 650 mg PO Q4HR PRN 11/06/18 [History] Bisacodyl [Gentle Laxative] 10 mg RC ASDIRECTED PRN 11/06/18 [History] Cholecalciferol (Vitamin D3) [Vitamin D3] 1,000 unit PO DAILY 11/06/18 [History] Docusate Sodium [Colace] 100 mg PO DAILY 11/06/18 [History] Multivitamin [Multivitamins] 1 each PO DAILY 11/06/18 [History] Furosemide [Lasix] 40 mg PO DAILY 08/31/20 [History] cephALEXin [Keflex] 500 mg PO Q12H #10 cap 09/01/20 [Rx] levETIRAcetam [Keppra] 500 mg PO BID #60 tablet 09/01/20 [Rx] Past Medical History Cardiovascular History: Reports: Cardiomyopathy, Heart Failure, Other (See Below) Other Cardiovascular History: tachycardia, hypotension Gastrointestinal History: Reports: Chronic Constipation Genitourinary History: Reports: Urinary Incontinence Musculoskeletal History: Reports: Osteoarthritis Other Musculoskeletal History: difficulty walking,muscle weakness,hip pain Neurological History: Reports: Speech Problems Psychiatric History: Reports: Anxiety, Bipolar, Mood Swings, PTSD Other Psychiatric History: insomnia, restless legs syndrome Endocrine/Metabolic History: Reports: Hypothyroidism Hematologic History: Reports: Anemia - Infectious Disease History Infectious Disease History: Reports: MRSA - Past Surgical History Cardiovascular Surgical History: Reports: None Social & Family History - Family History Family Medical History: No Pertinent Family History - Tobacco Use Tobacco Use Status *Q: Never Tobacco User - Caffeine Use Caffeine Use: Reports: None - Recreational Drug Use Recreational Drug Use: No H&P Review of Systems - Review of Systems: Review Of Systems: Unable To Obtain Reason Not Obtained: Patient nonverbal Exam - Exam Exam: See Below - Vital Signs Vital Signs: Last Vital Signs Temp 97.7 F 08/31/20 12:44 Pulse 99 08/31/20 14:45 Resp 16 08/31/20 14:45 BP 100/53 L 08/31/20 14:45 Pulse Ox 94 L 08/31/20 14:45 Weight: 47.3 kg - Exam General: Alert, Oriented HEENT: Conjunctiva Clear, Mucosa Moist & [place], Posterior Pharynx Clear Lungs: Clear to Auscultation, Normal Respiratory Effort Cardiovascular: Regular Rate, Regular Rhythm GI/Abdominal Exam: Normal Bowel Sounds, Non-Tender Back Exam: Normal Inspection, Full Range of Motion Extremities: Normal Inspection, Normal Range of Motion, Non-Tender Skin: Warm, Dry Neuro Extensive - Mental Status: Alert, Normal Mood/Affect Psychiatric: Alert, Normal Affect, Normal Mood Physical Exam Comments:: Patient lying on stretcher in the ER curled in position and then sporadically on curling and flailing arms and legs. Sister at bedside reporting this is normal for her. Reports she is nonambulatory but does sit in the wheelchair. Reports at times she does lash out hit and grab nursing staff. Patient nonverbal but cooperative at times when asked to sit up or move. - Patient Data Lab Results Last 24 hrs: Laboratory Results - last 24 hr 08/31/20 08/31/20 08/31/20 Range/Units 13:39 13:39 13:39 WBC 9.92 (4.0-11.0) K/uL RBC 4.15 L (4.30-5.90) M/uL Hgb 13.4 (12.0-16.0) g/dL Hct 39.3 (36.0-46.0) % MCV 94.7 (80.0-98.0) fL MCH 32.3 H (27.0-32.0) pg MCHC 34.1 (31.0-37.0) g/dL RDW Std Deviation 43.6 (28.0-62.0) fl RDW Coeff of John 13 (11.0-15.0) % Plt Count 176 (150-400) K/uL MPV 10.30 (7.40-12.00) fL Neut % (Auto) 87.7 H (48.0-80.0) % Lymph % (Auto) 6.9 L (16.0-40.0) % [place] % (Auto) 5.0 (0.0-15.0) % Eos % (Auto) 0.2 (0.0-7.0) % Baso % (Auto) 0.2 (0.0-1.5) % Neut # (Auto) 8.7 H (1.4-5.7) K/uL Lymph # (Auto) 0.7 (0.6-2.4) K/uL [place] # (Auto) 0.5 (0.0-0.8) K/uL Eos # (Auto) 0.0 (0.0-0.7) K/uL Baso # (Auto) 0.0 (0.0-0.1) K/uL Nucleated RBC % 0.0 /100WBC Nucleated RBCs # 0 K/uL Sodium 142 (136-145) mmol/L Potassium 3.5 (3.5-5.1) mmol/L Chloride 107 (98-107) mmol/L Carbon Dioxide 26.9 (21.0-32.0) mmol/L BUN 24 H (7.0-18.0) mg/dL Creatinine 0.7 (0.6-1.0) mg/dL Est Cr Clr Drug Dosing TNP Estimated GFR (MDRD) > 60.0 ml/min Glucose 115 H (74-106) mg/dL Lactic Acid 2.7 H* (0.4-2.0) mmol/L Calcium 8.9 (8.5-10.1) mg/dL Total Bilirubin 0.2 (0.2-1.0) mg/dL AST 36 (15-37) IU/L ALT 46 (14-63) IU/L Alkaline Phosphatase 66 (46-116) U/L Troponin I < 0.050 (0.000-0.056) ng/mL Total Protein 7.0 (6.4-8.2) g/dL Albumin 3.5 (3.4-5.0) g/dL Globulin 3.5 (2.6-4.0) g/dL Albumin/Globulin Ratio 1.0 (0.9-1.6) Urine Color Urine Appearance Urine pH (5.0-8.0) Ur Specific [place]ade (1.001-1.035) Urine Protein (NEGATIVE) mg/dL Urine Glucose (UA) (NEGATIVE) mg/dL Urine Ketones (NEGATIVE) mg/dL Urine Occult Blood (NEGATIVE) Urine Nitrite (NEGATIVE) Urine Bilirubin (NEGATIVE) Urine Urobilinogen (<2.0) EU/dL Ur Leukocyte Esterase (NEGATIVE) Urine RBC (0-2/HPF) Urine WBC (0-5/HPF) Ur Epithelial Cells (NONE-FEW) Urine Bacteria (NEGATIVE) 08/31/20 Range/Units 14:30 WBC (4.0-11.0) K/uL RBC (4.30-5.90) M/uL Hgb (12.0-16.0) g/dL Hct (36.0-46.0) % MCV (80.0-98.0) fL MCH (27.0-32.0) pg MCHC (31.0-37.0) g/dL RDW Std Deviation (28.0-62.0) fl RDW Coeff of John (11.0-15.0) % Plt Count (150-400) K/uL MPV (7.40-12.00) fL Neut % (Auto) (48.0-80.0) % Lymph % (Auto) (16.0-40.0) % [place] % (Auto) (0.0-15.0) % Eos % (Auto) (0.0-7.0) % Baso % (Auto) (0.0-1.5) % Neut # (Auto) (1.4-5.7) K/uL Lymph # (Auto) (0.6-2.4) K/uL [place] # (Auto) (0.0-0.8) K/uL Eos # (Auto) (0.0-0.7) K/uL Baso # (Auto) (0.0-0.1) K/uL Nucleated RBC % /100WBC Nucleated RBCs # K/uL Sodium (136-145) mmol/L Potassium (3.5-5.1) mmol/L Chloride (98-107) mmol/L Carbon Dioxide (21.0-32.0) mmol/L BUN (7.0-18.0) mg/dL Creatinine (0.6-1.0) mg/dL Est Cr Clr Drug Dosing Estimated GFR (MDRD) ml/min Glucose (74-106) mg/dL Lactic Acid (0.4-2.0) mmol/L Calcium (8.5-10.1) mg/dL Total Bilirubin (0.2-1.0) mg/dL AST (15-37) IU/L ALT (14-63) IU/L Alkaline Phosphatase (46-116) U/L Troponin I (0.000-0.056) ng/mL Total Protein (6.4-8.2) g/dL Albumin (3.4-5.0) g/dL Globulin (2.6-4.0) g/dL Albumin/Globulin Ratio (0.9-1.6) Urine Color YELLOW Urine Appearance CLEAR Urine pH 6.0 (5.0-8.0) Ur Specific [place] 1.025 (1.001-1.035) Urine Protein NEGATIVE (NEGATIVE) mg/dL Urine Glucose (UA) NEGATIVE (NEGATIVE) mg/dL Urine Ketones NEGATIVE (NEGATIVE) mg/dL Urine Occult Blood NEGATIVE (NEGATIVE) Urine Nitrite POSITIVE H (NEGATIVE) Urine Bilirubin NEGATIVE (NEGATIVE) Urine Urobilinogen 0.2 (<2.0) EU/dL Ur Leukocyte Esterase MODERATE H (NEGATIVE) Urine RBC 0-2 (0-2/HPF) Urine WBC 10-15 (0-5/HPF) Ur Epithelial Cells RARE (NONE-FEW) Urine Bacteria 3+ H (NEGATIVE) Result Diagrams: 09/01/20 05:25 09/01/20 05:25 Sepsis Event Note - Evaluation Sepsis Screening Result: No Definite Risk - Focused Exam Vital Signs: Vital Signs Temp Pulse Resp BP Pulse Ox 08/31/20 14:45 99 16 100/53 L 94 L 08/31/20 13:33 109 H 16 120/59 L 93 L 08/31/20 12:44 97.7 F 120 H 18 102/46 L 93 L - Problem List (1) Seizure SNOMED Code(s): 65376809 ICD Code: R56.9 - UNSPECIFIED CONVULSIONS Status: Suspected Current Visit: Yes (2) UTI (urinary tract infection) SNOMED Code(s): 72432648 ICD Code: N39.0 - URINARY TRACT INFECTION, SITE NOT SPECIFIED Status: Acute Current Visit: Yes Qualifiers: Urinary tract infection type: acute cystitis Hematuria presence: without hematuria Qualified Code(s): N30.00 - Acute cystitis without hematuria (3) Hypothyroidism SNOMED Code(s): 35389691 ICD Code: E03.9 - HYPOTHYROIDISM, UNSPECIFIED Status: Chronic Current Visit: No (4) Intellectual disability SNOMED Code(s): 125848191 ICD Code: F79 - UNSPECIFIED INTELLECTUAL DISABILITIES Status: Chronic Current Visit: No (5) Bipolar 1 disorder SNOMED Code(s): 819251097 ICD Code: F31.9 - BIPOLAR DISORDER, UNSPECIFIED Status: Chronic Current Visit: No (6) Tachycardia SNOMED Code(s): 2060513 ICD Code: R00.0 - TACHYCARDIA, UNSPECIFIED Status: Chronic Current Visit: Yes (7) Cardiomegaly SNOMED Code(s): 0468825 ICD Code: I51.7 - CARDIOMEGALY Status: Chronic Current Visit: Yes Problem List Initiated/Reviewed/Updated: Yes Orders Last 24hrs: Active Orders 24 hr Category Date Time Status Admission Status [Patient Status] [ADT] Stat ADT 08/31/20 15:11 Active Cardiac Monitoring [RC] . DIRECTED Care 08/31/20 12:48 Active Cardiac Monitoring [RC] . DIRECTED Care 08/31/20 15:11 Active EKG Documentation Completion [RC] STAT Care 08/31/20 12:48 Active B-TYPE NATRIURETIC PEPTIDE,BNP [CHEM] Stat Lab 08/31/20 15:49 Ordered CORONAVIRUS COVID-19 ANNAMARIA [MOLEC] Stat Lab 08/31/20 15:19 Received CULTURE URINE [MREF] Stat Lab 08/31/20 14:30 Received REFLEX LACTIC ACID YES OR NO [CHEM] Routine Lab 08/31/20 14:32 Received Sodium Chloride 0.9% [Normal Saline] 1,000 ml Med 08/31/20 15:49 Active IV STAT cefTRIAXone [Rocephin in Dextrose,Iso-Osm 1 GM/50 ML] 1 Med 08/31/20 15:46 Active gm Premix Bag 1 bag IV ONETIME Medication Orders Ceftriaxone Sodium/Dextrose 1 (gm/ Premix) 50 mls @ 100 mls/hr IV ONETIME ONE Stop: 08/31/20 16:15 Last Admin: 08/31/20 16:02 Dose: 100 mls/hr Documented by: MURREGINE Sodium Chloride (Normal Saline) 1,000 mls @ 125 mls/hr IV STAT ONE Stop: 08/31/20 23:48 Last Admin: 08/31/20 16:01 Dose: 125 mls/hr Documented by: MURREGINE Assessment/Plan Comment:: This 65-year-old female admitted with UTI and seizure-like activity 1. Seizure-like activity -Was recently tapered off of clonazepam -No history of seizures in the past -We will continue to monitor -Consider neurology consultation as an outpatient -Seizure precautions -Ativan as needed seizure - Start keppra 500 mg by mouth BID -Lactic acid elevated likely secondary to seizure activity 2. UTI -Continue Rocephin -Continue gentle IV fluids -Lactic acid elevated but this is likely secondary to seizure activity will repeat patient does not appear septic at this time 3. Hypothyroidism -Continue home medications 4. Bipolar disorder/intellectual disability -Continue home medications VTE prophylaxis: SCDs CODE STATUS: DNR/DNI confirmed with [facility] paperwork Dispo 1 to 2 days pending improvement.
[2020-08-31] MEDS ORDERED: Acetaminophen 325 MG Tab PO PRN (17:09)
[2020-08-31] MEDS ORDERED: Ondansetron 4 MG/2 ML SDV IVPUSH PRN (17:09)
[2020-08-31] MEDS ORDERED: LORazepam 2 MG/ML SDV IVPUSH PRN (17:13)
[2020-08-31] MEDS: Sodium Chloride 0.9% 1,000 ML IV SCH (19:15)
[2020-08-31] MEDS ORDERED: fluvoxaMINE 50 MG Tab PO SCH (21:00)
[2020-08-31] MEDS: levETIRAcetam 500 MG Tab PO SCH ×2 (21:05→21:08)
[2020-09-01] MEDS: Sodium Chloride 0.9% 1,000 ML IV SCH ×2 (00:06→01:43)
[2020-09-01 05:47] LABS: BLOOD UREA NITROGEN,BUN 15 mg/dL (7.0-18.0); CHLORIDE,CL 111 mmol/L (98-107); GLUCOSE RANDOM 75 mg/dL (74-106); SODIUM,NA 143 mmol/L (136-145)
[2020-09-01 09:44] VITALS: BP 92/57; PULSE 71
--- NOTE | 2020-09-01 09:48 | PCM.DCSUM1 ---
Discharge Summary - Hospital Course Brief History: This 65-year-old female with past medical history of intellectual disability, anxiety, bipolar disorder, hypothyroidism, tachycardia, cardiomegaly and anemia presented to the ER from [facility] via ambulance with concerns of seizure-like activity. Patient nonverbal and unable to provide HPI, sister at bedside who knows only report from [place]. Reports that she has been otherwise doing well and recently they had tapered her off of clonazepam. Per reports from [place] patient had 2 witnessed seizures the first 1 is about 15 seconds reported that she was awake but shaking in the second started about 15 minutes after the first lasted about 1 minute and her whole body was shaking but very stiff and her eyes rolled back in her head. Patient was noted to have lower blood pressures and nursing staff opted to transfer her to the ER for further evaluation. Patient was noted to be postictal in the ER and woke up approximately 20 minutes later and she has been awake and alert continues to be nonverbal but family at bedside reports she is near normal. In the ER no leukocytosis noted WBC 9000. Sodium 142 potassium 3.5 BUN 24 creatinine 0.7. Glucose 115 lactic acid elevated at 2.7. Troponin negative UA positive nitrite positive leukocyte esterase WBCs 10-15 bacteria 3+. Vital signs in the ER shows tachycardia with hypotension initially of 102/46. After IV fluids heart rate dropped to 109 blood pressure 120/59 93% on room air. She was given 1 L IV fluids urine culture pending. Chest x-ray in the ER obtained which shows no acute cardiopulmonary disease. Head CT reveals no intracranial abnormalities. Left maxillary sinus disease. Patient will be admitted observation for UTI and seizure activity. Diagnosis: Stroke: No - Discharge Data Discharge Date: 09/01/20 Discharge Disposition: DC/Tfer to [facility] 03 Condition: Good - Referral to Home Health Primary Care Physician: PCP None - Discharge Diagnosis/Problem(s) (1) Seizure SNOMED Code(s): 34048266 ICD Code: R56.9 - UNSPECIFIED CONVULSIONS Status: Suspected Current Visit: Yes (2) UTI (urinary tract infection) SNOMED Code(s): 45406038 ICD Code: N39.0 - URINARY TRACT INFECTION, SITE NOT SPECIFIED Status: Acute Current Visit: Yes Qualifiers: Urinary tract infection type: acute cystitis Hematuria presence: without hematuria Qualified Code(s): N30.00 - Acute cystitis without hematuria (3) Hypothyroidism SNOMED Code(s): 10676922 ICD Code: E03.9 - HYPOTHYROIDISM, UNSPECIFIED Status: Chronic Current Visit: No (4) Intellectual disability SNOMED Code(s): 843449006 ICD Code: F79 - UNSPECIFIED INTELLECTUAL DISABILITIES Status: Chronic Current Visit: No (5) Bipolar 1 disorder SNOMED Code(s): 637353131 ICD Code: F31.9 - BIPOLAR DISORDER, UNSPECIFIED Status: Chronic Current Visit: No (6) Tachycardia SNOMED Code(s): 3961725 ICD Code: R00.0 - TACHYCARDIA, UNSPECIFIED Status: Chronic Current Visit: Yes (7) Cardiomegaly SNOMED Code(s): 3691599 ICD Code: I51.7 - CARDIOMEGALY Status: Chronic Current Visit: Yes - Patient Summary/Data Hospital Course: Admission Diagnoses Seizure UTI Discharge Diagnoses Seizure UTI Other PMH Hx anoxic brain injury Intellectual disability PTSD Bipolar disorder Latanya was admitted secondary to witnessed seizure activity at [facility] x 2. SHe was brought to the ED, head CT negative. She was found to post- ictal for approximately 20-30 minutes then slowly more and more arousable. Sister at bedside. She also was found to have UTI and started on Rocephin. Recently patient was slowly tapered of Clonazepam with guidance from [facility] at [facility] and has since been off of it x 2 weeks. Patient monitored overnight with no seizure activity. Started on Keppra 500 mg by mouth BID. Today she is at baseline and labwork stable. She will be discharged home on Keppra 500 mg BID and Keflex 500 mg Q12 x 5 days for UTI. No further changes to home medications. Return to Clinic or ER if concerns should arise. Sister at bedside updated with plan and is agreeable. - Patient Instructions Diet, Other: Level 2 dysphagia, nectar consistency Activity: As Tolerated Driving: Do Not Drive Showering/Bathing: May Shower Notify Provider of: Fever, Increased Pain, Swelling and Redness, Drainage, Nausea and/or Vomiting Other/Special Instructions: PT/OT to evaluate and treat - Discharge Plan *PRESCRIPTION DRUG MONITORING PROGRAM REVIEWED*: Not Applicable *COPY OF PRESCRIPTION DRUG MONITORING REPORT IN PATIENT [place]: Not Applicable Prescriptions/Med Rec: cephALEXin [Keflex] 500 mg PO Q12H #10 cap levETIRAcetam [Keppra] 500 mg PO BID #60 tablet Home Medications: Home Meds fluvoxaMINE Maleate [Fluvoxamine Maleate] 50 mg PO BID 11/20/14 [History] polyethylene glycoL 3350 [Miralax] 17 g PO BID 11/20/14 [History] Acetaminophen [Arthritis Pain Relief] 650 mg PO Q4HR PRN 11/06/18 [History] Bisacodyl [Gentle Laxative] 10 mg RC ASDIRECTED PRN 11/06/18 [History] Cholecalciferol (Vitamin D3) [Vitamin D3] 1,000 unit PO DAILY 11/06/18 [History] Docusate Sodium [Colace] 100 mg PO DAILY 11/06/18 [History] Multivitamin [Multivitamins] 1 each PO DAILY 11/06/18 [History] Furosemide [Lasix] 40 mg PO DAILY 08/31/20 [History] cephALEXin [Keflex] 500 mg PO Q12H #10 cap 09/01/20 [Rx] levETIRAcetam [Keppra] 500 mg PO BID #60 tablet 09/01/20 [Rx] Oxygen Therapy Mode: Room Air Referrals: Twila Llanos MD [Physician] - Juan Akers MD [Ordering Only Provider] - - Discharge Summary/Plan Comment DC Time >30 min.: No - Patient Data Vitals - Most Recent: Last Vital Signs Temp 96.4 F L 09/01/20 08:00 Pulse 71 09/01/20 08:00 Resp 20 09/01/20 08:00 BP 92/57 L 09/01/20 08:00 Pulse Ox 91 L 09/01/20 08:00 Weight - Most Recent: 47.491 kg I&O - Last 24 hours: Intake & Output 08/31/20 09/01/20 09/01/20 22:59 06:59 14:59 Intake Total 1181 Output Total 0 Balance 1181 Lab Results - Last 24 hrs: Laboratory Results - last 24 hr 08/31/20 08/31/20 08/31/20 Range/Units 13:39 13:39 13:39 WBC 9.92 (4.0-11.0) K/uL RBC 4.15 L (4.30-5.90) M/uL Hgb 13.4 (12.0-16.0) g/dL Hct 39.3 (36.0-46.0) % MCV 94.7 (80.0-98.0) fL MCH 32.3 H (27.0-32.0) pg MCHC 34.1 (31.0-37.0) g/dL RDW Std Deviation 43.6 (28.0-62.0) fl RDW Coeff of John 13 (11.0-15.0) % Plt Count 176 (150-400) K/uL MPV 10.30 (7.40-12.00) fL Neut % (Auto) 87.7 H (48.0-80.0) % Lymph % (Auto) 6.9 L (16.0-40.0) % [place] % (Auto) 5.0 (0.0-15.0) % Eos % (Auto) 0.2 (0.0-7.0) % Baso % (Auto) 0.2 (0.0-1.5) % Neut # (Auto) 8.7 H (1.4-5.7) K/uL Lymph # (Auto) 0.7 (0.6-2.4) K/uL [place] # (Auto) 0.5 (0.0-0.8) K/uL Eos # (Auto) 0.0 (0.0-0.7) K/uL Baso # (Auto) 0.0 (0.0-0.1) K/uL Nucleated RBC % 0.0 /100WBC Nucleated RBCs # 0 K/uL Sodium 142 (136-145) mmol/L Potassium 3.5 (3.5-5.1) mmol/L Chloride 107 (98-107) mmol/L Carbon Dioxide 26.9 (21.0-32.0) mmol/L BUN 24 H (7.0-18.0) mg/dL Creatinine 0.7 (0.6-1.0) mg/dL Est Cr Clr Drug Dosing TNP Estimated GFR (MDRD) > 60.0 ml/min Glucose 115 H (74-106) mg/dL Lactic Acid 2.7 H* (0.4-2.0) mmol/L Calcium 8.9 (8.5-10.1) mg/dL Total Bilirubin 0.2 (0.2-1.0) mg/dL AST 36 (15-37) IU/L ALT 46 (14-63) IU/L Alkaline Phosphatase 66 (46-116) U/L Troponin I < 0.050 (0.000-0.056) ng/mL B-Natriuretic Peptide (<100) PG/ML Total Protein 7.0 (6.4-8.2) g/dL Albumin 3.5 (3.4-5.0) g/dL Globulin 3.5 (2.6-4.0) g/dL Albumin/Globulin Ratio 1.0 (0.9-1.6) Urine Color Urine Appearance Urine pH (5.0-8.0) Ur Specific [place] (1.001-1.035) Urine Protein (NEGATIVE) mg/dL Urine Glucose (UA) (NEGATIVE) mg/dL Urine Ketones (NEGATIVE) mg/dL Urine Occult Blood (NEGATIVE) Urine Nitrite (NEGATIVE) Urine Bilirubin (NEGATIVE) Urine Urobilinogen (<2.0) EU/dL Ur Leukocyte Esterase (NEGATIVE) Urine RBC (0-2/HPF) Urine WBC (0-5/HPF) Ur Epithelial Cells (NONE-FEW) Urine Bacteria (NEGATIVE) SARS-CoV-2 RNA ([place]) (NEGATIVE) 08/31/20 08/31/20 08/31/20 Range/Units 13:39 14:30 15:19 WBC (4.0-11.0) K/uL RBC (4.30-5.90) M/uL Hgb (12.0-16.0) g/dL Hct (36.0-46.0) % MCV (80.0-98.0) fL MCH (27.0-32.0) pg MCHC (31.0-37.0) g/dL RDW Std Deviation (28.0-62.0) fl RDW Coeff of John (11.0-15.0) % Plt Count (150-400) K/uL MPV (7.40-12.00) fL Neut % (Auto) (48.0-80.0) % Lymph % (Auto) (16.0-40.0) % [place] % (Auto) (0.0-15.0) % Eos % (Auto) (0.0-7.0) % Baso % (Auto) (0.0-1.5) % Neut # (Auto) (1.4-5.7) K/uL Lymph # (Auto) (0.6-2.4) K/uL [place] # (Auto) (0.0-0.8) K/uL Eos # (Auto) (0.0-0.7) K/uL Baso # (Auto) (0.0-0.1) K/uL Nucleated RBC % /100WBC Nucleated RBCs # K/uL Sodium (136-145) mmol/L Potassium (3.5-5.1) mmol/L Chloride (98-107) mmol/L Carbon Dioxide (21.0-32.0) mmol/L BUN (7.0-18.0) mg/dL Creatinine (0.6-1.0) mg/dL Est Cr Clr Drug Dosing Estimated GFR (MDRD) ml/min Glucose (74-106) mg/dL Lactic Acid (0.4-2.0) mmol/L Calcium (8.5-10.1) mg/dL Total Bilirubin (0.2-1.0) mg/dL AST (15-37) IU/L ALT (14-63) IU/L Alkaline Phosphatase (46-116) U/L Troponin I (0.000-0.056) ng/mL B-Natriuretic Peptide 19 (<100) PG/ML Total Protein (6.4-8.2) g/dL Albumin (3.4-5.0) g/dL Globulin (2.6-4.0) g/dL Albumin/Globulin Ratio (0.9-1.6) Urine Color YELLOW Urine Appearance CLEAR Urine pH 6.0 (5.0-8.0) Ur Specific [place] 1.025 (1.001-1.035) Urine Protein NEGATIVE (NEGATIVE) mg/dL Urine Glucose (UA) NEGATIVE (NEGATIVE) mg/dL Urine Ketones NEGATIVE (NEGATIVE) mg/dL Urine Occult Blood NEGATIVE (NEGATIVE) Urine Nitrite POSITIVE H (NEGATIVE) Urine Bilirubin NEGATIVE (NEGATIVE) Urine Urobilinogen 0.2 (<2.0) EU/dL Ur Leukocyte Esterase MODERATE H (NEGATIVE) Urine RBC 0-2 (0-2/HPF) Urine WBC 10-15 (0-5/HPF) Ur Epithelial Cells RARE (NONE-FEW) Urine Bacteria 3+ H (NEGATIVE) SARS-CoV-2 RNA ([place]) NEGATIVE (NEGATIVE) 08/31/20 09/01/20 09/01/20 Range/Units 18:56 05:25 05:25 WBC 5.92 (4.0-11.0) K/uL RBC 3.74 L (4.30-5.90) M/uL Hgb 12.0 (12.0-16.0) g/dL Hct 35.8 L (36.0-46.0) % MCV 95.7 (80.0-98.0) fL MCH 32.1 H (27.0-32.0) pg MCHC 33.5 (31.0-37.0) g/dL RDW Std Deviation 44.0 (28.0-62.0) fl RDW Coeff of John 13 (11.0-15.0) % Plt Count 143 L (150-400) K/uL MPV 10.30 (7.40-12.00) fL Neut % (Auto) 47.0 L (48.0-80.0) % Lymph % (Auto) 40.5 H (16.0-40.0) % [place] % (Auto) 8.8 (0.0-15.0) % Eos % (Auto) 3.2 (0.0-7.0) % Baso % (Auto) 0.5 (0.0-1.5) % Neut # (Auto) 2.8 (1.4-5.7) K/uL Lymph # (Auto) 2.4 (0.6-2.4) K/uL [place] # (Auto) 0.5 (0.0-0.8) K/uL Eos # (Auto) 0.2 (0.0-0.7) K/uL Baso # (Auto) 0.0 (0.0-0.1) K/uL Nucleated RBC % 0.0 /100WBC Nucleated RBCs # 0 K/uL Sodium 143 (136-145) mmol/L Potassium 4.0 (3.5-5.1) mmol/L Chloride 111 H (98-107) mmol/L Carbon Dioxide 24.0 (21.0-32.0) mmol/L BUN 15 (7.0-18.0) mg/dL Creatinine 0.5 L (0.6-1.0) mg/dL Est Cr Clr Drug Dosing TNP Estimated GFR (MDRD) > 60.0 ml/min Glucose 75 (74-106) mg/dL Lactic Acid 0.7 (0.4-2.0) mmol/L Calcium 8.0 L (8.5-10.1) mg/dL Total Bilirubin (0.2-1.0) mg/dL AST (15-37) IU/L ALT (14-63) IU/L Alkaline Phosphatase (46-116) U/L Troponin I (0.000-0.056) ng/mL B-Natriuretic Peptide (<100) PG/ML Total Protein (6.4-8.2) g/dL Albumin (3.4-5.0) g/dL Globulin (2.6-4.0) g/dL Albumin/Globulin Ratio (0.9-1.6) Urine Color Urine Appearance Urine pH (5.0-8.0) Ur Specific [place] (1.001-1.035) Urine Protein (NEGATIVE) mg/dL Urine Glucose (UA) (NEGATIVE) mg/dL Urine Ketones (NEGATIVE) mg/dL Urine Occult Blood (NEGATIVE) Urine Nitrite (NEGATIVE) Urine Bilirubin (NEGATIVE) Urine Urobilinogen (<2.0) EU/dL Ur Leukocyte Esterase (NEGATIVE) Urine RBC (0-2/HPF) Urine WBC (0-5/HPF) Ur Epithelial Cells (NONE-FEW) Urine Bacteria (NEGATIVE) SARS-CoV-2 RNA ([place]) (NEGATIVE) Med Orders - Current: Current Medications Acetaminophen (Acetaminophen 325 Mg Tab) 650 mg PO Q4H PRN PRN Reason: Pain (Mild 1-3)/fever Fluvoxamine Maleate (Fluvoxamine 50 Mg Tab) 50 mg PO BID [facility] Last Admin: 08/31/20 21:08 Dose: 50 mg Documented by: Sodium Chloride (Normal Saline) 1,000 mls @ 125 mls/hr IV Q8H [facility] Last Admin: 09/01/20 01:43 Dose: Not Given Documented by: Ceftriaxone Sodium/Dextrose 1 (gm/ Premix) 50 mls @ 100 mls/hr IV Q24H [facility] Levetiracetam (Levetiracetam 500 Mg Tab) 500 mg PO BID [facility] Last Admin: 08/31/20 21:08 Dose: Not Given Documented by: Lorazepam (Lorazepam 2 Mg/Ml Sdv) 1 mg IVPUSH ASDIRECTED PRN PRN Reason: Seizures Ondansetron HCl (Ondansetron 4 Mg/2 Ml Sdv) 4 mg IVPUSH Q4H PRN PRN Reason: Nausea Discontinued Medications Sodium Chloride (Normal Saline) 1,000 mls @ 999 mls/hr IV STAT ONE Stop: 08/31/20 13:46 Last Admin: 08/31/20 13:29 Dose: 999 mls/hr Documented by: Ceftriaxone Sodium/Dextrose 1 (gm/ Premix) 50 mls @ 100 mls/hr IV ONETIME ONE Stop: 08/31/20 16:15 Last Admin: 08/31/20 16:02 Dose: 100 mls/hr Documented by: Sodium Chloride (Normal Saline) 1,000 mls @ 125 mls/hr IV STAT ONE Stop: 08/31/20 23:48 Last Admin: 08/31/20 16:01 Dose: 125 mls/hr Documented by:
[2020-09-01] MEDS ORDERED: cefTRIAXone 1 GM in Premix Bag 1 BAG IV SCH (15:00)
== END 2020-09-01 11:50 ==
LOC: MW.ED 12:35 → MW.MS 15:11 → UNDOADMOB 17:02 → MW.MS 17:02
PROVIDERS: ADMIT Internal Medicine; ATTEND Internal Medicine
DX: R56.9 Unspecified convulsions (principal); N30.00 Acute cystitis without hematuria; E03.9 Hypothyroidism, unspecified; F79 Unspecified intellectual disabilities; F31.9 Bipolar disorder, unspecified; R00.0 Tachycardia, unspecified; I51.7 Cardiomegaly; F43.10 Post-traumatic stress disorder, unspecified; D64.9 Anemia, unspecified; I50.9 Heart failure, unspecified; I95.9 Hypotension, unspecified; M19.90 Unspecified osteoarthritis, unspecified site; Z20.822 Contact with and (suspected) exposure to COVID-19; Z88.0 Allergy status to penicillin; Z91.030 Bee allergy status; Z79.890 Hormone replacement therapy
CPT/HCPCS: 36415; 70450; 71045; 80048; 80053; 81001; 83605; 83880; 84484; 85025; 87086; 93005; 96365; 99285; A9270; J0696; J7030; U0002; 87088; 87186; 93010; 99284

== ENCOUNTER 2020-09-06 11:07 | Emergency (ER) | payer MEDICARE, MEDICAID ==
--- NOTE | 2020-09-06 11:18 | EDM.PDOC ---
ED HPI GENERAL MEDICAL PROBLEM - General Chief Complaint: Neurological Problem Stated Complaint: SEIZURES Time Seen by Provider: 09/06/20 11:10 Source of Information: Reports: EMS, Snf Records History Limitations: Reports: Physical Impairment - History of Present Illness INITIAL COMMENTS - FREE TEXT/NARRATIVE: Patient is a 65-year-old female who is nonverbal at baseline was sent in from senior living for seizures. Patient will start having seizures last week and was admitted and started on Keppra 500 mg twice daily. Per staff she had about 4 seizures lasting less than 30 seconds and had one seizure last about 3 minutes. EMS gave her 2 mg of Versed at. Patient has been sleepy since that time. Before this patient been taking her medication as prescribed and had no signs of any infection fever chills or other change in baseline per senior living. - Related Data Allergies Allergy/AdvReac Type Severity Reaction Status Date / Time Penicillins Allergy Rash Verified 09/06/20 11:29 venom-honey bee Allergy Anaphylactic Verified 09/06/20 11:29 [bee venom (honey bee)] Shock Home Meds: Home Meds fluvoxaMINE Maleate [Fluvoxamine Maleate] 50 mg PO BID 11/20/14 [History] polyethylene glycoL 3350 [Miralax] 17 g PO BID 11/20/14 [History] Acetaminophen [Arthritis Pain Relief] 650 mg PO Q4HR PRN 11/06/18 [History] Bisacodyl [Gentle Laxative] 10 mg RC ASDIRECTED PRN 11/06/18 [History] Cholecalciferol (Vitamin D3) [Vitamin D3] 1,000 unit PO DAILY 11/06/18 [History] Docusate Sodium [Colace] 100 mg PO DAILY 11/06/18 [History] Multivitamin [Multivitamins] 1 each PO DAILY 11/06/18 [History] Furosemide [Lasix] 40 mg PO DAILY 08/31/20 [History] cephALEXin [Keflex] 500 mg PO Q12H #10 cap 09/01/20 [Rx] levETIRAcetam [Keppra] 500 mg PO BID #60 tablet 09/01/20 [Rx] Nitrofurantoin Monohyd/M-Cryst [Macrobid 100 mg Capsule] 100 mg PO BID 5 Days #10 capsule 09/06/20 [Rx] Past Medical History Cardiovascular History: Reports: Cardiomyopathy, Heart Failure, Other (See Below) Other Cardiovascular History: tachycardia, hypotension Gastrointestinal History: Reports: Chronic Constipation Genitourinary History: Reports: Urinary Incontinence Musculoskeletal History: Reports: Osteoarthritis Other Musculoskeletal History: difficulty walking,muscle weakness,hip pain Neurological History: Reports: Speech Problems Psychiatric History: Reports: Anxiety, Bipolar, Mood Swings, PTSD Other Psychiatric History: insomnia, restless legs syndrome Endocrine/Metabolic History: Reports: Hypothyroidism Hematologic History: Reports: Anemia - Infectious Disease History Infectious Disease History: Reports: MRSA - Past Surgical History Cardiovascular Surgical History: Reports: None Social & Family History - Family History Family Medical History: No Pertinent Family History - Caffeine Use Caffeine Use: Reports: None ED ROS GENERAL - Review of Systems Review Of Systems: Unable To Obtain Reason Not Obtained: Nonverbal at baseline sleepy from first that - Physical Exam Exam: See Below Exam Limited By: Other (Nonverbal at baseline also sleepy from first) Eye Exam: Bilateral Eye: PERRL Respiratory/Chest: No Respiratory Distress, Lungs Clear Cardiovascular: Normal Peripheral Pulses, Regular Rate, Rhythm, No Edema GI/Abdominal: Normal Bowel Sounds, Soft, Non-Tender Neuro Exam (Abbreviated): Unresponsive (Nonverbal and also sedated from Versed) Extremities: Normal Inspection, Normal Range of Motion #1 Interpretation EKG Date: 09/06/20 Time: 11:06 Rhythm: Other (sinus tachy) Rate (Beats/Min): 116 ST-T: Normal Course - Vital Signs Last Recorded V/S: Last Vital Signs Temp 98.2 F 09/06/20 13:48 Pulse 108 H 09/06/20 13:48 Resp 18 09/06/20 13:48 BP 116/61 09/06/20 13:48 Pulse Ox 97 09/06/20 13:48 - Orders/Labs/Meds Orders: Active Orders 24 hr Category Date Time Status EKG 12 Lead [EKG Documentation Completion] [RC] STAT Care 09/06/20 13:03 Active Labs: Laboratory Tests 09/06/20 09/06/20 09/06/20 Range/Units 11:12 11:12 11:34 WBC 14.07 H (4.0-11.0) K/uL RBC 4.51 (4.30-5.90) M/uL Hgb 14.7 (12.0-16.0) g/dL Hct 44.2 (36.0-46.0) % MCV 98.0 (80.0-98.0) fL MCH 32.6 H (27.0-32.0) pg MCHC 33.3 (31.0-37.0) g/dL RDW Std Deviation 45.0 (28.0-62.0) fl RDW Coeff of John 13 (11.0-15.0) % Plt Count 285 (150-400) K/uL MPV 10.30 (7.40-12.00) fL Neut % (Auto) 70.5 (48.0-80.0) % Lymph % (Auto) 24.0 (16.0-40.0) % [place] % (Auto) 3.8 (0.0-15.0) % Eos % (Auto) 1.4 (0.0-7.0) % Baso % (Auto) 0.3 (0.0-1.5) % Neut # (Auto) 9.9 H (1.4-5.7) K/uL Lymph # (Auto) 3.4 H (0.6-2.4) K/uL [place] # (Auto) 0.5 (0.0-0.8) K/uL Eos # (Auto) 0.2 (0.0-0.7) K/uL Baso # (Auto) 0.0 (0.0-0.1) K/uL Nucleated RBC % 0.0 /100WBC Nucleated RBCs # 0 K/uL Sodium 143 (136-145) mmol/L Potassium 3.3 L (3.5-5.1) mmol/L Chloride 104 (98-107) mmol/L Carbon Dioxide 22.0 (21.0-32.0) mmol/L BUN 17 (7.0-18.0) mg/dL Creatinine 1.0 (0.6-1.0) mg/dL Est Cr Clr Drug Dosing 42.41 mL/min Estimated GFR (MDRD) 55.8 ml/min Glucose 198 H (74-106) mg/dL Calcium 8.9 (8.5-10.1) mg/dL Phosphorus 5.3 H (2.6-4.7) mg/dL Magnesium 2.3 (1.8-2.4) mg/dL Total Bilirubin 0.3 (0.2-1.0) mg/dL AST 40 H (15-37) IU/L ALT 64 H (14-63) IU/L Alkaline Phosphatase 92 (46-116) U/L Creatine Kinase 68 (26-308) U/L Total Protein 7.8 (6.4-8.2) g/dL Albumin 3.9 (3.4-5.0) g/dL Globulin 3.9 (2.6-4.0) g/dL Albumin/Globulin Ratio 1.0 (0.9-1.6) Lipase 287 (73-393) U/L Urine Color YELLOW Urine Appearance CLEAR Urine pH 6.0 (5.0-8.0) Ur Specific [place] 1.025 (1.001-1.035) Urine Protein 30 H (NEGATIVE) mg/dL Urine Glucose (UA) NEGATIVE (NEGATIVE) mg/dL Urine Ketones NEGATIVE (NEGATIVE) mg/dL Urine Occult Blood TRACE-INTACT H (NEGATIVE) Urine Nitrite POSITIVE H (NEGATIVE) Urine Bilirubin NEGATIVE (NEGATIVE) Urine Urobilinogen 0.2 (<2.0) EU/dL Ur Leukocyte Esterase SMALL H (NEGATIVE) Urine RBC 0-2 (0-2/HPF) Urine WBC 5-10 (0-5/HPF) Ur Epithelial Cells FEW (NONE-FEW) Urine Bacteria 2+ H (NEGATIVE) Meds: Medications Discontinued Medications Generic Name Dose Route Start Last Admin Trade Name Jaime PRN Reason Stop Dose Admin Levetiracetam 1,000 mg/ 110 mls @ 440 mls/hr 09/06/20 13:05 09/06/20 13:10 Dextrose/Water IV 09/06/20 13:19 440 mls/hr NOW STA Administration Nitrofurantoin Macrocrystals 100 mg 09/06/20 12:31 09/06/20 13:06 Nitrofurantoin Monohydrate/Macrocrystalline 100 Mg Cap PO 09/06/20 12:32 Not Given ONETIME ONE - Re-Assessments/Exams Free Text/Narrative Re-Assessment/Exam: 09/06/20 13:11 We were able to speak to [facility] about patient. Difficulty give patient her pills here but they states they would mess up and put into food. Patient previous urine show E. coli that is sensitive to Macrobid she was sent home on Levaquin which is antibiotic to Macrobid. We will also load patient with Keppra here. Patient needs to be follow-up and seen by neurology to have her medication adjusted. So there was no given patient appointment this month. Departure - Departure Time of Disposition: 13:58 Disposition: Home, Self-Care 01 Condition: Good Clinical Impression: Seizure UTI (urinary tract infection) Qualifiers: Urinary tract infection type: acute cystitis Hematuria presence: without hematuria Qualified Code(s): N30.00 - Acute cystitis without hematuria - Discharge Information *PRESCRIPTION DRUG MONITORING PROGRAM REVIEWED*: Not Applicable *COPY OF PRESCRIPTION DRUG MONITORING REPORT IN PATIENT [place]: Not Applicable Prescriptions: Nitrofurantoin Monohyd/M-Cryst [Macrobid 100 mg Capsule] 100 mg PO BID 5 Days #10 capsule Instructions: Non-Epileptic Seizures, Adult Referrals: PCP,Unknown [Primary Care Provider] - Forms: ED Department Discharge Additional Instructions: The following information is given to patients seen in the emergency department who are being discharged to home. This information is to outline your options for follow-up care. We provide all patients seen in our emergency department with a follow-up referral. The need for follow-up, as well as the timing and circumstances, are variable depending upon the specifics of your emergency department visit. If you don't have a primary care physician on staff, we will provide you with a referral. We always advise you to contact your personal physician following an emergency department visit to inform them of the circumstance of the visit and for follow-up with them and/or the need for any referrals to a consulting specialist. The emergency department will also refer you to a specialist when appropriate. This referral assures that you have the opportunity for follow-up care with a specialist. All of these measure are taken in an effort to provide you with optimal care, which includes your follow-up. Under all circumstances we always encourage you to contact your private physician who remains a resource for coordinating your care. When calling for follow-up care, please make the office aware that this follow-up is from your recent emergency room visit. If for any reason you are refused follow-up, please contact the [facility] Emergency Department at and asked to speak to the emergency department charge nurse. Please follow up with your primary care physician. If you do not have a primary care physician, see below: [facility] - Neurology Professional Building [address] [place] [address], [address] [place] [address] Patient was seen today for seizures. Patient is not had any seizures in the ED. She was found to have a UTI last time she was here but her cultures are growing a bacteria that is not sensitive to the medication was sent home with it. We will switch the medication to Macrobid for her. She will need to be seen by a neurologist to have her medications continue to be adjusted. Number above is she can reach out to neurologist here to obtain an appointment. If she has any other concerning signs or symptoms please return to the ED. Sepsis Event Note (ED) - Focused Exam Vital Signs: Vital Signs Temp Pulse Resp BP Pulse Ox 09/06/20 13:48 98.2 F 108 H 18 116/61 97 09/06/20 13:30 110 H 18 112/66 98 09/06/20 13:00 108 H 16 117/58 L 96 09/06/20 12:30 98.4 F 105 H 16 105/62 97 09/06/20 12:00 113 H 20 100/63 98 09/06/20 11:30 114 H 18 122/54 L 98 09/06/20 11:18 97.4 F 118 H 16 120/60 96 - My Orders Last 24 Hours: My Active Orders 09/06/20 13:03 EKG 12 Lead [EKG Documentation Completion] [RC] STAT - Assessment/Plan Last 24 Hours: My Active Orders 09/06/20 13:03 EKG 12 Lead [EKG Documentation Completion] [RC] STAT Plan: Patient is a 65-year-old female who presents today for seizures. Patient started having seizures last week and was started on Keppra. Patient had no signs of infection will obtain basic labs with electrolytes and likely will adjust patient seizure medication.
[2020-09-06 11:50] LABS: POTASSIUM,K 3.3 mmol/L (3.5-5.1)
[2020-09-06] MEDS: Nitrofurantoin Monohydrate/Macrocrystalline 100 MG Cap PO ONE ×2 (12:43→13:06)
[2020-09-06 14:49] VITALS: BP 117/76; PULSE 102
== END 2020-09-06 14:49 | disposition home or self-care (01) ==
LOC: MW.ED 11:07
DX: R56.9 Unspecified convulsions (principal); N30.00 Acute cystitis without hematuria; I10 Essential (primary) hypertension; E03.9 Hypothyroidism, unspecified; Z79.899 Other long term (current) drug therapy; Z88.0 Allergy status to penicillin; Z91.030 Bee allergy status
CPT/HCPCS: 36415; 80053; 81001; 82550; 83690; 83735; 84100; 85025; 93005; 96365; 99285; J1953; A9270-GY

== ENCOUNTER 2022-08-03 16:53 | Emergency (ER) | payer MEDICARE, MEDICAID ==
[2022-08-03] MEDS ORDERED: Sodium Chloride 0.9% 10 ML Syringe FLUSH PRN (17:04)
[2022-08-03] MEDS ORDERED: Sodium Chloride 0.9% 2.5 ML Syringe FLUSH PRN (17:04)
[2022-08-03] MEDS ORDERED: Sodium Chloride 0.9% 500 ML IV ONE (17:04)
[2022-08-03] MEDS ORDERED: Cefepime 2 GM in Sodium Chloride 0.9% 50 ML IV ONE (17:20)
[2022-08-03 17:30] LABS: APPEARANCE,URINE CLOUDY; BILIRUBIN,URINE NEGATIVE (NEGATIVE); COLOR,URINE YELLOW; GLUCOSE,URINE NEGATIVE (NEGATIVE); KETONES,URINE NEGATIVE (NEGATIVE); LEUKOCYTE ESTERASE,URINE SMALL (NEGATIVE); NITRITE,URINE NEGATIVE (NEGATIVE); OCCULT BLOOD,URINE NEGATIVE (NEGATIVE); PROTEIN,URINE NEGATIVE (NEGATIVE); UROBILINOGEN,URINE 0.2 EU/dL (<2.0)
[2022-08-03 17:50] LABS: BACTERIA,URINE MANY (NEGATIVE); EPITHELIAL CELLS,URINE FEW (NONE-FEW); SQUAMOUS EPITHELIAL CELLS,UR FEW
[2022-08-03 18:15] LABS: A/G RATIO 0.9 (0.9-1.6); ALANINE AMINOTRANSFERASE,ALT 41 IU/L (14-63); ALBUMIN 3.4 g/dL (3.4-5.0); ALKALINE PHOSPHATASE 77 U/L (46-116); ASPARTATE AMNIOTRANSFERASE,AST 37 IU/L (15-37); BILIRUBIN TOTAL 0.2 mg/dL (0.2-1.0); BLOOD UREA NITROGEN,BUN 19 mg/dL (7.0-18.0); CALCIUM 9.5 mg/dL (8.5-10.1); CARBON DIOXIDE,CO2 28.3 mmol/L (21.0-32.0); CHLORIDE,CL 105 mmol/L (98-107); CREATINE KINASE,CK 44 U/L (26-308); CREATININE 0.7 mg/dL (0.6-1.0); GLUCOSE RANDOM 79 mg/dL (74-106); LIPASE 219 U/L (73-393); MAGNESIUM 2.3 mg/dL (1.8-2.4); POTASSIUM,K 4.1 mmol/L (3.5-5.1); PROTEIN TOTAL,TP 7.4 g/dL (6.4-8.2); SODIUM,NA 142 mmol/L (136-145)
[2022-08-03 18:17] LABS: BASOPHILS PERCENT AUTO 0.5 % (0.0-1.5); EOSINOPHILS ABSOLUTE AUTO 0.1 K/uL (0.0-0.7); EOSINOPHILS PERCENT AUTO 3.4 % (0.0-7.0); HEMATOCRIT 38.8 % (36.0-46.0); HEMOGLOBIN 13.1 g/dL (12.0-16.0); LYMPHOCYTES ABSOLUTE AUTO 1.3 K/uL (0.6-2.4); MEAN CORPUSCULAR HEMOGLOBIN 32.8 pg (27.0-32.0); MEAN CORPUSCULAR HGB CONC 33.8 g/dL (31.0-37.0); MONOCYTES ABSOLUTE AUTO 0.2 K/uL (0.0-0.8); MONOCYTES PERCENT AUTO 6.1 % (0.0-15.0); NEUTROPHILS ABSOLUTE AUTO 2.1 K/uL (1.4-5.7); NRBC ABSOLUTE 0 K/uL; PLATELET COUNT,PLT 168 K/uL (150-400); WHITE BLOOD CELL COUNT,WBC 3.79 K/uL (4.0-11.0)
[2022-08-03 18:19] LABS: ESTIMATED GFR 95 mL/min (>60); LACTIC ACID 1.1 mmol/L (0.4-2.0)
[2022-08-03 20:30] VITALS: BP 107/79; PULSE 98
== END 2022-08-03 20:29 ==
LOC: MW.ED 16:53
DX: I95.9 Hypotension, unspecified (principal); N30.00 Acute cystitis without hematuria; Z88.0 Allergy status to penicillin; Z91.030 Bee allergy status
CPT/HCPCS: 36415; 71045; 80053; 81001; 82550; 83605; 83690; 83735; 84484; 85025; 87040; 87077; 87186; 93005; 96365; 99285; J0692; J3490; J7040; 93010; 99284

== ENCOUNTER 2024-05-27 13:45 | Inpatient (IN) | payer MEDICARE, MEDICAID ==
[2024-05-27] MEDS ORDERED: Sodium Chloride 0.9% 10 ML Syringe FLUSH PRN (13:52)
[2024-05-27] MEDS ORDERED: Sodium Chloride 0.9% 2.5 ML Syringe FLUSH PRN (13:52)
[2024-05-27 14:04] LABS: BASOPHILS ABSOLUTE AUTO 0.03 K/uL (0.00-0.20); BASOPHILS PERCENT AUTO 0.3 % (0.0-1.0); EOSINOPHILS ABSOLUTE AUTO 0.15 K/uL (0.00-0.45); EOSINOPHILS PERCENT AUTO 1.6 % (0.0-6.0); HEMATOCRIT 54.4 % (37.0-47.0); HEMOGLOBIN 16.5 g/dL (12.0-16.0); IMMATURE GRAN ABSOLUTE AUTO 0.03 K/uL (0.00-0.05); IMMATURE GRAN PERCENT AUTO 0.3 % (0.0-0.4); LYMPHOCYTES ABSOLUTE AUTO 1.82 K/uL (1.00-4.80); LYMPHOCYTES PERCENT AUTO 19.5 % (24.0-44.0); MEAN CORPUSCULAR HEMOGLOBIN 32.9 pg (28.0-32.0); MEAN CORPUSCULAR HGB CONC 30.3 g/dL (32.0-36.0); MEAN PLATELET VOLUME 13.5 fL (9.4-12.3); MONOCYTES ABSOLUTE AUTO 0.41 K/uL (0.00-0.80); MONOCYTES PERCENT AUTO 4.4 % (0.0-8.0); NEUTROPHILS ABSOLUTE AUTO 6.89 K/uL (1.80-7.70); NEUTROPHILS PERCENT AUTO 73.9 % (41.0-71.0); PLATELET COUNT,PLT 109 K/uL (150-400); RED BLOOD CELL COUNT 5.01 M/uL (4.10-5.30); WHITE BLOOD CELL COUNT,WBC 9.33 K/uL (3.9-11.3)
[2024-05-27 14:05] LABS: PH,VENOUS 7.5 (7.32-7.43)
[2024-05-27] MEDS: Sodium Chloride 0.9% 1,000 ML IV ONE (14:15)
[2024-05-27 14:29] LABS: MEAN CORPUSCULAR VOLUME 108.6 fL (83.0-99.0)
[2024-05-27 14:40] LABS: A/G RATIO 0.9 (0.9-1.6); ALANINE AMINOTRANSFERASE,ALT 123 IU/L (14-63); ALBUMIN 3.8 g/dL (3.4-5.0); ALKALINE PHOSPHATASE 105 U/L (46-116); ASPARTATE AMNIOTRANSFERASE,AST 70 IU/L (15-37); BILIRUBIN TOTAL 0.3 mg/dL (0.2-1.0); BLOOD UREA NITROGEN,BUN 63 mg/dL (7.0-18.0); CALCIUM 9.8 mg/dL (8.5-10.1); CARBON DIOXIDE,CO2 33.7 mmol/L (21.0-32.0); CHLORIDE,CL 137 mmol/L (98-107); CREATININE 1.2 mg/dL (0.6-1.0); GLUCOSE RANDOM 134 mg/dL (74-106); MAGNESIUM 3.2 mg/dL (1.8-2.4); POTASSIUM,K 3.7 mmol/L (3.5-5.1); PRO B-TYPE NATRIUR PEPT,BNPPRO 183 pg/mL (0-125); PROTEIN TOTAL,TP 8.1 g/dL (6.4-8.2); TSH ULTRASENSITIVE 0.62 uIU/mL (0.36-3.74)
[2024-05-27 14:51] LABS: ESTIMATED GFR 50 mL/min (>60); SODIUM,NA 180 mmol/L (136-145)
[2024-05-27] MEDS: cefTRIAXone 1 GM in Water For Injection, Sterile 10 ML IVPUSH ONE (15:15)
[2024-05-27] MEDS: Azithromycin 500 MG in Sodium Chloride 0.9% 250 ML IV ONE (15:15)
[2024-05-27 15:25] LABS: LACTIC ACID 1.7 mmol/L (0.4-2.0)
[2024-05-27] MEDS: Lactated Ringers 1,000 ML IV ONE (17:09)
[2024-05-27] MEDS: LORazepam 2 MG/ML SDV IVPUSH ONE (17:09)
[2024-05-27] MEDS: Dextrose 5% in Water 1,000 ML IV STA (17:46)
[2024-05-27 18:10] LABS: BLOOD UREA NITROGEN,BUN 54 mg/dL (7.0-18.0); CALCIUM 8.4 mg/dL (8.5-10.1); CARBON DIOXIDE,CO2 31.6 mmol/L (21.0-32.0); CHLORIDE,CL 141 mmol/L (98-107); GLUCOSE RANDOM 94 mg/dL (74-106); POTASSIUM,K 3.3 mmol/L (3.5-5.1)
[2024-05-27 18:23] LABS: ESTIMATED GFR 62 mL/min (>60); SODIUM,NA 181 mmol/L (136-145)
[2024-05-27] MEDS: Iopamidol 755 MG/ML 500 ML Multipack Bottle IVPUSH STA (18:42)
[2024-05-27] MEDS ORDERED: Dextrose 5% in Water 1,000 ML IV SCH (19:30)
[2024-05-27] MEDS ORDERED: Potassium Chloride 100 ML IV SCH ×2 (20:30→23:15)
[2024-05-27] MEDS: Dextrose 5% in Water 1,000 ML IV SCH (20:47)
[2024-05-27] MEDS ORDERED: LORazepam 2 MG/ML SDV IVPUSH PRN (20:48)
[2024-05-27] MEDS: Potassium Chloride 100 ML IV SCH (20:54)
[2024-05-27] MEDS: Heparin Sodium 5,000 Units/ML Vial SUBCUT SCH (21:00)
[2024-05-27 21:23] LABS: APPEARANCE,URINE CLOUDY; BILIRUBIN,URINE NEGATIVE (NEGATIVE); GLUCOSE,URINE NEGATIVE (NEGATIVE); KETONES,URINE NEGATIVE (NEGATIVE); LEUKOCYTE ESTERASE,URINE MODERATE (NEGATIVE); NITRITE,URINE POSITIVE (NEGATIVE); OCCULT BLOOD,URINE LARGE (NEGATIVE); PROTEIN,URINE 100 mg/dL (NEGATIVE)
[2024-05-27 21:34] LABS: BACTERIA,URINE RARE (NEGATIVE); EPITHELIAL CELLS,URINE FEW (NONE-FEW); RBC,URINE 80-100 (0-2/HPF); TRIPLE PHOSPHATE CRYSTALS,UR RARE (NEGATIVE)
[2024-05-27 21:41] LABS: COLOR,URINE YELLOW
[2024-05-27 22:35] LABS: BLOOD UREA NITROGEN,BUN 40 mg/dL (7.0-18.0); CALCIUM 8.1 mg/dL (8.5-10.1); CARBON DIOXIDE,CO2 31.4 mmol/L (21.0-32.0); CHLORIDE,CL 130 mmol/L (98-107); GLUCOSE RANDOM 198 mg/dL (74-106); POTASSIUM,K 3.2 mmol/L (3.5-5.1)
[2024-05-27 22:36] LABS: ESTIMATED GFR 62 mL/min (>60); SODIUM,NA 169 mmol/L (136-145)
[2024-05-27] MEDS: Potassium Chloride 100 ML IV ONE (23:26)
[2024-05-28] MEDS ORDERED: Potassium Chloride 100 ML IV ONE ×2 (00:01→00:30)
[2024-05-28] MEDS ORDERED: Potassium Chloride 100 ML IV SCH (00:30)
[2024-05-28] MEDS: Potassium Chloride 100 ML IV ONE (00:30)
[2024-05-28] MEDS ORDERED: Potassium Chloride 40 MEQ/20 ML SDV IV ONE (01:30)
[2024-05-28 02:36] LABS: BLOOD UREA NITROGEN,BUN 39 mg/dL (7.0-18.0); CALCIUM 8.1 mg/dL (8.5-10.1); CARBON DIOXIDE,CO2 28.8 mmol/L (21.0-32.0); CHLORIDE,CL 133 mmol/L (98-107); CREATININE 0.8 mg/dL (0.6-1.0); GLUCOSE RANDOM 67 mg/dL (74-106); POTASSIUM,K 3.9 mmol/L (3.5-5.1)
[2024-05-28 02:38] LABS: ESTIMATED GFR 81 mL/min (>60); SODIUM,NA 168 mmol/L (136-145)
[2024-05-28 06:38] LABS: HEMOGLOBIN A1C 5.5 %
[2024-05-28 06:51] LABS: HEMATOCRIT 36.7 % (37.0-47.0); HEMOGLOBIN 11.4 g/dL (12.0-16.0); IMMATURE GRAN ABSOLUTE AUTO 0.06 K/uL (0.00-0.05); IMMATURE GRAN PERCENT AUTO 0.5 % (0.0-0.4); MEAN CORPUSCULAR HEMOGLOBIN 32.6 pg (28.0-32.0); MEAN CORPUSCULAR HGB CONC 31.1 g/dL (32.0-36.0); MEAN CORPUSCULAR VOLUME 104.9 fL (83.0-99.0); MEAN PLATELET VOLUME 13.7 fL (9.4-12.3); PLATELET COUNT,PLT 72 K/uL (150-400); WHITE BLOOD CELL COUNT,WBC 12.41 K/uL (3.9-11.3)
[2024-05-28 07:29] LABS: BLOOD UREA NITROGEN,BUN 37 mg/dL (7.0-18.0); CALCIUM 8.4 mg/dL (8.5-10.1); CARBON DIOXIDE,CO2 30.9 mmol/L (21.0-32.0); CHLORIDE,CL 133 mmol/L (98-107); CREATININE 0.9 mg/dL (0.6-1.0); GLUCOSE RANDOM 94 mg/dL (74-106); MAGNESIUM 2.5 mg/dL (1.8-2.4); PHOSPHORUS 1.9 mg/dL (2.6-4.7); POTASSIUM,K 3.8 mmol/L (3.5-5.1)
[2024-05-28 07:32] LABS: ESTIMATED GFR 70 mL/min (>60); SODIUM,NA 171 mmol/L (136-145)
[2024-05-28] MEDS: Potassium Phosphates 30 MMOLE in Sodium Chloride 0.9% 500 ML IV ONE (08:57)
[2024-05-28] MEDS: Pantoprazole 40 MG in Sodium Chloride 0.9% 10 ML IVPUSH SCH (08:59)
[2024-05-28 10:50] LABS: BLOOD UREA NITROGEN,BUN 38 mg/dL (7.0-18.0); CALCIUM 8.2 mg/dL (8.5-10.1); CHLORIDE,CL 133 mmol/L (98-107); CREATININE 0.8 mg/dL (0.6-1.0); GLUCOSE RANDOM 87 mg/dL (74-106); MAGNESIUM 2.6 mg/dL (1.8-2.4); PHOSPHORUS 3.5 mg/dL (2.6-4.7); POTASSIUM,K 4.1 mmol/L (3.5-5.1)
[2024-05-28 11:01] LABS: ESTIMATED GFR 81 mL/min (>60); SODIUM,NA 170 mmol/L (136-145)
[2024-05-28 14:58] LABS: BLOOD UREA NITROGEN,BUN 35 mg/dL (7.0-18.0); CALCIUM 7.9 mg/dL (8.5-10.1); CARBON DIOXIDE,CO2 28.4 mmol/L (21.0-32.0); CHLORIDE,CL 134 mmol/L (98-107); CREATININE 0.8 mg/dL (0.6-1.0); GLUCOSE RANDOM 76 mg/dL (74-106); MAGNESIUM 2.4 mg/dL (1.8-2.4); PHOSPHORUS 6.4 mg/dL (2.6-4.7); POTASSIUM,K 4.7 mmol/L (3.5-5.1)
[2024-05-28 15:01] LABS: ESTIMATED GFR 81 mL/min (>60); SODIUM,NA 170 mmol/L (136-145)
[2024-05-28] MEDS: levETIRAcetam 500 MG/5 ML SDV IVPUSH SCH (15:02)
[2024-05-28 18:50] LABS: BLOOD UREA NITROGEN,BUN 32 mg/dL (7.0-18.0); CALCIUM 7.9 mg/dL (8.5-10.1); CHLORIDE,CL 133 mmol/L (98-107); CREATININE 0.7 mg/dL (0.6-1.0); GLUCOSE RANDOM 74 mg/dL (74-106); MAGNESIUM 2.4 mg/dL (1.8-2.4); PHOSPHORUS 2.9 mg/dL (2.6-4.7); POTASSIUM,K 3.9 mmol/L (3.5-5.1)
[2024-05-28 18:52] LABS: ESTIMATED GFR 95 mL/min (>60); SODIUM,NA 168 mmol/L (136-145)
[2024-05-28] MEDS: Heparin Sodium 5,000 Units/ML Vial SUBCUT SCH (21:07)
[2024-05-28 22:50] LABS: BLOOD UREA NITROGEN,BUN 33 mg/dL (7.0-18.0); CALCIUM 8.2 mg/dL (8.5-10.1); CHLORIDE,CL 133 mmol/L (98-107); CREATININE 0.7 mg/dL (0.6-1.0); GLUCOSE RANDOM 57 mg/dL (74-106); MAGNESIUM 2.5 mg/dL (1.8-2.4); PHOSPHORUS 2.6 mg/dL (2.6-4.7); POTASSIUM,K 3.9 mmol/L (3.5-5.1)
[2024-05-28 22:52] LABS: ESTIMATED GFR 95 mL/min (>60); SODIUM,NA 168 mmol/L (136-145)
[2024-05-29] MEDS ORDERED: Potassium Chloride 100 ML IV SCH (00:30)
[2024-05-29 02:41] LABS: BLOOD UREA NITROGEN,BUN 37 mg/dL (7.0-18.0); CALCIUM 8.2 mg/dL (8.5-10.1); CARBON DIOXIDE,CO2 25.2 mmol/L (21.0-32.0); CHLORIDE,CL 132 mmol/L (98-107); CREATININE 0.8 mg/dL (0.6-1.0); GLUCOSE RANDOM 52 mg/dL (74-106); MAGNESIUM 2.4 mg/dL (1.8-2.4); PHOSPHORUS 2.8 mg/dL (2.6-4.7); POTASSIUM,K 3.7 mmol/L (3.5-5.1)
[2024-05-29 02:47] LABS: ESTIMATED GFR 81 mL/min (>60); SODIUM,NA 170 mmol/L (136-145)
[2024-05-29] MEDS: Dextrose 5% in Water 1,000 ML IV SCH ×2 (03:09→17:11)
[2024-05-29 07:09] LABS: BASOPHILS ABSOLUTE AUTO 0.02 K/uL (0.00-0.20); BASOPHILS PERCENT AUTO 0.3 % (0.0-1.0); EOSINOPHILS ABSOLUTE AUTO 0.19 K/uL (0.00-0.45); HEMATOCRIT 33.8 % (37.0-47.0); HEMOGLOBIN 10.1 g/dL (12.0-16.0); IMMATURE GRAN ABSOLUTE AUTO 0.04 K/uL (0.00-0.05); IMMATURE GRAN PERCENT AUTO 0.6 % (0.0-0.4); LYMPHOCYTES ABSOLUTE AUTO 1.36 K/uL (1.00-4.80); LYMPHOCYTES PERCENT AUTO 21.5 % (24.0-44.0); MEAN CORPUSCULAR HEMOGLOBIN 32.3 pg (28.0-32.0); MEAN CORPUSCULAR HGB CONC 29.9 g/dL (32.0-36.0); MEAN PLATELET VOLUME 14.1 fL (9.4-12.3); MONOCYTES ABSOLUTE AUTO 0.17 K/uL (0.00-0.80); MONOCYTES PERCENT AUTO 2.7 % (0.0-8.0); NEUTROPHILS ABSOLUTE AUTO 4.55 K/uL (1.80-7.70); NEUTROPHILS PERCENT AUTO 71.9 % (41.0-71.0); RED BLOOD CELL COUNT 3.13 M/uL (4.10-5.30); WHITE BLOOD CELL COUNT,WBC 6.33 K/uL (3.9-11.3)
[2024-05-29 07:28] LABS: BLOOD UREA NITROGEN,BUN 36 mg/dL (7.0-18.0); CALCIUM 8.1 mg/dL (8.5-10.1); CARBON DIOXIDE,CO2 26.2 mmol/L (21.0-32.0); CHLORIDE,CL 131 mmol/L (98-107); CREATININE 0.7 mg/dL (0.6-1.0); GLUCOSE RANDOM 93 mg/dL (74-106); MAGNESIUM 2.4 mg/dL (1.8-2.4); PHOSPHORUS 2.4 mg/dL (2.6-4.7); POTASSIUM,K 3.5 mmol/L (3.5-5.1)
[2024-05-29 07:49] LABS: ESTIMATED GFR 95 mL/min (>60); SODIUM,NA 166 mmol/L (136-145)
[2024-05-29 08:11] LABS: PLATELET COUNT,PLT 55 K/uL (150-400)
[2024-05-29 10:37] LABS: BLOOD UREA NITROGEN,BUN 35 mg/dL (7.0-18.0); CALCIUM 8.1 mg/dL (8.5-10.1); CARBON DIOXIDE,CO2 26.2 mmol/L (21.0-32.0); CHLORIDE,CL 128 mmol/L (98-107); CREATININE 0.7 mg/dL (0.6-1.0); GLUCOSE RANDOM 98 mg/dL (74-106); POTASSIUM,K 3.3 mmol/L (3.5-5.1)
[2024-05-29 10:47] LABS: ESTIMATED GFR 95 mL/min (>60); SODIUM,NA 163 mmol/L (136-145)
[2024-05-29 14:34] LABS: BLOOD UREA NITROGEN,BUN 35 mg/dL (7.0-18.0); CALCIUM 8.2 mg/dL (8.5-10.1); CARBON DIOXIDE,CO2 25.5 mmol/L (21.0-32.0); CHLORIDE,CL 128 mmol/L (98-107); CREATININE 0.7 mg/dL (0.6-1.0); GLUCOSE RANDOM 91 mg/dL (74-106); PHOSPHORUS 1.8 mg/dL (2.6-4.7); POTASSIUM,K 3.5 mmol/L (3.5-5.1)
[2024-05-29 14:51] LABS: ESTIMATED GFR 95 mL/min (>60); SODIUM,NA 164 mmol/L (136-145)
[2024-05-29] MEDS: Potassium Phosphates 30 MMOLE in Sodium Chloride 0.9% 500 ML IV ONE (16:48)
[2024-05-29 18:35] LABS: BLOOD UREA NITROGEN,BUN 33 mg/dL (7.0-18.0); CALCIUM 8.1 mg/dL (8.5-10.1); CARBON DIOXIDE,CO2 25.7 mmol/L (21.0-32.0); CHLORIDE,CL 126 mmol/L (98-107); CREATININE 0.6 mg/dL (0.6-1.0); GLUCOSE RANDOM 108 mg/dL (74-106); PHOSPHORUS 2.7 mg/dL (2.6-4.7); POTASSIUM,K 3.7 mmol/L (3.5-5.1)
[2024-05-29 18:36] LABS: ESTIMATED GFR 98 mL/min (>60); SODIUM,NA 162 mmol/L (136-145)
[2024-05-29 22:37] LABS: BLOOD UREA NITROGEN,BUN 28 mg/dL (7.0-18.0); CALCIUM 7.9 mg/dL (8.5-10.1); CARBON DIOXIDE,CO2 24.6 mmol/L (21.0-32.0); CHLORIDE,CL 125 mmol/L (98-107); CREATININE 0.6 mg/dL (0.6-1.0); GLUCOSE RANDOM 116 mg/dL (74-106); MAGNESIUM 2.2 mg/dL (1.8-2.4); PHOSPHORUS 3.7 mg/dL (2.6-4.7); SODIUM,NA 159 mmol/L (136-145)
[2024-05-29 22:38] LABS: ESTIMATED GFR 98 mL/min (>60)
[2024-05-30] MEDS: Dextrose 5% in Water 1,000 ML IV SCH ×2 (00:59→14:00)
[2024-05-30 03:01] LABS: BLOOD UREA NITROGEN,BUN 24 mg/dL (7.0-18.0); CALCIUM 7.6 mg/dL (8.5-10.1); CARBON DIOXIDE,CO2 27.6 mmol/L (21.0-32.0); CHLORIDE,CL 122 mmol/L (98-107); CREATININE 0.6 mg/dL (0.6-1.0); GLUCOSE RANDOM 104 mg/dL (74-106); PHOSPHORUS 2.3 mg/dL (2.6-4.7); POTASSIUM,K 3.5 mmol/L (3.5-5.1); SODIUM,NA 155 mmol/L (136-145)
[2024-05-30 03:11] LABS: ESTIMATED GFR 98 mL/min (>60)
[2024-05-30 06:28] LABS: BASOPHILS ABSOLUTE AUTO 0.03 K/uL (0.00-0.20); BASOPHILS PERCENT AUTO 0.5 % (0.0-1.0); EOSINOPHILS ABSOLUTE AUTO 0.34 K/uL (0.00-0.45); EOSINOPHILS PERCENT AUTO 6.2 % (0.0-6.0); HEMATOCRIT 31.8 % (37.0-47.0); HEMOGLOBIN 10.4 g/dL (12.0-16.0); IMMATURE GRAN ABSOLUTE AUTO 0.07 K/uL (0.00-0.05); IMMATURE GRAN PERCENT AUTO 1.3 % (0.0-0.4); LYMPHOCYTES ABSOLUTE AUTO 1.43 K/uL (1.00-4.80); LYMPHOCYTES PERCENT AUTO 26.1 % (24.0-44.0); MEAN CORPUSCULAR HEMOGLOBIN 33.4 pg (28.0-32.0); MEAN CORPUSCULAR HGB CONC 32.7 g/dL (32.0-36.0); MEAN CORPUSCULAR VOLUME 102.3 fL (83.0-99.0); MEAN PLATELET VOLUME 13.4 fL (9.4-12.3); MONOCYTES ABSOLUTE AUTO 0.25 K/uL (0.00-0.80); MONOCYTES PERCENT AUTO 4.6 % (0.0-8.0); NEUTROPHILS ABSOLUTE AUTO 3.35 K/uL (1.80-7.70); NEUTROPHILS PERCENT AUTO 61.3 % (41.0-71.0); PLATELET COUNT,PLT 61 K/uL (150-400); RED BLOOD CELL COUNT 3.11 M/uL (4.10-5.30); WHITE BLOOD CELL COUNT,WBC 5.47 K/uL (3.9-11.3)
[2024-05-30 06:42] LABS: BLOOD UREA NITROGEN,BUN 22 mg/dL (7.0-18.0); CALCIUM 8.1 mg/dL (8.5-10.1); CARBON DIOXIDE,CO2 22.7 mmol/L (21.0-32.0); CHLORIDE,CL 121 mmol/L (98-107); CREATININE 0.5 mg/dL (0.6-1.0); GLUCOSE RANDOM 81 mg/dL (74-106); MAGNESIUM 2.1 mg/dL (1.8-2.4); POTASSIUM,K 3.7 mmol/L (3.5-5.1); SODIUM,NA 155 mmol/L (136-145)
[2024-05-30 06:50] LABS: ESTIMATED GFR 103 mL/min (>60)
[2024-05-30 10:56] LABS: BLOOD UREA NITROGEN,BUN 20 mg/dL (7.0-18.0); CARBON DIOXIDE,CO2 23.4 mmol/L (21.0-32.0); CHLORIDE,CL 119 mmol/L (98-107); CREATININE 0.5 mg/dL (0.6-1.0); ESTIMATED GFR 103 mL/min (>60); GLUCOSE RANDOM 78 mg/dL (74-106); POTASSIUM,K 3.7 mmol/L (3.5-5.1); SODIUM,NA 153 mmol/L (136-145)
[2024-05-30 14:49] LABS: BLOOD UREA NITROGEN,BUN 18 mg/dL (7.0-18.0); CALCIUM 8.2 mg/dL (8.5-10.1); CARBON DIOXIDE,CO2 23.3 mmol/L (21.0-32.0); CHLORIDE,CL 117 mmol/L (98-107); CREATININE 0.5 mg/dL (0.6-1.0); ESTIMATED GFR 103 mL/min (>60); GLUCOSE RANDOM 83 mg/dL (74-106); POTASSIUM,K 3.9 mmol/L (3.5-5.1); SODIUM,NA 149 mmol/L (136-145)
[2024-05-30 18:47] LABS: BLOOD UREA NITROGEN,BUN 15 mg/dL (7.0-18.0); CARBON DIOXIDE,CO2 23.1 mmol/L (21.0-32.0); CHLORIDE,CL 113 mmol/L (98-107); CREATININE 0.5 mg/dL (0.6-1.0); GLUCOSE RANDOM 90 mg/dL (74-106); POTASSIUM,K 3.4 mmol/L (3.5-5.1); SODIUM,NA 147 mmol/L (136-145)
[2024-05-30 18:48] LABS: ESTIMATED GFR 103 mL/min (>60)
[2024-05-30] MEDS: Potassium Chloride 20 MEQ Tab.ER PO ONE (20:30)
[2024-05-30] MEDS: Potassium Phosphates 30 MMOLE in Sodium Chloride 0.9% 500 ML IV ONE (22:42)
[2024-05-30 23:01] LABS: BLOOD UREA NITROGEN,BUN 13 mg/dL (7.0-18.0); CARBON DIOXIDE,CO2 24.2 mmol/L (21.0-32.0); CHLORIDE,CL 112 mmol/L (98-107); CREATININE 0.5 mg/dL (0.6-1.0); GLUCOSE RANDOM 81 mg/dL (74-106); POTASSIUM,K 3.5 mmol/L (3.5-5.1); SODIUM,NA 145 mmol/L (136-145)
[2024-05-30 23:05] LABS: ESTIMATED GFR 103 mL/min (>60)
[2024-05-31 02:56] LABS: BLOOD UREA NITROGEN,BUN 11 mg/dL (7.0-18.0); CALCIUM 8.1 mg/dL (8.5-10.1); CARBON DIOXIDE,CO2 24.4 mmol/L (21.0-32.0); CHLORIDE,CL 110 mmol/L (98-107); CREATININE 0.5 mg/dL (0.6-1.0); GLUCOSE RANDOM 69 mg/dL (74-106); POTASSIUM,K 4.3 mmol/L (3.5-5.1); SODIUM,NA 144 mmol/L (136-145)
[2024-05-31 03:30] LABS: ESTIMATED GFR 103 mL/min (>60)
[2024-05-31 06:34] LABS: BASOPHILS ABSOLUTE AUTO 0.02 K/uL (0.00-0.20); BASOPHILS PERCENT AUTO 0.3 % (0.0-1.0); EOSINOPHILS ABSOLUTE AUTO 0.27 K/uL (0.00-0.45); EOSINOPHILS PERCENT AUTO 4.6 % (0.0-6.0); HEMATOCRIT 33.8 % (37.0-47.0); HEMOGLOBIN 11.5 g/dL (12.0-16.0); IMMATURE GRAN ABSOLUTE AUTO 0.07 K/uL (0.00-0.05); IMMATURE GRAN PERCENT AUTO 1.2 % (0.0-0.4); LYMPHOCYTES ABSOLUTE AUTO 1.36 K/uL (1.00-4.80); LYMPHOCYTES PERCENT AUTO 23.1 % (24.0-44.0); MEAN CORPUSCULAR HEMOGLOBIN 32.8 pg (28.0-32.0); MEAN CORPUSCULAR VOLUME 96.3 fL (83.0-99.0); MEAN PLATELET VOLUME 12.7 fL (9.4-12.3); MONOCYTES ABSOLUTE AUTO 0.32 K/uL (0.00-0.80); MONOCYTES PERCENT AUTO 5.4 % (0.0-8.0); NEUTROPHILS ABSOLUTE AUTO 3.85 K/uL (1.80-7.70); NEUTROPHILS PERCENT AUTO 65.4 % (41.0-71.0); PLATELET COUNT,PLT 78 K/uL (150-400); RED BLOOD CELL COUNT 3.51 M/uL (4.10-5.30); WHITE BLOOD CELL COUNT,WBC 5.89 K/uL (3.9-11.3)
[2024-05-31 06:49] LABS: BLOOD UREA NITROGEN,BUN 10 mg/dL (7.0-18.0); CALCIUM 8.1 mg/dL (8.5-10.1); CARBON DIOXIDE,CO2 24.7 mmol/L (21.0-32.0); CHLORIDE,CL 114 mmol/L (98-107); CREATININE 0.5 mg/dL (0.6-1.0); GLUCOSE RANDOM 79 mg/dL (74-106); POTASSIUM,K 4.5 mmol/L (3.5-5.1); SODIUM,NA 147 mmol/L (136-145)
[2024-05-31 06:52] LABS: ESTIMATED GFR 103 mL/min (>60)
[2024-05-31 11:08] LABS: BLOOD UREA NITROGEN,BUN 10 mg/dL (7.0-18.0); CALCIUM 8.5 mg/dL (8.5-10.1); CARBON DIOXIDE,CO2 21.4 mmol/L (21.0-32.0); CHLORIDE,CL 111 mmol/L (98-107); CREATININE 0.5 mg/dL (0.6-1.0); ESTIMATED GFR 103 mL/min (>60); GLUCOSE RANDOM 74 mg/dL (74-106); SODIUM,NA 145 mmol/L (136-145)
[2024-05-31 15:05] LABS: BLOOD UREA NITROGEN,BUN 10 mg/dL (7.0-18.0); CALCIUM 8.6 mg/dL (8.5-10.1); CARBON DIOXIDE,CO2 21.4 mmol/L (21.0-32.0); CHLORIDE,CL 112 mmol/L (98-107); CREATININE 0.5 mg/dL (0.6-1.0); GLUCOSE RANDOM 70 mg/dL (74-106); POTASSIUM,K 4.1 mmol/L (3.5-5.1); SODIUM,NA 146 mmol/L (136-145)
[2024-05-31 15:06] LABS: ESTIMATED GFR 103 mL/min (>60)
[2024-05-31] MEDS: Magnesium Oxide 400 MG Tab PO ONE (18:36)
[2024-05-31 22:28] LABS: BLOOD UREA NITROGEN,BUN 11 mg/dL (7.0-18.0); CALCIUM 8.8 mg/dL (8.5-10.1); CARBON DIOXIDE,CO2 17.2 mmol/L (21.0-32.0); CHLORIDE,CL 109 mmol/L (98-107); CREATININE 0.5 mg/dL (0.6-1.0); GLUCOSE RANDOM 66 mg/dL (74-106); POTASSIUM,K 3.8 mmol/L (3.5-5.1); SODIUM,NA 142 mmol/L (136-145)
[2024-05-31 22:31] LABS: ESTIMATED GFR 103 mL/min (>60)
[2024-06-01 06:28] LABS: BASOPHILS ABSOLUTE AUTO 0.02 K/uL (0.00-0.20); BASOPHILS PERCENT AUTO 0.3 % (0.0-1.0); EOSINOPHILS ABSOLUTE AUTO 0.09 K/uL (0.00-0.45); EOSINOPHILS PERCENT AUTO 1.5 % (0.0-6.0); HEMATOCRIT 38.8 % (37.0-47.0); HEMOGLOBIN 12.6 g/dL (12.0-16.0); IMMATURE GRAN ABSOLUTE AUTO 0.11 K/uL (0.00-0.05); IMMATURE GRAN PERCENT AUTO 1.8 % (0.0-0.4); LYMPHOCYTES ABSOLUTE AUTO 1.15 K/uL (1.00-4.80); LYMPHOCYTES PERCENT AUTO 18.5 % (24.0-44.0); MEAN CORPUSCULAR HEMOGLOBIN 31.7 pg (28.0-32.0); MEAN CORPUSCULAR HGB CONC 32.5 g/dL (32.0-36.0); MEAN CORPUSCULAR VOLUME 97.5 fL (83.0-99.0); MEAN PLATELET VOLUME 12.3 fL (9.4-12.3); MONOCYTES ABSOLUTE AUTO 0.37 K/uL (0.00-0.80); NEUTROPHILS ABSOLUTE AUTO 4.46 K/uL (1.80-7.70); NEUTROPHILS PERCENT AUTO 71.9 % (41.0-71.0); PLATELET COUNT,PLT 100 K/uL (150-400); RED BLOOD CELL COUNT 3.98 M/uL (4.10-5.30)
[2024-06-01 06:53] LABS: ALANINE AMINOTRANSFERASE,ALT 34 IU/L (14-63); ALBUMIN 2.4 g/dL (3.4-5.0); ALKALINE PHOSPHATASE 74 U/L (46-116); ASPARTATE AMNIOTRANSFERASE,AST 37 IU/L (15-37); BILIRUBIN TOTAL 0.5 mg/dL (0.2-1.0); BLOOD UREA NITROGEN,BUN 14 mg/dL (7.0-18.0); CALCIUM 8.7 mg/dL (8.5-10.1); CHLORIDE,CL 111 mmol/L (98-107); CREATININE 0.6 mg/dL (0.6-1.0); GLUCOSE RANDOM 67 mg/dL (74-106); POTASSIUM,K 3.9 mmol/L (3.5-5.1); PROTEIN TOTAL,TP 6.1 g/dL (6.4-8.2); SODIUM,NA 144 mmol/L (136-145)
[2024-06-01 06:55] LABS: A/G RATIO 0.7 (0.9-1.6); ESTIMATED GFR 98 mL/min (>60)
[2024-06-01] MEDS ORDERED: LORazepam 2 MG/ML SDV IVPUSH PRN (09:31)
[2024-06-02 06:35] LABS: BASOPHILS ABSOLUTE AUTO 0.04 K/uL (0.00-0.20); BASOPHILS PERCENT AUTO 0.6 % (0.0-1.0); EOSINOPHILS ABSOLUTE AUTO 0.23 K/uL (0.00-0.45); EOSINOPHILS PERCENT AUTO 3.4 % (0.0-6.0); HEMATOCRIT 38.2 % (37.0-47.0); HEMOGLOBIN 12.8 g/dL (12.0-16.0); IMMATURE GRAN ABSOLUTE AUTO 0.14 K/uL (0.00-0.05); IMMATURE GRAN PERCENT AUTO 2.1 % (0.0-0.4); LYMPHOCYTES ABSOLUTE AUTO 1.35 K/uL (1.00-4.80); LYMPHOCYTES PERCENT AUTO 20.1 % (24.0-44.0); MEAN CORPUSCULAR HEMOGLOBIN 32.7 pg (28.0-32.0); MEAN CORPUSCULAR HGB CONC 33.5 g/dL (32.0-36.0); MEAN CORPUSCULAR VOLUME 97.7 fL (83.0-99.0); MEAN PLATELET VOLUME 12.1 fL (9.4-12.3); MONOCYTES ABSOLUTE AUTO 0.42 K/uL (0.00-0.80); MONOCYTES PERCENT AUTO 6.3 % (0.0-8.0); NEUTROPHILS ABSOLUTE AUTO 4.53 K/uL (1.80-7.70); NEUTROPHILS PERCENT AUTO 67.5 % (41.0-71.0); PLATELET COUNT,PLT 109 K/uL (150-400); RED BLOOD CELL COUNT 3.91 M/uL (4.10-5.30); WHITE BLOOD CELL COUNT,WBC 6.71 K/uL (3.9-11.3)
[2024-06-02 07:02] LABS: A/G RATIO 0.7 (0.9-1.6); ALANINE AMINOTRANSFERASE,ALT 39 IU/L (14-63); ALBUMIN 2.7 g/dL (3.4-5.0); ALKALINE PHOSPHATASE 81 U/L (46-116); ASPARTATE AMNIOTRANSFERASE,AST 47 IU/L (15-37); BILIRUBIN TOTAL 0.5 mg/dL (0.2-1.0); BLOOD UREA NITROGEN,BUN 21 mg/dL (7.0-18.0); CALCIUM 8.9 mg/dL (8.5-10.1); CARBON DIOXIDE,CO2 17.5 mmol/L (21.0-32.0); CHLORIDE,CL 111 mmol/L (98-107); CREATININE 0.5 mg/dL (0.6-1.0); GLUCOSE RANDOM 52 mg/dL (74-106); MAGNESIUM 1.9 mg/dL (1.8-2.4); POTASSIUM,K 3.7 mmol/L (3.5-5.1); PROTEIN TOTAL,TP 6.4 g/dL (6.4-8.2); SODIUM,NA 147 mmol/L (136-145)
[2024-06-02 07:13] LABS: ESTIMATED GFR 103 mL/min (>60)
[2024-06-02 14:01] VITALS: PULSE 84
[2024-06-02 15:14] VITALS: BP 105/65
== END 2024-06-02 13:30 | DRG 640 ==
LOC: MW.ED 13:45 → MW.ICU 18:09 → MW.MS 05-30 19:43
PROVIDERS: ADMIT Family Medicine; ATTEND Family Medicine
PROC: 06HY33Z Insertion of Infusion Device into Lower Vein, Percutaneous Approach (ICD-10-PCS; principal; 2024-05-27)
DX: E87.0 Hyperosmolality and hypernatremia (principal); J18.9 Pneumonia, unspecified organism; J96.01 Acute respiratory failure with hypoxia; Z75.8 Other problems related to medical facilities and other health care; N39.0 Urinary tract infection, site not specified; Z66 Do not resuscitate; D69.6 Thrombocytopenia, unspecified; F31.9 Bipolar disorder, unspecified; I50.9 Heart failure, unspecified; M19.90 Unspecified osteoarthritis, unspecified site; K59.09 Other constipation; F39 Unspecified mood [affective] disorder; F43.10 Post-traumatic stress disorder, unspecified; E03.9 Hypothyroidism, unspecified; G31.84 Mild cognitive impairment of uncertain or unknown etiology; R62.7 Adult failure to thrive; D75.89 Other specified diseases of blood and blood-forming organs; R56.9 Unspecified convulsions; E87.6 Hypokalemia; Z88.0 Allergy status to penicillin; Z91.030 Bee allergy status; Z79.1 Long term (current) use of non-steroidal anti-inflammatories (NSAID); Z79.899 Other long term (current) drug therapy
CPT/HCPCS: 36415; 51702; 71045; 80048; 80053; 82803; 82947; 83605; 83735; 83880; 84443; 84484; 85025; 85379; 87040 ×2; 87428; 93005 ×2; 96361; 96365; 96375; 99285; J0456; J0696; J2060; J7030; J7050; J7070; J7120; 70450; 70450-26; 71275; 71275-26; 81001; 82607; 82746; 83036; 83930; 83935; 84100; 85027; 87086; 87899; 93010; A9270-GY; J0692; J1644; J1953; J2470; J3480; J3490; J7040; J7060; Q9967